=== PATIENT | female | born 1945 | race Caucasian/White ===

== ENCOUNTER 2017-08-26 23:42 | Inpatient (IN) ==
[2017-08-27] MEDS ORDERED: Naloxone 0.4 MG/ML INJ IVP PRN (03:22)
[2017-08-27] MEDS: D5% in 0.45% NACL 1,000 ML IVC SCH ×2 (03:41→14:36)
--- NOTE | 2017-08-27 03:54 | Internal Med History&Physical ---
<Kai Cunha - Last Filed: 08/27/17 04:15> Date of Encounter: 08/27/17 Time of Encounter: 03:38 Assessment and Plan (1) Trismus Current visit: Yes Status: Acute Trismus possibly secondary to PSP vs. Oropharyngeal infection The patient apparently has documented history of PSP which has been treated by neurology She got a dose of diazepam at previous ER which was not very helpful Although the patient does have trismus, she remains stable by every standard Although PSP may be the cause, I will evaluate for possible signs of infection CT head/soft tissue neck with contrast Consult to Neuro + ENT in the morning Maintain NPO diet, maintain Aspiration precautions Will give maintenance fluids IV, D5 1/2 NS at rate of 100mls/hr This patient expected to have poor prognosis due to progessive degenerative neurological disease. (2) Progressive supranuclear palsy Current visit: Yes Status: Acute PSP by personal history Treated by neurology but not on any medications at this time We will get a neurology consult in the morning (3) Aspiration pneumonia due to gastric secretions Current visit: Yes Status: Acute Aspiration in Middle and Lower lobe of Right lung, demonstrated on CT Chest Likely due to dysphagia while eating and aspiration of oral secretions The patient recieved Rocephin and Azithromycin in the ED in [place] We will start her on IV Zosyn 3.375 q6h Maintain NPO diet, Aspiration precautions Qualifiers: Laterality: right Lung location: middle lobe of lung Qualified Code(s): J69.0 - Pneumonitis due to inhalation of food and vomit (4) Protein calorie malnutrition Current visit: Yes Status: Acute Severe protein calorie malnutrition, BMI 14.8 Patient remains NPO at this time We will start IV Fluids with D5 1/2 NS, consider alternatives in future as needed Qualifiers: Protein-calorie malnutrition severity: severe Qualified Code(s): E43 - Unspecified severe protein-calorie malnutrition (5) DVT prophylaxis Current visit: Yes Status: Acute SQ Heparin Internal Medicine - H&P: HPI Chief complaint: Trismus Admitted From: Hospital to Hospital Transfer Plans for Post Hospital Care: Home History of present illness: Ms. Miguel is a 72 year old female with history of excessive supranuclear palsy (PSP), cardiac ablation due to who presents to a DNR from [facility] due to aspiration pneumonia and trismus. The patient is accompanied by her power of claims attorney and long-time friend, Peyton ([phone]) who provides the majority of The patient's story. The patient apparently has a progressive supranuclear palsy which has resulted in dysphagia, intermittent trismus and left sided body weakness for approximately 9 years. Apparently she regularly has problems with her jaw locking up, which are intermittent in nature, but then generally resolve spontaneously after only a short time. In the past week, the patient has apparently been experiencing more of these than she usually does, but as of this morning it was noted that her jaw remained in a locked position without her being able to move it at all. This is not something that she has ever experienced. In addition, it's noted that the patient has apparently had thicker oral secretions than is usual. In regard to the patient's medical history, Peyton mentions that she's been seen and treated by a neurologist for PSP for as long as she's had the disease. As the disease has progressed, she's noticed that she has had increasing weakness on the left side of her body, and she's been losing weight. The patient is generally relatively independent, despite constant medical assistance, and has been able to move herself into and out of a chair. The patient does ambulate with a walker and with assistance. Until this past June, she has also been able to feed herself. Since june, she has had increased difficulty with self -feeding and ADLs, and has required help to feed herself. Peyton says that the patient has also had more episodes of aspiration and choking related to this as well. She otherwise has no acute complaints. She was seen at the [facility] where she was given 2mg diazepam, which apparently did not help for longer than a minute or two. She did have a CT of the chest which demonstrated extensive aspiration pneumonia in the right middle and lower lobes, without pneumonia present in the left lung. Past Med Surg Social Fam HX - Past Medical History Medical history: pulmonary embolus Psychiatric history: no psych history - Past Surgical History Surgical History: appendectomy, orthopedic, other - Social History Smoking Status: Never smoker Internal Medicine - H&P: Meds 3 Allergy/AdvReac Type Severity Reaction Status Date / Time codeine Allergy Itching Verified 08/27/17 03:51 ROS unobtainable: other (Inability to communicate due to trismus) All Systems PM: A 10-system review of systems was performed and is negative for pertinent findings except as documented above in the HPI. Review of systems: although the patient is unable to personally communicate, her power of claims attorney did indicate that she has had no other acute complaints. She denied complaints from the patient about fever, chills, sweats, cough, chest pains, urinary or bowel problems, abdominal pain, nausea, vomiting, headache. - Constitutional Vitals: Temp Pulse Resp BP Pulse Ox 97.6 F 77 16 110/68 92 08/27/17 02:18 08/27/17 02:18 08/27/17 02:18 08/27/17 02:18 08/27/17 02:18 Exam: Gen.: Vitals noted. HEENT: PERRL, oropharynx unable to be examined 2/2 tightly clenched jaw and increase muscle tonicity, Normocephalic, atraumatic. Mucous membranes appear moist Neck: No adenopathy. Increased tonicity of scalenes, apparent torticolis to the right Cardiac: RRR, no murmur, +S1/S2 Pulmonary: CTA bilaterally, no wheezes, rales or rhonchi, equal chest expansion but technically challenging exam due to inability of patient to fully cooperate Abdomen: soft, nontender, BS noted, no guarding Extremities: no BLE edema, nontender calf, no cyanosis or clubbing Neuro: Challenging to examin, negative babinski, increased muscle tonicity in the neck and muscles of mastication <Frank Raymundo - Last Filed: 08/27/17 04:26> Date of Encounter: 08/27/17 Internal Medicine - H&P: HPI History of present illness: Ms. Miguel is a 72 year old female All Systems PM: A 10-system review of systems was performed and is negative for pertinent findings except as documented above in the HPI. - Constitutional Vitals: Temp Pulse Resp BP Pulse Ox 97.6 F 77 16 110/68 92 08/27/17 02:18 08/27/17 02:18 08/27/17 02:18 08/27/17 02:18 08/27/17 02:18 - Attending Attestation I examined this patient and my medical decision-making was reviewed with the Resident Physician. I agree with the documented findings, disposition and treatment plan as described except to the extent set forth below. Lenore is a 72 yo male who presents with 1 week of progressive jaw trimus, unable to eat. She was transferred from [place] to [facility] for further care after initial triage found her to have a right aspiration PNA , oral secretions in setting of jaw trimus She has had progressive supranuclear palsy for the last 10 years and had been with a neurologist that had retired. She lives alone and has C and POA visiting intermittently. At baseline, she is dependent on assistance for B-ADL. She is a 1 assist with feeding and uses a roller walker. POA reports slow decline since Jun 2017 but had progressed rapidly in the last week with jaw locking up. She takes no medications except for qHS setraline. She has had trimus prior in the past but this presentation is the most severe General - Open eyes Psych - Unable to speech Eyes - Eye lids intact. No scleral icterus Neuro - Does not move, peripheral muscle atrophy. Jaw muscle appears tonic Heart - Sinus. RRR. S1 and S2 present. No added HS/murmurs appreciated. No elevated JVD appreciated. Lung - Adequate air entry b/l, Right side and bibasal crackles GI - Soft, non-tender. No hepatosplenomegaly/ascites. BS+ - No CVA/suprapubic tenderness or palpable bladder distension Skin - Intact. No rash/petechiae/ecchymosis. Warm extremities MSK - mild contracted appearing ROS 14 point review of systems reviewed as best as possible given presentation. Pertinent positive or negative as per HPI or otherwise reviewed as negative A/P 1) Aspiration PNA - IV antibiotics - 2/2 PSP 2) Trismus of jaw - likely related to neurodegenerative disease - PSP - check CT neck to r/o infection - consult ENT, neuro to eval 3) Progressive supranuclear palsy - consult neuro 4) Protein calorie malnutrition Consider palliative care for support, re-visit goals VALENTÍN wishes for full code at current
[2017-08-27 04:23] LABS: Basophils % 0.3 %; Eosinophils % 0.2 %; Hematocrit 29.2 % (35.3-44.9); Hemoglobin 9.3 g/dL (11.5-15.4); Immature Granulocytes % 0.5 % (0-4); Lymphocytes % 16.4 %; Mean Corpuscular HGB Conc 31.8 g/dL (31.6-35.5); Mean Corpuscular Hemoglobin 27.2 pg (28.0-33.3); Mean Corpuscular Volume 85.4 fL (83.0-100.0); Mean Platelet Volume 8.3 fL (9.4-12.4); Monocytes # 0.3 K/mcL (0.0-1.3); Monocytes % 5.8 %; Neutrophils # 4.5 K/mcL (1.6-8.9); Platelet Count 205 K/mcL (140-400); Red Blood Count 3.42 M/mcL (3.82-4.97); Red Cell Distribution Width 15.9 % (11.5-14.5); Segmented Neutrophils % 76.8 %
[2017-08-27 04:47] LABS: BUN/Creatinine Ratio 46 (6-26); Blood Urea Nitrogen 26 mg/dL (8-23); Calcium 8.4 mg/dL (8.6-10.3); Carbon Dioxide 25 mEq/L (23-29); Chloride 116 mEq/L (98-107); Glucose 111 mg/dL (70-105); Osmolality,Calculated 309 (280-300); Sodium 147 mEq/L (136-145); eGFR For African Americans > 60 (> 60); eGFR For Non-African Americans > 60 (> 60)
[2017-08-27 05:11] LABS: Platelet Estimate Normal (Normal)
[2017-08-27] MEDS ORDERED: Piperacillin/Tazobactam 3.375 GM/200 ML BAG IVPB SCH (06:00)
[2017-08-27] MEDS: *HR* Heparin 5,000 UNIT/ML VIAL SQ SCH ×2 (06:42→18:07)
--- NOTE | 2017-08-27 09:09 | Event Note ---
Date of Encounter: 08/27/17 Time of Encounter: 09:08 Gen.: Vitals noted. No acute distress. Patient is non-verbal at baseline and unable to provide a history. Caregiver at bedside. HEENT: oropharynx clear, Normocephalic, atraumatic Neck: Supple. No adenopathy. Cardiac: RRR, no murmur, +S1/S2 Pulmonary: CTA bilaterally, decreased breath sounds on the right side, no wheezes, rales or rhonchi, equal chest expansion Abdomen: soft, nontender, Bowel sounds noted, no guarding MSK: ROM decreased, no joint swelling noted Extremities: no BLE edema, nontender calf, no cyanosis or clubbing Neuro: non-verbal, cannot move all extremities, left sided weakness (chronic), strength 3/5 left side and 4/5 right side UE, hyperreflexia and babinski negative. Psych: Appropriate mood and behavior A/P Trismus secondary to PSP Aspiration pneumonia due to gastric secretions Currently being treated w/ Zosyn IVP Q8H Progressive supranuclear palsy Neurology consult Protein calorie malnutrition BMI of 14.8. Patient remains NPO at this time. Perhaps consult scientific aide when no longer NPO. DVT prophylaxis SQ Heparin
--- NOTE | 2017-08-27 10:03 | Neurology - Consult Note ---
<Kai Arevalo - Last Filed: 08/27/17 09:57> Date of Encounter: 08/27/17 Time of Encounter: 09:57 Assessment and Plan (1) Trismus Current Visit: Yes Status: Acute (2) Progressive supranuclear palsy Current Visit: Yes Status: Chronic History of Present Illness Chief complaint: Inability to open jaw HPI: Ms. Miguel is a 72 year old female with history of progressive supranuclear palsy who presents with inability to open her jaw. Patient is non-verbal at baseline and is unable to provide a history. Caregiver is at bedside and provides the history. Caregiver states that she was diagnosed with PSP approximately 10 years. She has had progressive worsening of her neurological symptoms. Caregiver reports that about a week ago the patient developed an inability to open her jaw. Caregiver states that the patient has had this issue in the past but it usually resolves in a day or two. Caregiver states she has been unable to open her jaw for a week now. Otherwise caregiver reports patient is at her baseline. At baseline the patient is weak but able to drink water on her own. She is nonverbal but can communicate with hand gestures. She is normally fed by her caregivers and has tolerated a soft diet before her current symptoms developed. Increased oral secretions have been noted by caregiver but no cough, dyspnea, fever, chills have been noted. Past Med Surg Social Fam HX - Past Medical History Medical history: pulmonary embolus Psychiatric history: no psych history - Past Surgical History Surgical History: appendectomy, orthopedic, other - Social History Smoking Status: Never smoker Medications and Allergies Sertraline [Zoloft] 100 mg PO DAILY 08/27/17 [History] 3 Allergy/AdvReac Type Severity Reaction Status Date / Time codeine Allergy Itching Verified 08/27/17 03:51 ROS unobtainable: due to mental status All Systems: A 10-system review of systems was performed and is negative for pertinent findings except as documented above in the HPI. Physical Examination - Vital Signs Vital Signs: Initial Vital Signs Temp Pulse Resp BP Pulse Ox 97.6 F 77 16 110/68 92 08/27/17 02:18 08/27/17 02:18 08/27/17 02:18 08/27/17 02:18 08/27/17 02:18 - Exam Exam: Active and Passive range of motion to jaw is absent. - Constitutional General appearance: chronically ill - Neurologic Sensorimotor examination: rigidity (diffuse, most prominent in UE bilaterally) Motor examination - right side: 3/5: biceps, net developer, hip flexors, toe extension ( EHL), plantarflexion Motor examination - left side: 3/5: deltoids, biceps, 4/5: net developer, quadriceps, plantarflexion Detailed sensory examination: other (unable to assess) Reflexes: Biceps: 3+, Brachioradialis: 3+, Patella: 1+ (1+ on L, absent on R), Achilles: 2+ Mental Status Examination: awake, alert (unable to assess level of alertness), follows commands appropriately, opens eyes to voice, opens eyes to noxious stimulation, follows simple commands, cognitive impairment Cranial nerve examination: no facial asymmetry is present Results - Laboratory Findings CBC and BMP: 08/27/17 04:06 08/27/17 04:06 Abnormal lab findings: Abnormal lab results RBC 3.42 M/mcL (3.82-4.97) L 08/27/17 04:06 Hgb 9.3 g/dL (11.5-15.4) L 08/27/17 04:06 Hct 29.2 % (35.3-44.9) L 08/27/17 04:06 MCH 27.2 pg (28.0-33.3) L 08/27/17 04:06 RDW 15.9 % (11.5-14.5) H 08/27/17 04:06 MPV 8.3 fL (9.4-12.4) L 08/27/17 04:06 Sodium 147 mEq/L (136-145) H 08/27/17 04:06 Potassium 3.0 mEq/L (3.5-5.1) L 08/27/17 04:06 Chloride 116 mEq/L (98-107) H 08/27/17 04:06 BUN 26 mg/dL (8-23) H 08/27/17 04:06 Creatinine 0.56 mg/dL (0.60-1.20) L 08/27/17 04:06 BUN/Creatinine Ratio 46 (6-26) H 08/27/17 04:06 Glucose 111 mg/dL (70-105) H 08/27/17 04:06 Calculated Osmolality 309 (280-300) H 08/27/17 04:06 Calcium 8.4 mg/dL (8.6-10.3) L 08/27/17 04:06 Consult Discharge Plan - Plan Referrals: NONE,PCP [Primary Care Provider] - <Luis Johnson - Last Filed: 08/27/17 13:45> Date of Encounter: 08/27/17 History of Present Illness HPI: Ms. Miguel is a 72 year old female All Systems: A 10-system review of systems was performed and is negative for pertinent findings except as documented above in the HPI. Physical Examination - Vital Signs Vital Signs: Initial Vital Signs Temp Pulse Resp BP Pulse Ox 97.6 F 77 16 110/68 92 08/27/17 02:18 08/27/17 02:18 08/27/17 02:18 08/27/17 02:18 08/27/17 02:18 Results - Laboratory Findings CBC and BMP: 08/27/17 04:06 08/27/17 04:06 Abnormal lab findings: Abnormal lab results RBC 3.42 M/mcL (3.82-4.97) L 08/27/17 04:06 Hgb 9.3 g/dL (11.5-15.4) L 08/27/17 04:06 Hct 29.2 % (35.3-44.9) L 08/27/17 04:06 MCH 27.2 pg (28.0-33.3) L 08/27/17 04:06 RDW 15.9 % (11.5-14.5) H 08/27/17 04:06 MPV 8.3 fL (9.4-12.4) L 08/27/17 04:06 Sodium 147 mEq/L (136-145) H 08/27/17 04:06 Potassium 3.0 mEq/L (3.5-5.1) L 08/27/17 04:06 Chloride 116 mEq/L (98-107) H 08/27/17 04:06 BUN 26 mg/dL (8-23) H 08/27/17 04:06 Creatinine 0.56 mg/dL (0.60-1.20) L 08/27/17 04:06 BUN/Creatinine Ratio 46 (6-26) H 08/27/17 04:06 Glucose 111 mg/dL (70-105) H 08/27/17 04:06 Calculated Osmolality 309 (280-300) H 08/27/17 04:06 Calcium 8.4 mg/dL (8.6-10.3) L 08/27/17 04:06 - Attending Attestation I personally interviewed and examined this patient. I discussed the case with her caregiver. I reviewed all labs and studies. I saw and discussed this patient with Dr. Ngo, internal medicine resident. I agree with her findings, assessment and plan. ENT input is appreciated. We had a lengthy discussion with the patient's caregiver regarding goals of care. Speech therapy is consulted to assist with evaluating swallowing. Her trismus appears to be improved with benzodiazepine use. Continue with antibiotics for suspected aspiration pneumonia, currently on Unasyn now. All else as outlined. Considerable discussion regarding the possibility of a malignancy, and whether or not the patient would benefit from further investigation into this, given her comorbidities including progressive supranuclear palsy
--- NOTE | 2017-08-27 12:39 | ENT - Consult Note ---
Date of Encounter: 08/27/17 Time of Encounter: 12:30 Assessment and Plan (1) Trismus Current Visit: Yes Status: Acute White female with decreased jaw mobility possibly not trismus no obvious ENT source of trismus on physical evaluation however CT suggested some degeneration of the right head of the condyle which could be consistent with severe arthritis which can cause trismus also there is no evidence of infection there is no evidence of third molars no evidence of fractures of the jaw or anything inflammatory which could be a possible cause of trismus review of literature reveals the initiation of trismus with progressive supranuclear palsy also question possible hypocalcemia as cause of trismus as well as possible arthritis or possible patient having lockjaw with the difficulty of translating the jaw repetitively which might appear like trismus but is really just decreased mobility of the jaw periodic from jaw joint issues further recommendation of the right jaw joint by a oral surgeon or evaluation of this patient when we can communicate more effectively with her and get a better response to evaluate jaw joint motion would be appropriate no dislocation of TMJs noted on CT either (2) Progressive supranuclear palsy Current Visit: Yes Status: Chronic History of Present Illness Consult date: 08/27/17 Reason for ENT Consult: other (trismus) History of present illness: White female history of supranuclear palsy and history of recurrent trismus with recent episode of trismus for the last several days with limited mobility of the jaws this patient is very unresponsive in her history was obtained from a friend who knows her quite well this episode of locked jaw has been much longer than the previous episodes the patient is currently very unresponsive medicine asked her consultation to rule out ENT causes of trismus Past Med Surg Social Fam HX - Past Medical History Medical history: pulmonary embolus Psychiatric history: no psych history - Past Surgical History Surgical History: appendectomy, orthopedic, other - Social History Smoking Status: Never smoker Medications and Allergies Sertraline [Zoloft] 100 mg PO DAILY 08/27/17 [History] 3 Allergy/AdvReac Type Severity Reaction Status Date / Time codeine Allergy Itching Verified 08/27/17 03:51 ENT Exam Initial Vital Signs Temp Pulse Resp BP Pulse Ox 97.6 F 77 16 110/68 92 08/27/17 02:18 08/27/17 02:18 08/27/17 02:18 08/27/17 02:18 08/27/17 02:18 - General physical appearance well developed, well nourished, no distress, no pain, other (Patient is nonresponsive unable to move her eyes noncommunicative and nonresponsive though she is conscious). negative: moderate distress, severe distress, moderate pain , severe pain, cachectic, obese - Eyes PERRL, icteric, loss of movement - ENT normal pinna, normal nares, normal mucosa, no hearing loss, no congestion, Other (Reasonably normal dentition on gross evaluation able to get the jaws opened slightly and not more than several millimeters). negative: decreased hearing, deviated nasal septum, nasal discharge, poor retirement, dentures, mucosal exudate, dry mucosa - Neck no masses, trachea midline, no lymphadectomy. negative: deviated trachea, diffuse goiter, limited ROM - Respiratory normal expansion, normal respiratory effort, clear to percussion, clear to auscultation - Abdomen Abdomen: soft, non tender, bowel sounds, no tender, no surgical scars - Integumentary no rash, no growths, no abnormal pigmentation - Neurologic other (Cursory exam reveals nonresponsive patient know demonstrated movement of eyes jaws or other body parts) - Musculoskeletal normal gait, normal posture - Psychiatric other (Nonresponsive nonverbal non-mobile) Exam Initial Vital Signs Temp Pulse Resp BP Pulse Ox 97.6 F 77 16 110/68 92 08/27/17 02:18 08/27/17 02:18 08/27/17 02:18 08/27/17 02:18 08/27/17 02:18 Results - Labs 08/27/17 04:06 08/27/17 04:06 Abnormal lab results RBC 3.42 M/mcL (3.82-4.97) L 08/27/17 04:06 Hgb 9.3 g/dL (11.5-15.4) L 08/27/17 04:06 Hct 29.2 % (35.3-44.9) L 08/27/17 04:06 MCH 27.2 pg (28.0-33.3) L 08/27/17 04:06 RDW 15.9 % (11.5-14.5) H 08/27/17 04:06 MPV 8.3 fL (9.4-12.4) L 08/27/17 04:06 Sodium 147 mEq/L (136-145) H 08/27/17 04:06 Potassium 3.0 mEq/L (3.5-5.1) L 08/27/17 04:06 Chloride 116 mEq/L (98-107) H 08/27/17 04:06 BUN 26 mg/dL (8-23) H 08/27/17 04:06 Creatinine 0.56 mg/dL (0.60-1.20) L 08/27/17 04:06 BUN/Creatinine Ratio 46 (6-26) H 08/27/17 04:06 Glucose 111 mg/dL (70-105) H 08/27/17 04:06 Calculated Osmolality 309 (280-300) H 08/27/17 04:06 Calcium 8.4 mg/dL (8.6-10.3) L 08/27/17 04:06 Diabetes panel 08/27/17 Range/Units 04:06 Sodium 147 H (136-145) mEq/L Potassium 3.0 L (3.5-5.1) mEq/L Chloride 116 H (98-107) mEq/L Carbon Dioxide 25 (23-29) mEq/L BUN 26 H (8-23) mg/dL Creatinine 0.56 L (0.60-1.20) mg/dL Glucose 111 H (70-105) mg/dL Calcium 8.4 L (8.6-10.3) mg/dL Calcium panel 08/27/17 Range/Units 04:06 Calcium 8.4 L (8.6-10.3) mg/dL Pituitary panel 08/27/17 Range/Units 04:06 Sodium 147 H (136-145) mEq/L Potassium 3.0 L (3.5-5.1) mEq/L Chloride 116 H (98-107) mEq/L Carbon Dioxide 25 (23-29) mEq/L BUN 26 H (8-23) mg/dL Creatinine 0.56 L (0.60-1.20) mg/dL Glucose 111 H (70-105) mg/dL Calcium 8.4 L (8.6-10.3) mg/dL Adrenal panel 08/27/17 Range/Units 04:06 Sodium 147 H (136-145) mEq/L Potassium 3.0 L (3.5-5.1) mEq/L Chloride 116 H (98-107) mEq/L Carbon Dioxide 25 (23-29) mEq/L BUN 26 H (8-23) mg/dL Creatinine 0.56 L (0.60-1.20) mg/dL Glucose 111 H (70-105) mg/dL Calcium 8.4 L (8.6-10.3) mg/dL All other labs normal. Consult Discharge Plan - Plan Referrals: NONE,PCP [Primary Care Provider] -
[2017-08-27] MEDS: Ampicillin/Sulbactam 3,000 MG in 0.9 % Sodium Chloride Mini Bag 100 ML IVPB SCH ×2 (14:42→18:07)
--- NOTE | 2017-08-27 14:46 | Event Note ---
Date of Encounter: 08/27/17 Time of Encounter: 14:42 This is the assessment and plan for the neurology consult note which was co- signed by the hospitalist attending in error. Progressive supranuclear palsy: Patient's jaw muscle rigidity may be progression of her disease. Unfortunately there is not much to do from a neurologic standpoint. Patient may benefit from Botox injections as an outpatient to address her muscle spasticity. Would recommend she follow-up with her outpatient neurologist to address these concerns. Given her jaw dysfunction feeding may become an issue. Will defer to primary team for further management..
--- NOTE | 2017-08-27 15:29 | Neurology - Consult Note ---
Date of Encounter: 08/27/17 Time of Encounter: 15:24 Assessment and Plan (1) Progressive supranuclear palsy Current Visit: Yes Status: Chronic Based on her neurologic examination the diagnosis of progressive supranuclear palsy is fitting. She is demented, she does have axial rigidity, I am unable to assess her for supranuclear palsy. However she is parkinsonian. Unfortunately I do not feel there is much that I can offer her as an outpatient. Perhaps H Ap of Botox injected in the temporalis and masseter muscles bilaterally may offer some relief. However ultimately I believe that she will be at risk for aspiration if she takes food orally and a PEG tube will be the best long-term solution. I will reevaluate her at your request. History of Present Illness HPI: Ms. Miguel is a 72 year old female with history of progressive supranuclear palsy who presents with inability to open her jaw. Patient is non-verbal at baseline and is unable to provide a history. Caregiver is at bedside and provides the history. Caregiver states that she was diagnosed with PSP approximately 10 years. She has had progressive worsening of her neurological symptoms. Caregiver reports that about a week ago the patient developed an inability to open her jaw. Caregiver states that the patient has had this issue in the past but it usually resolves in a day or two. Caregiver states she has been unable to open her jaw for a week now. Otherwise caregiver reports patient is at her baseline. At baseline the patient is weak but able to drink water on her own. She is nonverbal but can communicate with hand gestures. She is normally fed by her caregivers and has tolerated a soft diet before her current symptoms developed. Increased oral secretions have been noted by caregiver but no cough, dyspnea, fever, chills have been noted. The history above was taken by Dr. Barba. The chart was reviewed, the patient was seen and examined. I agree with the history he is provided as stated above. Past Med Surg Social Fam HX - Past Medical History Medical history: pulmonary embolus Psychiatric history: no psych history - Past Surgical History Surgical History: appendectomy, orthopedic, other - Social History Smoking Status: Never smoker Medications and Allergies Sertraline [Zoloft] 100 mg PO DAILY 08/27/17 [History] 3 Allergy/AdvReac Type Severity Reaction Status Date / Time codeine Allergy Itching Verified 08/27/17 03:51 ROS unobtainable: due to mental status All Systems: A 10-system review of systems was performed and is negative for pertinent findings except as documented above in the HPI. Physical Examination - Vital Signs Vital Signs: Initial Vital Signs Temp Pulse Resp BP Pulse Ox 97.6 F 77 16 110/68 92 08/27/17 02:18 08/27/17 02:18 08/27/17 02:18 08/27/17 02:18 08/27/17 02:18 - Exam Exam: From a neurologic perspective the patient was awake, however she is not alert, she is nonverbal. She does not follow commands. She has very strong frontal releasing signs including who can grasp, glabellar, and palmomental. She does not make eye contact with me. Cranial nerves- difficult to evaluate as the patient has a diagnosis of supranuclear palsy therefore she cannot follow my finger volitionally, she is also severely demented and cannot focus on my finger or follow commands therefore I cannot even assess for cranial nerve functions. She does not open her mouth. Not able to passively open it. She is not verbal. I see no facial asymmetry. Motor exam-she has a very significant torticollis. She also has axial rigidity , as well as appendicular rigidity. She does appear parkinsonian. I see no involuntary movements however. She is a Cachectic. Deep tendon reflexes-she has 2+ of the biceps triceps and brachial radialis. Patellar reflexes and Achilles reflexes are absent. No Babinski signs.. No ankle clonus. Sensory exam-she does withdraw to noxious stim. Results - Laboratory Findings CBC and BMP: 08/27/17 04:06 08/27/17 04:06 Abnormal lab findings: Abnormal lab results RBC 3.42 M/mcL (3.82-4.97) L 08/27/17 04:06 Hgb 9.3 g/dL (11.5-15.4) L 08/27/17 04:06 Hct 29.2 % (35.3-44.9) L 08/27/17 04:06 MCH 27.2 pg (28.0-33.3) L 08/27/17 04:06 RDW 15.9 % (11.5-14.5) H 08/27/17 04:06 MPV 8.3 fL (9.4-12.4) L 08/27/17 04:06 Sodium 147 mEq/L (136-145) H 08/27/17 04:06 Potassium 3.0 mEq/L (3.5-5.1) L 08/27/17 04:06 Chloride 116 mEq/L (98-107) H 08/27/17 04:06 BUN 26 mg/dL (8-23) H 08/27/17 04:06 Creatinine 0.56 mg/dL (0.60-1.20) L 08/27/17 04:06 BUN/Creatinine Ratio 46 (6-26) H 08/27/17 04:06 Glucose 111 mg/dL (70-105) H 08/27/17 04:06 Calculated Osmolality 309 (280-300) H 08/27/17 04:06 Calcium 8.4 mg/dL (8.6-10.3) L 08/27/17 04:06 Consult Discharge Plan - Plan Referrals: NONE,PCP [Primary Care Provider] -
[2017-08-28] MEDS: Ampicillin/Sulbactam 3,000 MG in 0.9 % Sodium Chloride Mini Bag 100 ML IVPB SCH ×4 (00:39→18:35)
[2017-08-28 05:21] LABS: Hematocrit 29.9 % (35.3-44.9); Hemoglobin 9.4 g/dL (11.5-15.4); Mean Corpuscular HGB Conc 31.4 g/dL (31.6-35.5); Mean Corpuscular Volume 85.9 fL (83.0-100.0); Mean Platelet Volume 8.7 fL (9.4-12.4); Platelet Count 202 K/mcL (140-400); Red Blood Count 3.48 M/mcL (3.82-4.97); Red Cell Distribution Width 15.8 % (11.5-14.5)
[2017-08-28 05:38] LABS: BUN/Creatinine Ratio 33 (6-26); Blood Urea Nitrogen 18 mg/dL (8-23); Calcium 8.2 mg/dL (8.6-10.3); Carbon Dioxide 27 mEq/L (23-29); Chloride 113 mEq/L (98-107); Glucose 96 mg/dL (70-105); Osmolality,Calculated 300 (280-300); Potassium 3.1 mEq/L (3.5-5.1); Sodium 144 mEq/L (136-145); eGFR For African Americans > 60 (> 60); eGFR For Non-African Americans > 60 (> 60)
[2017-08-28] MEDS: *HR* Heparin 5,000 UNIT/ML VIAL SQ SCH ×2 (06:30→18:36)
[2017-08-28 06:49] LABS: Eosinophils # 0.2 K/mcL (0.0-0.6); Lymphocytes # 1.2 K/mcL (0.6-4.6); Monocytes # 0.1 K/mcL (0.0-1.3); Neutrophils # 3.4 K/mcL (1.6-8.9); Platelet Estimate Normal (Normal)
[2017-08-28] MEDS ORDERED: D5% in 0.45% NACL w KCl 20 MEQ/1,000 ML MLS IVC SCH (07:45)
--- NOTE | 2017-08-28 09:59 | Internal Med Progress Note ---
<AbernathyRomulo - Last Filed: 08/28/17 11:15> Date of Encounter: 08/28/17 Time of Encounter: 09:57 - Assessment and plan (1) Trismus Current Visit: Yes Status: Acute Assessment and plan: Possibly secondary to progression of PSP Both ENT and neurology were consulted and have nothing to offer while inpatient She does have slightly better mouth opening today VALENTÍN Todd states she needs more time to determine if she will change code status and feeding tube (2) Progressive supranuclear palsy Current Visit: Yes Status: Chronic Assessment and plan: Neurology consulted, no treatment while inpatient She may benefit from outpatient Botox (3) Aspiration pneumonia due to gastric secretions Current Visit: Yes Status: Acute Assessment and plan: NPO now as she likely aspirated prior to admission Barium swallow ordered; probably Wednesday Speech will evaluate once she is more able to open her mouth Continue Unasyn, day 2 Qualifiers: Laterality: right Lung location: middle lobe of lung Qualified Code(s): J69.0 - Pneumonitis due to inhalation of food and vomit (4) Protein calorie malnutrition Current Visit: Yes Status: Acute Assessment and plan: Will provide nutrition with D5 fluids for now Possible PEG tube if VALENTÍN desires this Qualifiers: Protein-calorie malnutrition severity: severe Qualified Code(s): E43 - Unspecified severe protein-calorie malnutrition (5) DVT prophylaxis Current Visit: Yes Status: Acute Assessment and plan: Heparin 5000 units BID - Subjective Interval history: Pt seen and examined. Her VALENTÍN Todd was at bedside and stated that she was slightly improved with her mouth opening this morning. Patient is non-verbal and usually able to communicate by thumbs up or down, but is unable to do so at this time. - Constitutional Vitals: Temp Pulse Resp BP Pulse Ox 97.5 F L 64 20 101/66 96 08/28/17 04:43 08/28/17 04:43 08/28/17 04:43 08/28/17 04:43 08/28/17 04:43 General appearance: Present: cachectic, mild distress. Absent: answers questions appropriately - Head Head exam: Present: atraumatic, normocephalic - Eye Eye exam: Present: PERRL, conjuntiva pink, sclera anicteric - Neck Neck exam general surgery: Present: supple, trachea midline. Absent: lymphadenopathy - Respiratory Respiratory exam: Present: rhonchi. Absent: accessory muscle use, rales, wheezes - Cardiovascular Cardiovascular exam: Present: RRR, +S1, +S2. Absent: diastolic murmur, gallop, rubs, systolic murmur - GI/Abdominal GI/Abdominal exam: Present: normal bowel sounds, soft, no peritoneal signs. Absent: distended, tenderness - Extremities Exam Extremities exam: Present: warm, radial pulses palpable and symmetrical. Absent : calf tenderness, cyanotic, pedal edema - Neurological Exam Neurological exam: Present: speech deficit. Absent: oriented X3 (unable to assess, patient is non-verbal), facial droop - Skin Skin exam: Present: dry, intact Internal Medicine: Result - Labs CBC & Chem 7: 08/28/17 04:47 08/28/17 04:47 Labs: Short CBC 08/28/17 Range/Units 04:47 WBC 4.9 (4.3-11.1) K/mcL Hgb 9.4 L (11.5-15.4) g/dL Hct 29.9 L (35.3-44.9) % Plt Count 202 (140-400) K/mcL Neutrophils # 3.4 (1.6-8.9) K/mcL BMP 08/28/17 04:47 Sodium 144 Potassium 3.1 L Chloride 113 H Carbon Dioxide 27 BUN 18 Creatinine 0.54 L Glucose 96 Calcium 8.2 L - Impressions Impressions Soft Tissue Neck CT 08/27/17 08:30 IMPRESSION: 1. Thickened secretion/soft tissue noted in the right bronchus intermedius, extending into the right lower lobe bronchi with associated collapse of the right lower lobe, and an associated small right pleural effusion. While this may be related to aspiration/pneumonia, underlying malignancy cannot entirely be excluded. Dedicated chest CT with IV contrast is recommended for further evaluation. 2. Nodular infiltrates in the right upper lobe of the lung, concerning for pneumonia. Enlarged right hilar and mediastinal lymph nodes, presumably reactive, however, metastatic disease cannot be excluded. 3. Nonspecific subcutaneous air noted in the left supraclavicular region. This may be related to recent intervention (example, left subclavian central venous line placement attempt), however, infection cannot be excluded. 4. There is a soft tissue mass noted along the posterior aspect of the right true vocal cord measuring 7 x 3 mm. Endoscopy is recommended for further evaluation. D/ / 08/27/2017 09:45:12 Denis Myers MD / Monica Weinberg Interpreting Provider: Denis Myers MD Consult Discharge Plan - Plan Referrals: NONE,PCP [Primary Care Provider] - <Luis Johnson - Last Filed: 08/28/17 12:36> Date of Encounter: 08/28/17 - Constitutional Vitals: Temp Pulse Resp BP Pulse Ox 97.5 F L 76 20 101/65 87 08/28/17 04:43 08/28/17 12:01 08/28/17 12:01 08/28/17 12:01 08/28/17 12:01 Internal Medicine: Result - Labs CBC & Chem 7: 08/28/17 04:47 08/28/17 04:47 Labs: Short CBC 08/28/17 Range/Units 04:47 WBC 4.9 (4.3-11.1) K/mcL Hgb 9.4 L (11.5-15.4) g/dL Hct 29.9 L (35.3-44.9) % Plt Count 202 (140-400) K/mcL Neutrophils # 3.4 (1.6-8.9) K/mcL BMP 08/28/17 04:47 Sodium 144 Potassium 3.1 L Chloride 113 H Carbon Dioxide 27 BUN 18 Creatinine 0.54 L Glucose 96 Calcium 8.2 L - Attending Attestation Personally interviewed and examined this patient. I agree discuss all the findings, assessment and plan with Dr. Abernathy, internal medicine resident. Patient's trismus appears to be improved. She will have a modified barium swallow on Wednesday. All else as outlined.
[2017-08-28] MEDS: Lacri-Lube 3.5 GM TUBE BOTH EYES SCH ×2 (12:30→21:12)
[2017-08-28] MEDS ORDERED: *HR* HYDROcodone/Acet 5/325 mg TABLET PO PRN (12:33)
[2017-08-28] MEDS ORDERED: Acetaminophen 325 MG TABLET PO PRN (12:33)
[2017-08-28] MEDS ORDERED: D5% in 0.45% NACL w KCl 20 MEQ/1,000 ML MLS IVC ONE (15:30)
[2017-08-28] MEDS: D5% in 0.45% NACL w KCl 20 MEQ/1,000 ML MLS IVC SCH (15:37)
[2017-08-29] MEDS: Ampicillin/Sulbactam 3,000 MG in 0.9 % Sodium Chloride Mini Bag 100 ML IVPB SCH ×5 (00:27→23:43)
[2017-08-29 05:02] LABS: Basophils % 0.5 %; Hematocrit 29.1 % (35.3-44.9); Immature Granulocytes % 0.8 % (0-4); Lymphocytes # 0.9 K/mcL (0.6-4.6); Lymphocytes % 23.1 %; Mean Corpuscular HGB Conc 30.9 g/dL (31.6-35.5); Mean Corpuscular Hemoglobin 26.3 pg (28.0-33.3); Mean Corpuscular Volume 85.1 fL (83.0-100.0); Mean Platelet Volume 8.5 fL (9.4-12.4); Monocytes # 0.2 K/mcL (0.0-1.3); Monocytes % 5.3 %; Neutrophils # 2.8 K/mcL (1.6-8.9); Nucleated Red Blood Cells 1.3 /100 WBC (0); Platelet Count 189 K/mcL (140-400); Red Blood Count 3.42 M/mcL (3.82-4.97); Red Cell Distribution Width 15.7 % (11.5-14.5); Segmented Neutrophils % 69.3 %
[2017-08-29 05:26] LABS: BUN/Creatinine Ratio 35 (6-26); Blood Urea Nitrogen 17 mg/dL (8-23); Calcium 7.8 mg/dL (8.6-10.3); Carbon Dioxide 22 mEq/L (23-29); Chloride 115 mEq/L (98-107); Glucose 123 mg/dL (70-105); Osmolality,Calculated 301 (280-300); Sodium 144 mEq/L (136-145); eGFR For African Americans > 60 (> 60); eGFR For Non-African Americans > 60 (> 60)
[2017-08-29] MEDS: *HR* Heparin 5,000 UNIT/ML VIAL SQ SCH ×2 (05:42→18:39)
[2017-08-29 05:53] LABS: Platelet Estimate Normal (Normal)
[2017-08-29] MEDS ORDERED: D5% in 0.45% NACL w KCl 20 MEQ/1,000 ML MLS IVC ONE (08:49)
--- NOTE | 2017-08-29 09:56 | Internal Med Progress Note ---
<AbernathyRomulo - Last Filed: 08/29/17 10:57> Date of Encounter: 08/29/17 Time of Encounter: 09:54 - Assessment and plan (1) Trismus Current Visit: Yes Status: Acute Assessment and plan: Possibly secondary to progression of PSP Both ENT and neurology were consulted and have nothing to offer while inpatient She does have slightly better mouth opening today VALENTÍN Todd states she needs more time to determine if she will change code status and feeding tube Awaiting barium swallow Wednesday prior to starting diet (2) Progressive supranuclear palsy Current Visit: Yes Status: Chronic Assessment and plan: Neurology consulted, no treatment while inpatient She may benefit from outpatient Botox per neurology (3) Aspiration pneumonia due to gastric secretions Current Visit: Yes Status: Acute Assessment and plan: NPO now as she likely aspirated prior to admission Barium swallow ordered; probably Wednesday Speech will evaluate once she is more able to open her mouth Continue Unasyn, day 3 Qualifiers: Laterality: right Lung location: middle lobe of lung Qualified Code(s): J69.0 - Pneumonitis due to inhalation of food and vomit (4) Protein calorie malnutrition Current Visit: Yes Status: Acute Assessment and plan: Will provide nutrition with D5 fluids for now Possible PEG tube if POA desires this Qualifiers: Protein-calorie malnutrition severity: severe Qualified Code(s): E43 - Unspecified severe protein-calorie malnutrition (5) DVT prophylaxis Current Visit: Yes Status: Acute Assessment and plan: Heparin 5000 units BID - Subjective Interval history: Pt seen and examined. Her VALENTÍN Todd was not at bedside this morning and patient is non-verbal. She was not able to communicate with me using hand motions. Will try to speak with her POA when she plans to come later today. - Constitutional Vitals: Temp Pulse Resp BP Pulse Ox 98.0 F 65 16 106/71 92 08/29/17 07:11 08/29/17 07:11 08/29/17 07:11 08/29/17 07:11 08/29/17 07:11 General appearance: Present: cachectic, A&O X 0. Absent: answers questions appropriately - Head Head exam: Present: atraumatic, normocephalic - Eye Eye exam: Present: conjuntiva pink, sclera anicteric - Neck Neck exam general surgery: Present: supple, trachea midline. Absent: lymphadenopathy - Respiratory Respiratory exam: Present: rales. Absent: accessory muscle use, rhonchi, wheezes - Cardiovascular Cardiovascular exam: Present: RRR, +S1, +S2. Absent: diastolic murmur, gallop, rubs, systolic murmur - GI/Abdominal GI/Abdominal exam: Present: normal bowel sounds, soft, no peritoneal signs. Absent: distended, tenderness - Extremities Exam Extremities exam: Present: warm, radial pulses palpable and symmetrical. Absent : calf tenderness, cyanotic, pedal edema - Neurological Exam Neurological exam: Present: no focal deficits. Absent: pronater drift, facial droop, speech deficit - Skin Skin exam: Present: dry, intact Internal Medicine: Result - Labs CBC & Chem 7: 08/29/17 04:22 08/29/17 04:22 Labs: Short CBC 08/29/17 Range/Units 04:22 WBC 4.0 L (4.3-11.1) K/mcL Hgb 9.0 L (11.5-15.4) g/dL Hct 29.1 L (35.3-44.9) % Plt Count 189 (140-400) K/mcL Neutrophils # 2.8 (1.6-8.9) K/mcL BMP 08/29/17 04:22 Sodium 144 Potassium 3.0 L Chloride 115 H Carbon Dioxide 22 L BUN 17 Creatinine 0.48 L Glucose 123 H Calcium 7.8 L Consult Discharge Plan - Plan Referrals: NONE,PCP [Primary Care Provider] - <Luis Johnson - Last Filed: 08/29/17 13:32> Date of Encounter: 08/29/17 - Constitutional Vitals: Temp Pulse Resp BP Pulse Ox 97.7 F 67 16 94/61 95 08/29/17 11:18 08/29/17 11:18 08/29/17 11:18 08/29/17 11:18 08/29/17 11:18 Internal Medicine: Result - Labs CBC & Chem 7: 08/29/17 04:22 08/29/17 04:22 Labs: Short CBC 08/29/17 Range/Units 04:22 WBC 4.0 L (4.3-11.1) K/mcL Hgb 9.0 L (11.5-15.4) g/dL Hct 29.1 L (35.3-44.9) % Plt Count 189 (140-400) K/mcL Neutrophils # 2.8 (1.6-8.9) K/mcL BMP 08/29/17 04:22 Sodium 144 Potassium 3.0 L Chloride 115 H Carbon Dioxide 22 L BUN 17 Creatinine 0.48 L Glucose 123 H Calcium 7.8 L - Attending Attestation Personally interviewed and examined this patient. I given the findings, assessment, and plan of Dr. Aberanthy, internal medicine resident. H&H trismus appears to be improved as she is opening her mouth more. She is a difficult historian, and moans frequently which is not unusual for her care provider. He is day 3 Unasyn for suspected aspiration pneumonia. She has a modified barium swallow planned tomorrow. I have had numerous discussions with her caregiver regarding utility of a feeding tube and she is leaning away from this as patient has progressive supranuclear palsy. There is also some concern of possible malignancy in her chest, which we discussed utility of further evaluation at this point have decided not to pursue. All else as outlined above.
[2017-08-29] MEDS: D5% in 0.45% NACL w KCl 20 MEQ/1,000 ML MLS IVC SCH (12:04)
[2017-08-29] MEDS: Lacri-Lube 3.5 GM TUBE BOTH EYES SCH ×2 (12:05→20:30)
[2017-08-29] MEDS: *HR* Morphine 2 MG/ML SYRINGE IVP PRN ×2 (12:20→20:41)
[2017-08-30 03:45] LABS: Basophils % 0.3 %; Eosinophils # 0.1 K/mcL (0.0-0.6); Eosinophils % 1.8 %; Hematocrit 27.5 % (35.3-44.9); Hemoglobin 8.5 g/dL (11.5-15.4); Immature Granulocytes % 1.3 % (0-4); Lymphocytes # 0.9 K/mcL (0.6-4.6); Lymphocytes % 23.9 %; Mean Corpuscular HGB Conc 30.9 g/dL (31.6-35.5); Mean Corpuscular Hemoglobin 26.2 pg (28.0-33.3); Mean Corpuscular Volume 84.6 fL (83.0-100.0); Mean Platelet Volume 8.5 fL (9.4-12.4); Monocytes # 0.2 K/mcL (0.0-1.3); Monocytes % 5.8 %; Platelet Count 181 K/mcL (140-400); Red Blood Count 3.25 M/mcL (3.82-4.97); Red Cell Distribution Width 15.7 % (11.5-14.5); Segmented Neutrophils % 66.9 %
[2017-08-30 04:00] LABS: Neutrophils # 2.5 K/mcL (1.6-8.9)
[2017-08-30 05:31] LABS: Platelet Estimate Normal (Normal)
[2017-08-30] MEDS: Ampicillin/Sulbactam 3,000 MG in 0.9 % Sodium Chloride Mini Bag 100 ML IVPB SCH ×4 (05:58→23:13)
[2017-08-30] MEDS: *HR* Heparin 5,000 UNIT/ML VIAL SQ SCH ×2 (05:59→17:29)
[2017-08-30] MEDS: Lacri-Lube 3.5 GM TUBE BOTH EYES SCH ×2 (08:39→23:13)
[2017-08-30] MEDS ORDERED: *HR* OxyCODONE Immed Rel 5 MG TABLET PO PRN (09:59)
[2017-08-30] MEDS ORDERED: OxyCODONE CONC 5 MG/0.25 ML ORAL.SYG PO PRN (10:03)
[2017-08-30 10:55] LABS: BUN/Creatinine Ratio 26 (6-26); Blood Urea Nitrogen 12 mg/dL (8-23); Calcium 7.7 mg/dL (8.6-10.3); Carbon Dioxide 23 mEq/L (23-29); Chloride 114 mEq/L (98-107); Glucose 82 mg/dL (70-105); Osmolality,Calculated 291 (280-300); Potassium 3.5 mEq/L (3.5-5.1); Sodium 141 mEq/L (136-145); eGFR For African Americans > 60 (> 60); eGFR For Non-African Americans > 60 (> 60)
--- NOTE | 2017-08-30 16:46 | Internal Med Progress Note ---
Date of Encounter: 08/30/17 Time of Encounter: 14:30 - Assessment and plan (1) Trismus Current Visit: Yes Status: Acute Assessment and plan: Unclear etiology. Has been evaluated by ENT, no evidence of infection, no ENT source. Evaluated by neurology, unfortunately no inpatient recommendations at this time, possible Botox injections to temporalis and masseter muscles bilaterally. Patient has been nothing by mouth since admission, cannot effectively swallow at this time. Discussed with speech therapist and dietitian-patient could not complete modified Barium swallow today as she was unable to swallow anything. Feeding tube may be an option at this time, but patient and POA have declined in the past. Plan of care discussed with patient's power of commercial litigation attorney, Peyton at bedside, who claims that noone has communicated anything with her during patient's hospital stay; explained to the best of my knowledge regarding Neurology and ENT recommendations; barium swallow was pending at the time of my meeting; however she has been updated by SPeech therapist and feels patient was not alert enough today, and would like to have them repeat the study; will hold off narcotics/ sedatives to assess further; to consider Palliative care consult; Overall guarded prognosis; (2) Progressive supranuclear palsy Current Visit: Yes Status: Chronic Assessment and plan: Neurology consulted, no treatment while inpatient She may benefit from outpatient Botox per neurology (3) Aspiration pneumonia due to gastric secretions Current Visit: Yes Status: Acute Assessment and plan: Continue Unasyn- day 4; not septic; O2 requirements at baseline; Continue NPO until further decision regarding feeding tube/Dubhoff tube, etc; Qualifiers: Laterality: right Lung location: middle lobe of lung Qualified Code(s): J69.0 - Pneumonitis due to inhalation of food and vomit (4) Protein calorie malnutrition Current Visit: Yes Status: Chronic Qualifiers: Protein-calorie malnutrition severity: severe Qualified Code(s): E43 - Unspecified severe protein-calorie malnutrition - Subjective Interval history: Patient is nonverbal at baseline. Bedbound, able to somewhat follow commands but has significant weakness all over; lock jaw persistent; - Constitutional Vitals: Temp Pulse Resp BP Pulse Ox 97.4 F L 69 18 110/72 93 08/30/17 11:43 08/30/17 11:43 08/30/17 11:43 08/30/17 11:43 08/30/17 11:43 General appearance: Present: cachectic, A&O X 1 (nonverbal at baseline, not very communicative). Absent: answers questions appropriately - Respiratory Respiratory exam: Present: CTAB (anterolaterally). Absent: accessory muscle use , rales, rhonchi, wheezes - Cardiovascular Cardiovascular exam: Present: RRR, +S1, +S2. Absent: diastolic murmur, gallop, rubs, systolic murmur - GI/Abdominal GI/Abdominal exam: Present: normal bowel sounds, soft, no peritoneal signs. Absent: distended, tenderness - Extremities Exam Extremities exam: Present: pedal edema, warm, radial pulses palpable and symmetrical. Absent: calf tenderness, cyanotic - Neurological Exam Neurological exam: Present: no focal deficits (diffuse decrease in motor power B /L extremities, left>right; facial droop; lock jaw). Absent: pronater drift, facial droop, speech deficit Internal Medicine: Result - Labs CBC & Chem 7: 08/30/17 03:21 08/30/17 03:21 Labs: Short CBC 08/30/17 Range/Units 03:21 WBC 3.8 L (4.3-11.1) K/mcL Hgb 8.5 L (11.5-15.4) g/dL Hct 27.5 L (35.3-44.9) % Plt Count 181 (140-400) K/mcL Neutrophils # 2.5 (1.6-8.9) K/mcL BMP 08/30/17 03:21 Sodium 141 Potassium 3.5 Chloride 114 H Carbon Dioxide 23 BUN 12 Creatinine 0.46 L Glucose 82 Calcium 7.7 L - Impressions Impressions Videofluoroscopic Swallow 08/30/17 00:01 IMPRESSION: Aborted study. Please see separate speech pathology report for full discussion of findings and recommendations. D/ / 08/30/2017 15:48:41 Bill Be MD / [email or web address] Interpreting Provider: Bill Be MD Consult Discharge Plan - Plan Referrals: NONE,PCP [Primary Care Provider] -
[2017-08-31] MEDS: Ampicillin/Sulbactam 3,000 MG in 0.9 % Sodium Chloride Mini Bag 100 ML IVPB SCH ×3 (06:02→17:23)
[2017-08-31] MEDS: *HR* Heparin 5,000 UNIT/ML VIAL SQ SCH ×2 (06:03→17:23)
[2017-08-31 07:38] LABS: BUN/Creatinine Ratio 33 (6-26); Blood Urea Nitrogen 15 mg/dL (8-23); Carbon Dioxide 23 mEq/L (23-29); Chloride 110 mEq/L (98-107); Glucose 58 mg/dL (70-105); Osmolality,Calculated 291 (280-300); Potassium 3.4 mEq/L (3.5-5.1); Sodium 141 mEq/L (136-145); eGFR For African Americans > 60 (> 60); eGFR For Non-African Americans > 60 (> 60)
[2017-08-31] MEDS: Lacri-Lube 3.5 GM TUBE BOTH EYES SCH ×2 (07:55→20:35)
[2017-08-31] MEDS ORDERED: *HR* Dextrose 50 % in Water (Syg) 50 ML SYRINGE IVP ONE (07:58)
--- NOTE | 2017-08-31 08:53 | Internal Med Progress Note ---
<Danyell Ngo - Last Filed: 08/31/17 13:27> Date of Encounter: 08/31/17 Time of Encounter: 08:50 - Assessment and plan (1) Trismus Current Visit: Yes Status: Acute Assessment and plan: Unclear etiology. ENT believe this could be severe arthritis vs lock jaw, and no evidence of infection, no ENT source. Evaluated by neurology, unfortunately no inpatient recommendations at this time, possible Botox injections to temporalis and masseter muscles bilaterally. CT suggested some degeneration of the right head of the condyle Patient has been nothing by mouth since admission, cannot effectively swallow at this time. Feeding tube may be an option at this time, but patient and POA have declined in the past. Barium swallow had to be canceled yesterday due to patients not alert enough to perform study. Discuss with POA if she would like to reattempt study state. Plan of care discussed with patient's power of commercial real estate attorney, Peyton Palliative care consult ordered poor prognosis overall (2) Aspiration pneumonia due to gastric secretions Current Visit: Yes Status: Acute Assessment and plan: [facility] CT of the chest which demonstrated extensive aspiration pneumonia in the right middle and lower lobes, without pneumonia present in the left lung. afebrile SPO2 98% room air Continue Unasyn- day 5 O2 requirements at baseline Continue NPO until further decision regarding feeding tube/Dubhoff tube, etc; Qualifiers: Laterality: right Lung location: middle lobe of lung Qualified Code(s): J69.0 - Pneumonitis due to inhalation of food and vomit (3) Progressive supranuclear palsy Current Visit: Yes Status: Chronic Assessment and plan: Neurology consulted, no treatment while inpatient She may benefit from outpatient Botox per neurology (4) Protein calorie malnutrition Current Visit: Yes Status: Chronic Assessment and plan: Will provide nutrition with D5 fluids for now Possible PEG tube if POA desires this Qualifiers: Protein-calorie malnutrition severity: severe Qualified Code(s): E43 - Unspecified severe protein-calorie malnutrition (5) Goals of care, counseling/discussion Current Visit: Yes Status: Acute Assessment and plan: plan to discuss with POA today at 4:30 PM the goals of care for the duration of the treatment. Very poor prognosis with current disease process PSP that is fatal. will discuss again with POA Peyton code status and feeding tube. (6) DVT prophylaxis Current Visit: Yes Status: Acute Assessment and plan: Heparin 5000 units BID - Subjective Interval history: Laying in bed unresponsive. She can only open her eyes that are very edematous. - Constitutional Vitals: Temp Pulse Resp BP Pulse Ox 97.4 F L 67 17 125/78 95 08/31/17 07:18 08/31/17 07:18 08/31/17 07:18 08/31/17 07:18 08/31/17 08:00 General appearance: Present: cachectic, A&O X 1 (nonverbal at baseline, not very communicative). Absent: answers questions appropriately Exam: Gen.: Vitals noted. No acute distress. AAOx0 HEENT: periorbital edema, oropharynx clear, Normocephalic, atraumatic Neck: Supple. No adenopathy. Cardiac: RRR, no murmur, +S1/S2 Pulmonary: decreased breathe sound right base, no wheezes, rales or rhonchi, equal chest expansion Abdomen: soft, nontender, Bowel sounds noted, no guarding MSK: ROM intact, no joint swelling noted Extremities: no BLE edema, nontender calf, no cyanosis or clubbing Neuro: A&Ox0, cannot move her extremities Psych: Appropriate mood and behavior Internal Medicine: Result - Labs CBC & Chem 7: 08/30/17 03:21 08/31/17 06:05 Labs: BMP 08/30/17 08/31/17 03:21 06:05 Sodium 141 141 Potassium 3.5 3.4 L Chloride 114 H 110 H Carbon Dioxide 23 23 BUN 12 15 Creatinine 0.46 L 0.45 L Glucose 82 58 L Calcium 7.7 L 8.0 L - Impressions Impressions Videofluoroscopic Swallow 08/30/17 00:01 IMPRESSION: Aborted study. Please see separate speech pathology report for full discussion of findings and recommendations. D/ / 08/30/2017 15:48:41 Bill Be MD / jitendra Interpreting Provider: Bill Be MD Consult Discharge Plan - Plan Referrals: NONE,PCP [Primary Care Provider] - <Adrian Mccartney H - Last Filed: 08/31/17 15:20> Date of Encounter: 08/31/17 - Constitutional Vitals: Temp Pulse Resp BP Pulse Ox 97.3 F L 69 15 114/71 98 08/31/17 11:41 08/31/17 11:41 08/31/17 11:41 08/31/17 11:41 08/31/17 11:41 Internal Medicine: Result - Labs CBC & Chem 7: 08/30/17 03:21 08/31/17 06:05 Labs: BMP 08/31/17 06:05 Sodium 141 Potassium 3.4 L Chloride 110 H Carbon Dioxide 23 BUN 15 Creatinine 0.45 L Glucose 58 L Calcium 8.0 L - Impressions Impressions Videofluoroscopic Swallow 08/30/17 00:01 IMPRESSION: Aborted study. Please see separate speech pathology report for full discussion of findings and recommendations. D/ / 08/30/2017 15:48:41 Bill Be MD / jitendra Interpreting Provider: Bill Be MD - Attending Attestation Very poor prognosis Would not recommend a PEG tube at this point, palliative care consult. We will discuss plan of care with POA I examined this patient and my medical decision-making was reviewed with the Resident Physician. I agree with the documented findings, disposition and treatment plan as described except to the extent set forth below.
[2017-08-31] MEDS: Ciprofloxacin OPTH Soln 2.5 ML BOTTLE BOTH EYES SCH ×3 (11:11→20:35)
[2017-08-31] MEDS ORDERED: Ciprofloxacin OPTH Soln 2.5 ML BOTTLE RIGHT EYE SCH (12:00)
--- NOTE | 2017-08-31 13:59 | Palliative - Consult Note ---
Date of Encounter: 08/31/17 Time of Encounter: 13:55 - Assessment and Plan (1) Goals of care, counseling/discussion Current Visit: Yes Status: Acute Assessment and plan: D/W Dr. Danyell Childers, who will be meeting with VALENTÍN/Peyton later this pm. With what appears to be the end stage of her progressive disease, I do not think that insertion of PEG tube would increase the quality of her life and most certainly will not delay progression of the disease. Although can provide nutrition, will not decrease risk of aspiration of even her own secretions, as well as tube feeding. Will f/u in am with Dr. Childers and VALENTÍN. (2) Dysphagia Current Visit: Yes Status: Acute Assessment and plan: MBS yesterday aborted r/t pt mental status. She appears more alert than described yesterday, and could follow simple commands for me. Opens eyes when spoken to. Will touch base with speech therapy and see if they desire to do bedside swallow for re=evaluation. MOnitor. Qualifiers: Dysphagia type: unspecified Qualified Code(s): R13.10 - Dysphagia, unspecified (3) Generalized pain Current Visit: Yes Status: Acute Assessment and plan: Patient does squeeze hand when asked if uncomfortable, and also moans out when turned moved. She previously had Oxycodone for pain - this is on hold as it was thought she was possibly oversedated and unable to participate yesterday. (4) Progressive supranuclear palsy Current Visit: Yes Status: Chronic Assessment and plan: Neurology consult reviewed and appreciated. (5) Aspiration pneumonia due to gastric secretions Current Visit: Yes Status: Acute Qualifiers: Laterality: right Lung location: middle lobe of lung Qualified Code(s): J69.0 - Pneumonitis due to inhalation of food and vomit Palliative-CN HPI - Data of Consult Consult date: 08/31/17 Requesting Physician: Renetta Muniz MD Primary Care Provider: PCP NONE - Consult Narrative History of present illness: Ms. Miguel is a 72 year old female with history of supranuclear palsy (PSP), who presented from [facility] due to aspiration pneumonia and trismus. Patient POA is not present, so most of information obtained from record as well as primary team. The patient apparently has a progressive supranuclear palsy which has resulted in dysphagia, intermittent trismus and left sided body weakness for approximately 9 years. Patient has had issues with "locked jaw" and has been unable to take any po nutrition. Patient was diagnosed many years ago with PSP, and has had increasing left sided weakness, increasing secretions, and difficulty with eating. Up until a short time ago, appears she was still fairly independent at home, although will clarify with POA. ENT/Neurology has been consulted and those notes were reviewed. Patient is considered to have end stage disease at this time. Upon my visit, she opens eyes when name called. She does follow commands to squeeze with right hand and can wiggle toes. She appears to be uncomfortable with assessment and moving - she moans loudly with much stimulation. No visitors are present. Patient's friend/POA Peyton ([phone]) who is closest to pt has been in contact with the primary team and is meeting with resident later today. CC: Renetta Muniz MD Past Med Surg Social Fam HX - Past Medical History Medical history: pulmonary embolus Psychiatric history: no psych history - Past Surgical History Surgical History: appendectomy, orthopedic, other - Social History Smoking Status: Never smoker Medications and Allergies Sertraline [Zoloft] 100 mg PO DAILY 08/27/17 [History] 3 Allergy/AdvReac Type Severity Reaction Status Date / Time codeine Allergy Itching Verified 08/27/17 03:51 ROS unobtainable: due to mental status Palliative Care-Exam - Constitutional Vitals: Temp Pulse Resp BP Pulse Ox 97.3 F L 69 15 114/71 98 08/31/17 11:41 08/31/17 11:41 08/31/17 11:41 08/31/17 11:41 08/31/17 11:41 General appearance: Present: no acute distress - Head Head Exam: Present: normal inspection, normocephalic - Respiratory Respiratory exam: Present: CTAB Additional comments: Shallow inspiratory effort - Cardiovascular Cardiovascular exam: Present: +S1, +S2 - GI/Abdominal Exam GI/Abdominal exam: Present: normal bowel sounds, soft - Extremities Exam Extremities exam: Present: normal capillary refill, normal inspection - Neurological Exam Additional comments: Opens eyes when spoken to. Left sided weakness. Does move right arm and can squeeze/wiggle toes on command. Moans with movement - Skin Skin exam: Present: dry, pallor, warm Internal Medicine - CN: Reslt - Labs CBC & Chem 7: 08/30/17 03:21 08/31/17 06:05 Labs: BMP 08/31/17 06:05 Sodium 141 Potassium 3.4 L Chloride 110 H Carbon Dioxide 23 BUN 15 Creatinine 0.45 L Glucose 58 L Calcium 8.0 L - Impressions Impressions Videofluoroscopic Swallow 08/30/17 00:01 IMPRESSION: Aborted study. Please see separate speech pathology report for full discussion of findings and recommendations. D/ / 08/30/2017 15:48:41 Bill Be MD / jitendra Interpreting Provider: Bill Be MD Consult Discharge Plan - Plan Referrals: NONE,PCP [Primary Care Provider] - Palliative Quality Palliative Quality: Screen for Code Status: NA (POA not present, pt unable to communicate), Screen for Goals of Care: NA, Screen for Pain: Yes, If Pain Regimen Started, Initiate Bowel Regimen: NA, Screen for Nausea/Vomitting: NA Code Status: 08/27/17 03:22 Resuscitation Status: Active [RES] Routine Comment: Resuscitation Status: Full Code
[2017-08-31] MEDS: Ketorolac 15 MG/ML VIAL IVP PRN (15:51)
--- NOTE | 2017-08-31 18:01 | Event Note ---
Date of Encounter: 08/31/17 Time of Encounter: 17:56 After a long conversation with Corinne she reported that she and Ms. Miguel had decided to change code status to DNR-CCA-DNI. She also reported that they still want a peg tube placed for feedings. She was explained to that the patient could still aspirate again despite having a feeding tube. I also gave her Ct from Palliative care phone number so that she could get more information about what palliative might be able to offer should they decide on hospice care.
[2017-09-01] MEDS: Ciprofloxacin OPTH Soln 2.5 ML BOTTLE BOTH EYES SCH ×6 (00:48→21:28)
[2017-09-01] MEDS: Ampicillin/Sulbactam 3,000 MG in 0.9 % Sodium Chloride Mini Bag 100 ML IVPB SCH ×5 (00:49→17:54)
[2017-09-01 04:25] LABS: Mean Corpuscular HGB Conc 32.1 g/dL (31.6-35.5); Mean Corpuscular Hemoglobin 26.9 pg (28.0-33.3); Mean Corpuscular Volume 83.6 fL (83.0-100.0); Mean Platelet Volume 8.5 fL (9.4-12.4); Platelet Count 183 K/mcL (140-400); Red Blood Count 3.35 M/mcL (3.82-4.97); Red Cell Distribution Width 15.4 % (11.5-14.5)
[2017-09-01 04:41] LABS: BUN/Creatinine Ratio 31 (6-26); Blood Urea Nitrogen 17 mg/dL (8-23); Calcium 7.7 mg/dL (8.6-10.3); Carbon Dioxide 25 mEq/L (23-29); Chloride 112 mEq/L (98-107); Glucose 64 mg/dL (70-105); Osmolality,Calculated 296 (280-300); Potassium 3.3 mEq/L (3.5-5.1); Sodium 143 mEq/L (136-145); eGFR For African Americans > 60 (> 60); eGFR For Non-African Americans > 60 (> 60)
[2017-09-01] MEDS: *HR* Heparin 5,000 UNIT/ML VIAL SQ SCH ×2 (05:40→17:56)
[2017-09-01] MEDS ORDERED: *HR* Dextrose 50 % in Water (Syg) 50 ML SYRINGE ONE (06:52)
[2017-09-01] MEDS: Lacri-Lube 3.5 GM TUBE BOTH EYES SCH ×2 (08:50→21:28)
--- NOTE | 2017-09-01 10:00 | IR Consult Note ---
Date of Encounter: 09/01/17 Time of Encounter: 10:00 Assessment and Plan (1) Trismus Current Visit: Yes Status: Acute (2) Progressive supranuclear palsy Current Visit: Yes Status: Chronic (3) Aspiration pneumonia due to gastric secretions Current Visit: Yes Status: Acute Qualifiers: Laterality: right Lung location: middle lobe of lung Qualified Code(s): J69.0 - Pneumonitis due to inhalation of food and vomit (4) Goals of care, counseling/discussion Current Visit: Yes Status: Acute Consult date: 09/01/17 Physicians: Adrian Mccartney Consult Comment: Thank you for the consult. Call [facility] with questions or concerns. Past Med Surg Social Fam HX - Past Medical History Medical history: pulmonary embolus Psychiatric history: no psych history - Past Surgical History Surgical History: appendectomy, orthopedic, other - Social History Smoking Status: Never smoker Medications and Allergies Sertraline [Zoloft] 100 mg PO DAILY 08/27/17 [History] 3 Allergy/AdvReac Type Severity Reaction Status Date / Time codeine Allergy Itching Verified 08/27/17 03:51 Results Reviewed 09/01/17 03:02 09/01/17 03:02 Lab Results 09/01/17 09/01/17 08/31/17 03:02 03:02 06:05 WBC 3.8 L RBC 3.35 L Hgb 9.0 L Hct 28.0 L MCV 83.6 MCH 26.9 L MCHC 32.1 RDW 15.4 H Plt Count 183 MPV 8.5 L Neutrophils # Lymphocytes # Monocytes # Eosinophils # Basophils # Sodium 143 141 Potassium 3.3 L 3.4 L Chloride 112 H 110 H Carbon Dioxide 25 23 BUN 17 15 Creatinine 0.55 L 0.45 L Est GFR ( Amer) > 60 > 60 Est GFR (Non-Af Amer) > 60 > 60 BUN/Creatinine Ratio 31 H 33 H Glucose 64 L 58 L Calcium 7.7 L 8.0 L Magnesium 2.0 08/30/17 08/30/17 03:21 03:21 WBC 3.8 L RBC 3.25 L Hgb 8.5 L Hct 27.5 L MCV 84.6 MCH 26.2 L MCHC 30.9 L RDW 15.7 H Plt Count 181 MPV 8.5 L Neutrophils # 2.5 Lymphocytes # 0.9 Monocytes # 0.2 Eosinophils # 0.1 Basophils # 0.0 Sodium 141 Potassium 3.5 Chloride 114 H Carbon Dioxide 23 BUN 12 Creatinine 0.46 L Est GFR ( Amer) > 60 Est GFR (Non-Af Amer) > 60 BUN/Creatinine Ratio 26 Glucose 82 Calcium 7.7 L Magnesium Consult Discharge Plan - Plan Referrals: NONE,PCP [Primary Care Provider] -
--- NOTE | 2017-09-01 10:08 | IR Consult Note ---
Date of Encounter: 09/01/17 Time of Encounter: 10:00 Assessment and Plan (1) Trismus Current Visit: Yes Status: Acute (2) Progressive supranuclear palsy Current Visit: Yes Status: Chronic (3) Aspiration pneumonia due to gastric secretions Current Visit: Yes Status: Acute Qualifiers: Laterality: right Lung location: middle lobe of lung Qualified Code(s): J69.0 - Pneumonitis due to inhalation of food and vomit (4) Goals of care, counseling/discussion Current Visit: Yes Status: Acute Consult date: 09/01/17 Physicians: Adrian Mccartney Consult Comment: Thank you for the consult. Call [facility]IR with questions or concerns. Patient with progressive end stage neurologic disorder with likely aspiration pneumonia and inability to eat. Swallow study could not be done as the patient could not initiate swallowing. As per palliative care consult the patient will not benefit from gastrostomy tube. She is not a sedation candidate because of her condition. Placing a gastrostomy in this patient would cause pain and suffering without benefit. Past Med Surg Social Fam HX - Past Medical History Medical history: pulmonary embolus Psychiatric history: no psych history - Past Surgical History Surgical History: appendectomy, orthopedic, other - Social History Smoking Status: Never smoker Medications and Allergies Sertraline [Zoloft] 100 mg PO DAILY 08/27/17 [History] 3 Allergy/AdvReac Type Severity Reaction Status Date / Time codeine Allergy Itching Verified 08/27/17 03:51 Results Reviewed 09/03/17 07:21 09/03/17 07:21 Lab Results 09/01/17 09/01/17 08/31/17 03:02 03:02 06:05 WBC 3.8 L RBC 3.35 L Hgb 9.0 L Hct 28.0 L MCV 83.6 MCH 26.9 L MCHC 32.1 RDW 15.4 H Plt Count 183 MPV 8.5 L Neutrophils # Lymphocytes # Monocytes # Eosinophils # Basophils # Sodium 143 141 Potassium 3.3 L 3.4 L Chloride 112 H 110 H Carbon Dioxide 25 23 BUN 17 15 Creatinine 0.55 L 0.45 L Est GFR ( Amer) > 60 > 60 Est GFR (Non-Af Amer) > 60 > 60 BUN/Creatinine Ratio 31 H 33 H Glucose 64 L 58 L Calcium 7.7 L 8.0 L Magnesium 2.0 08/30/17 08/30/17 03:21 03:21 WBC 3.8 L RBC 3.25 L Hgb 8.5 L Hct 27.5 L MCV 84.6 MCH 26.2 L MCHC 30.9 L RDW 15.7 H Plt Count 181 MPV 8.5 L Neutrophils # 2.5 Lymphocytes # 0.9 Monocytes # 0.2 Eosinophils # 0.1 Basophils # 0.0 Sodium 141 Potassium 3.5 Chloride 114 H Carbon Dioxide 23 BUN 12 Creatinine 0.46 L Est GFR ( Amer) > 60 Est GFR (Non-Af Amer) > 60 BUN/Creatinine Ratio 26 Glucose 82 Calcium 7.7 L Magnesium Consult Discharge Plan - Plan Referrals: NONE,PCP [Primary Care Provider] -
--- NOTE | 2017-09-01 11:08 | Internal Med Progress Note ---
Addendum entered and electronically signed by Danyell Ngo DO 09/01/17 11:21: Gen.: Vitals noted. No acute distress. HEENT: oropharynx clear, Normocephalic, atraumatic Neck: Supple. No adenopathy. Cardiac: RRR, no murmur, +S1/S2 Pulmonary: decreased but CTA bilaterally, no wheezes, rales or rhonchi, equal chest expansion Abdomen: soft, nontender, Bowel sounds noted, no guarding MSK: ROM intact, no joint swelling noted Extremities: no BLE edema, nontender calf, no cyanosis or clubbing Neuro:, moves all extremities Original Note: <Danyell Ngo - Last Filed: 09/01/17 11:05> Date of Encounter: 09/01/17 Time of Encounter: 10:00 - Assessment and plan (1) Protein calorie malnutrition Current Visit: Yes Status: Chronic Assessment and plan: POBurt Todd stated that she would like the patient to have a peg tube placed despite risk of aspiration and against the recommendations of palliative care, neurology, and primary hospitalist team. Interventional radiology was consulted to place the peg tube and after their evaluation they say that she is not a sedation candidate because for condition. Swallow study cannot be done due to patient cannot initiate swallowing. They believe place a gastrostomy tube in this patient will cause pain and suffering without benefit. At this time we will have a DOP OV placed for tube feedings and the dietitians will manage. Qualifiers: Protein-calorie malnutrition severity: severe Qualified Code(s): E43 - Unspecified severe protein-calorie malnutrition (2) Trismus Current Visit: Yes Status: Acute Assessment and plan: Patient is still unable to fully open mouth. Unclear etiology. ENT believe this could be severe arthritis vs lock jaw, and no evidence of infection, no ENT source. Evaluated by neurology, unfortunately no inpatient recommendations at this time, possible Botox injections to temporalis and masseter muscles bilaterally. CT suggested some degeneration of the right head of the condyle Patient has been nothing by mouth since admission, cannot effectively swallow at this time. Feeding tube may be an option at this time, but patient and POA have declined in the past. Barium swallow had to be canceled yesterday due to patients not alert enough to perform study. Discuss with POA if she would like to reattempt study state. Plan of care discussed with patient's power of women's activities adviser, Peyton. Palliative care consult ordered poor prognosis overall (3) Aspiration pneumonia due to gastric secretions Current Visit: Yes Status: Acute Assessment and plan: [facility] CT of the chest which demonstrated extensive aspiration pneumonia in the right middle and lower lobes, without pneumonia present in the left lung. afebrile SPO2 98% room air Continue Unasyn- day 6 O2 requirements at baseline Qualifiers: Laterality: right Lung location: middle lobe of lung Qualified Code(s): J69.0 - Pneumonitis due to inhalation of food and vomit (4) Progressive supranuclear palsy Current Visit: Yes Status: Chronic Assessment and plan: Patient is unable to communicate. Per VALENTÍN Todd she is not been able to talk for about a year now. She uses thumbs up and thumbs down signs to communicate however during this hospital admission she has been able to make the same signals. Neurology consulted, no treatment while inpatient. They believe that this is a progression of disease and supportive care is recommended. She may benefit from outpatient Botox per neurology PT/OT scheduled most likely will have to discharge to SNF (5) Goals of care, counseling/discussion Current Visit: Yes Status: Acute Assessment and plan: plan to discuss with POA today at 4:30 PM the goals of care for the duration of the treatment. Very poor prognosis with current disease process PSP that is fatal. Last night VALENTÍN Todd had decided to change patient's current status to DNR CCA DNI. However she still wanted a peg tube placed for feeding despite aspiration risk and the patient would most likely not benefit from placement but would likely have more harm than benefit. (6) DVT prophylaxis Current Visit: Yes Status: Acute Assessment and plan: Heparin 5000 units BID - Subjective Interval history: Laying in bed and can only open her eyes and squeeze hand. Her eyes have improved in edema. - Constitutional Vitals: Temp Pulse Resp BP Pulse Ox 97.3 F L 66 16 131/80 95 09/01/17 05:58 09/01/17 05:58 09/01/17 05:58 09/01/17 05:58 09/01/17 05:58 General appearance: Present: cachectic, A&O X 1 (nonverbal at baseline, not very communicative). Absent: answers questions appropriately Internal Medicine: Result - Labs CBC & Chem 7: 01/31/18 03:02 09/01/17 03:02 Labs: Short CBC 09/01/17 Range/Units 03:02 WBC 3.8 L (4.3-11.1) K/mcL Hgb 9.0 L (11.5-15.4) g/dL Hct 28.0 L (35.3-44.9) % Plt Count 183 (140-400) K/mcL [facility] 09/01/17 03:02 Sodium 143 Potassium 3.3 L Chloride 112 H Carbon Dioxide 25 BUN 17 Creatinine 0.55 L Glucose 64 L Calcium 7.7 L - Impressions Impressions Videofluoroscopic Swallow 08/30/17 00:01 IMPRESSION: Aborted study. Please see separate speech pathology report for full discussion of findings and recommendations. D/ / 08/30/2017 15:48:41 Bill Be MD / jitendra Interpreting Provider: Bill Be MD Consult Discharge Plan - Plan Referrals: NONE,PCP [Primary Care Provider] - <Adrian Mccartney H - Last Filed: 09/01/17 14:10> Date of Encounter: 09/01/17 - Constitutional Vitals: Temp Pulse Resp BP Pulse Ox 97.6 F 70 15 142/85 95 09/01/17 12:19 09/01/17 12:19 09/01/17 12:19 09/01/17 12:19 09/01/17 05:58 Internal Medicine: Result - Labs CBC & Chem 7: 09/01/17 03:02 09/01/17 03:02 Labs: Short CBC 09/01/17 Range/Units 03:02 WBC 3.8 L (4.3-11.1) K/mcL Hgb 9.0 L (11.5-15.4) g/dL Hct 28.0 L (35.3-44.9) % Plt Count 183 (140-400) K/mcL [facility] 09/01/17 03:02 Sodium 143 Potassium 3.3 L Chloride 112 H Carbon Dioxide 25 BUN 17 Creatinine 0.55 L Glucose 64 L Calcium 7.7 L - Attending Attestation IR did not place PEG tube. POA to decide on options I examined this patient and my medical decision-making was reviewed with the Resident Physician. I agree with the documented findings, disposition and treatment plan as described except to the extent set forth below.
--- NOTE | 2017-09-01 11:49 | Event Note ---
Date of Encounter: 09/01/17 Time of Encounter: 11:45 Patient's POA called me last pm - she had already spoken to Dr. Ngo and code status was changed to DNR/DNI. Peyton told me over telephone that patient conveyed to her she does desire a PEG tube and Peyton wants this to be done. Discussed that this would not prevent aspiration, and she is likely to still aspirate her secretions. Discussed hospice care, and Peyton refuses this at this time. States she will honor the patients wish and have the feeding tube placed. D/W Dr. Brar and Dr. Ngo this am. Peyton plans on being at hospital [facility] when she is off.
[2017-09-01] MEDS ORDERED: *HR* Dextrose 50 % in Water (Syg) 50 ML SYRINGE IVP ONE ×2 (12:09→12:18)
[2017-09-01] MEDS ORDERED: Dextrose Gel 15 GM/37.5 ML TUBE PO PRN ×2 (12:37)
[2017-09-01] MEDS ORDERED: D5% in Water 1,000 ML IVC PRN (12:37)
[2017-09-01] MEDS ORDERED: *HR* Dextrose 50 % in Water (Syg) 50 ML SYRINGE IVP PRN (12:37)
[2017-09-01] MEDS: Ketorolac 15 MG/ML VIAL IVP PRN ×2 (15:13→21:27)
[2017-09-01] MEDS: D5% in Water 1,000 ML IVC SCH (18:35)
[2017-09-02] MEDS: Ampicillin/Sulbactam 3,000 MG in 0.9 % Sodium Chloride Mini Bag 100 ML IVPB SCH ×5 (00:26→23:37)
[2017-09-02] MEDS: Ciprofloxacin OPTH Soln 2.5 ML BOTTLE BOTH EYES SCH ×7 (00:27→23:37)
[2017-09-02 03:51] LABS: Hematocrit 29.5 % (35.3-44.9); Hemoglobin 9.5 g/dL (11.5-15.4); Mean Corpuscular HGB Conc 32.2 g/dL (31.6-35.5); Mean Corpuscular Volume 83.8 fL (83.0-100.0); Mean Platelet Volume 8.5 fL (9.4-12.4); Platelet Count 150 K/mcL (140-400); Red Blood Count 3.52 M/mcL (3.82-4.97); Red Cell Distribution Width 15.5 % (11.5-14.5)
[2017-09-02 04:13] LABS: BUN/Creatinine Ratio 34 (6-26); Blood Urea Nitrogen 15 mg/dL (8-23); Calcium 7.8 mg/dL (8.6-10.3); Carbon Dioxide 24 mEq/L (23-29); Chloride 110 mEq/L (98-107); Glucose 98 mg/dL (70-105); Osmolality,Calculated 293 (280-300); Potassium 3.1 mEq/L (3.5-5.1); Sodium 141 mEq/L (136-145); eGFR For African Americans > 60 (> 60); eGFR For Non-African Americans > 60 (> 60)
[2017-09-02] MEDS: *HR* Heparin 5,000 UNIT/ML VIAL SQ SCH ×2 (04:50→17:20)
[2017-09-02] MEDS: D5% in Water 1,000 ML IVC SCH ×2 (04:51→17:20)
[2017-09-02] MEDS ORDERED: Potassium Chloride 40 MEQ, Lidocaine 1% 2 ML in D5% in Water 500 ML IVPB ONE (07:34)
[2017-09-02] MEDS: Lacri-Lube 3.5 GM TUBE BOTH EYES SCH ×2 (07:46→20:27)
--- NOTE | 2017-09-02 08:14 | Internal Med Progress Note ---
Addendum entered and electronically signed by Danyell Ngo DO 09/02/17 08:53: Gen.: Vitals noted. No acute distress. HEENT: oropharynx clear, Normocephalic, atraumatic Neck: Supple. No adenopathy. Cardiac: RRR, no murmur, +S1/S2 Pulmonary: decreased breathe sounds bilaterally, no wheezes, rales or rhonchi, equal chest expansion Abdomen: soft, nontender, Bowel sounds noted, no guarding MSK: ROM intact, no joint swelling noted Extremities: no BLE edema, nontender calf, no cyanosis or clubbing Neuro: hand minimally moves Original Note: <Danyell Ngo - Last Filed: 09/02/17 08:49> Date of Encounter: 09/02/17 Time of Encounter: 08:10 - Assessment and plan (1) Protein calorie malnutrition Current Visit: Yes Status: Chronic Assessment and plan: VALENTÍN Todd wants to go forth with Nasogatric tube feedings. She will be in around 1pm according to her nurse. VALENTÍN Todd stated that she would like the patient to have a peg tube placed despite risk of aspiration and against the recommendations of palliative care, neurology, and primary hospitalist team. Interventional radiology was consulted to place the peg tube and after their evaluation they say that she is not a sedation candidate because for condition. Swallow study cannot be done due to patient cannot initiate swallowing. They believe place a gastrostomy tube in this patient will cause pain and suffering without benefit. She signed waiver to feed the patient herself. Speech recommend NPO At this time we will have a DOP OV placed for tube feedings when Peyton arrives. dietitians will manage feedings Qualifiers: Protein-calorie malnutrition severity: severe Qualified Code(s): E43 - Unspecified severe protein-calorie malnutrition (2) Trismus Current Visit: Yes Status: Acute Assessment and plan: Patient is still unable to fully open mouth. Unclear etiology. ENT believe this could be severe arthritis vs lock jaw, and no evidence of infection, no ENT source. Evaluated by neurology, unfortunately no inpatient recommendations at this time, possible Botox injections to temporalis and masseter muscles bilaterally. CT suggested some degeneration of the right head of the condyle Patient has been nothing by mouth since admission, cannot effectively swallow at this time. Speech recommends the patient to be NPO Plan of care discussed with patient's power of commercial real estate attorney, Peyton. Palliative care consult ordered poor prognosis overall (3) Aspiration pneumonia due to gastric secretions Current Visit: Yes Status: Acute Assessment and plan: [facility] CT of the chest which demonstrated extensive aspiration pneumonia in the right middle and lower lobes, without pneumonia present in the left lung. afebrile SPO2 98% room air Continue Unasyn- day 7 O2 requirements at baseline Qualifiers: Laterality: right Lung location: middle lobe of lung Qualified Code(s): J69.0 - Pneumonitis due to inhalation of food and vomit (4) Progressive supranuclear palsy Current Visit: Yes Status: Chronic Assessment and plan: Patient is unable to communicate. Per VALENTÍN Todd she is not been able to talk for about a year now. She uses thumbs up and thumbs down signs to communicate however during this hospital admission she has been able to make the same signals. Neurology consulted, no treatment while inpatient. They believe that this is a progression of disease and supportive care is recommended. She may benefit from outpatient Botox per neurology PT/OT scheduled most likely will have to discharge to SNF (5) Goals of care, counseling/discussion Current Visit: Yes Status: Acute Assessment and plan: Very poor prognosis with current disease process PSP that is fatal. VALENTÍN Todd had decided to change patient's current status to DNR CCA DNI. However she still wants a nasogastric feeding tube placed for feeding despite aspiration risk and the patient would most likely not benefit from placement but would likely have more harm than benefit. Palliative care has seen the patient and VALENTÍN, they do not want hospice. (6) DVT prophylaxis Current Visit: Yes Status: Acute Assessment and plan: Heparin 5000 units BID - Subjective Interval history: Laying in bed and can only open her eyes. A former caregiver is at bedside. - Constitutional Vitals: Temp Pulse Resp BP Pulse Ox 97.7 F 56 16 130/82 99 09/02/17 07:02 09/02/17 07:02 09/02/17 07:02 09/02/17 07:02 09/02/17 07:02 General appearance: Present: cachectic, A&O X 1 (nonverbal at baseline, not very communicative). Absent: answers questions appropriately Internal Medicine: Result - Labs CBC & Chem 7: 09/02/17 03:31 09/02/17 03:31 Labs: Short CBC 09/02/17 Range/Units 03:31 WBC 3.8 L (4.3-11.1) K/mcL Hgb 9.5 L (11.5-15.4) g/dL Hct 29.5 L (35.3-44.9) % Plt Count 150 (140-400) K/mcL [facility] 09/02/17 03:31 Sodium 141 Potassium 3.1 L Chloride 110 H Carbon Dioxide 24 BUN 15 Creatinine 0.44 L Glucose 98 Calcium 7.8 L Consult Discharge Plan - Plan Referrals: NONE,PCP [Primary Care Provider] - <Adrian Mccartney H - Last Filed: 09/02/17 10:36> Date of Encounter: 09/02/17 - Constitutional Vitals: Temp Pulse Resp BP Pulse Ox 97.7 F 56 16 130/82 99 09/02/17 07:02 09/02/17 07:02 09/02/17 07:02 09/02/17 07:02 09/02/17 07:02 Internal Medicine: Result - Labs CBC & Chem 7: 09/02/17 03:31 09/02/17 03:31 Labs: Short CBC 09/02/17 Range/Units 03:31 WBC 3.8 L (4.3-11.1) K/mcL Hgb 9.5 L (11.5-15.4) g/dL Hct 29.5 L (35.3-44.9) % Plt Count 150 (140-400) K/mcL [facility] 09/02/17 03:31 Sodium 141 Potassium 3.1 L Chloride 110 H Carbon Dioxide 24 BUN 15 Creatinine 0.44 L Glucose 98 Calcium 7.8 L - Attending Attestation will discuss options with POA later today I examined this patient and my medical decision-making was reviewed with the Resident Physician. I agree with the documented findings, disposition and treatment plan as described except to the extent set forth below.
--- NOTE | 2017-09-02 14:27 | Palliative Progress Note ---
Date of Encounter: 09/02/17 Time of Encounter: 14:25 - Assessment and plan (1) Goals of care, counseling/discussion Current Visit: Yes Status: Acute Assessment and plan: Peyton - pt friend and POA currently present. States they have been best friends for 31 years, and remained so after their husbands passed. She never had any children, and patient's stepchildren are estranged from her. Peyton has power of employment attorney over financial/healthcare, and this is present now on her record. This POA also states that pt would desire Peyton as her guardian if needed. Pt clinical status has been explained to Peyton. She is insisting that pt desires a temporary feeding tube for as long as possible. They understand it is short term. She is convinced that pt may become stronger with a few weeks of nutrition, and understands that she can/may still aspirate. Tyree Squries present and meeting as well. peyton desires placement at [facility]. Re-addressed code status which remains as DNR/DNI. Completed state form and copies provided to POA. Gave Peyton our contact information if she desires to discuss anything else. Palliative will sign off. Please reconsult if needed. (2) Dysphagia Current Visit: Yes Status: Acute Assessment and plan: Dobhoff tube will be placed and feeding initiated. Risk/benefit has been thoroughly explained to POA. Qualifiers: Dysphagia type: unspecified Qualified Code(s): R13.10 - Dysphagia, unspecified (3) Generalized pain Current Visit: Yes Status: Acute (4) Progressive supranuclear palsy Current Visit: Yes Status: Chronic (5) Aspiration pneumonia due to gastric secretions Current Visit: Yes Status: Acute Qualifiers: Laterality: right Lung location: middle lobe of lung Qualified Code(s): J69.0 - Pneumonitis due to inhalation of food and vomit - Time Spent With Patient Total time spent is greater than 50% in coordination of care (as documented) at patient's floor/unit and/or counseling patient: 25 - 35 minutes - Subjective Interval history: Patient awake with eyes open. Will follow command to squeeze hand and wiggle toes, but I couldn't get her to squeeze today for answer to questions. Caregiver and POA at bedside. She appears comfortable. - Constitutional Vitals: Abnormal lab results WBC 3.8 K/mcL (4.3-11.1) L 09/02/17 03:31 RBC 3.52 M/mcL (3.82-4.97) L 09/02/17 03:31 Hgb 9.5 g/dL (11.5-15.4) L 09/02/17 03:31 Hct 29.5 % (35.3-44.9) L 09/02/17 03:31 MCH 27.0 pg (28.0-33.3) L 09/02/17 03:31 RDW 15.5 % (11.5-14.5) H 09/02/17 03:31 MPV 8.5 fL (9.4-12.4) L 09/02/17 03:31 Band Neutrophils % 10.0 % (0-4) H 08/28/17 04:47 Nucleated RBCs/100 WBC 1.3 /100 WBC (0) H 08/29/17 04:22 Potassium 3.1 mEq/L (3.5-5.1) L 09/02/17 03:31 Chloride 110 mEq/L (98-107) H 09/02/17 03:31 Creatinine 0.44 mg/dL (0.60-1.20) L 09/02/17 03:31 BUN/Creatinine Ratio 34 (6-26) H 09/02/17 03:31 POC Glucose 209 (58-89) H 09/02/17 12:04 Calcium 7.8 mg/dL (8.6-10.3) L 09/02/17 03:31 General appearance: Present: no acute distress - Respiratory Respiratory exam: Present: decreased breath sounds, CTAB Additional comments: Shallow inspiratory effort - Cardiovascular Cardiovascular exam: Present: +S1, +S2 - GI/Abdominal GI/Abdominal exam: Present: normal bowel sounds, soft - Extremities Exam Extremities exam: Present: normal capillary refill, normal inspection - Neurological Exam Neurological exam: Present: alert (Nonverbal, left sided weakness, does squeeze with right hand and wiggles right toes on command) - Skin Skin exam: Present: dry, pallor, warm Palliative Quality Palliative Quality: Screen for Code Status: NA (POA not present, pt unable to communicate), Screen for Goals of Care: NA, Screen for Pain: Yes, If Pain Regimen Started, Initiate Bowel Regimen: NA, Screen for Nausea/Vomitting: NA Code Status: 08/27/17 03:22 Resuscitation Status: Active [RES] Routine Comment: Resuscitation Status: Full Code 08/31/17 18:01 CODE [Resuscitation Status: Active] [RES] Routine Comment: Resuscitation Status: [id number] - Labs CBC & Chem 7: 09/02/17 03:31 09/02/17 03:31 Labs: Laboratory Results - last 24 hr 09/01/17 09/02/17 09/02/17 12:05 03:31 03:31 WBC 3.8 L RBC 3.52 L Hgb 9.5 L Hct 29.5 L MCV 83.8 MCH 27.0 L MCHC 32.2 RDW 15.5 H Plt Count 150 MPV 8.5 L Sodium 141 Potassium 3.1 L Chloride 110 H Carbon Dioxide 24 BUN 15 Creatinine 0.44 L Est GFR ( Amer) > 60 Est GFR (Non-Af Amer) > 60 BUN/Creatinine Ratio 34 H Glucose 98 POC Glucose 73 Calculated Osmolality 293 Calcium 7.8 L 09/02/17 09/02/17 07:18 12:04 WBC RBC Hgb Hct MCV MCH MCHC RDW Plt Count MPV Sodium Potassium Chloride Carbon Dioxide BUN Creatinine Est GFR ( Amer) Est GFR (Non-Af Amer) BUN/Creatinine Ratio Glucose POC Glucose 79 209 H Calculated Osmolality Calcium Consult Discharge Plan - Plan Referrals: NONE,PCP [Primary Care Provider] -
[2017-09-02] MEDS: Ketorolac 15 MG/ML VIAL IVP PRN ×2 (15:37→22:19)
[2017-09-03] MEDS: Ciprofloxacin OPTH Soln 2.5 ML BOTTLE BOTH EYES SCH ×6 (04:30→23:58)
[2017-09-03] MEDS: Ampicillin/Sulbactam 3,000 MG in 0.9 % Sodium Chloride Mini Bag 100 ML IVPB SCH ×4 (05:40→23:55)
[2017-09-03] MEDS: *HR* Heparin 5,000 UNIT/ML VIAL SQ SCH ×2 (05:40→17:50)
[2017-09-03 07:44] LABS: Basophils % 0.4 %; Eosinophils # 0.1 K/mcL (0.0-0.6); Eosinophils % 1.5 %; Hematocrit 30.4 % (35.3-44.9); Hemoglobin 10.1 g/dL (11.5-15.4); Immature Granulocytes % 2.6 % (0-4); Lymphocytes # 1.4 K/mcL (0.6-4.6); Mean Corpuscular HGB Conc 33.2 g/dL (31.6-35.5); Mean Corpuscular Hemoglobin 26.8 pg (28.0-33.3); Mean Corpuscular Volume 80.6 fL (83.0-100.0); Mean Platelet Volume 9.5 fL (9.4-12.4); Monocytes # 0.3 K/mcL (0.0-1.3); Monocytes % 4.9 %; Platelet Count 152 K/mcL (140-400); Red Blood Count 3.77 M/mcL (3.82-4.97); Red Cell Distribution Width 15.6 % (11.5-14.5); Segmented Neutrophils % 64.6 %
[2017-09-03 08:15] LABS: BUN/Creatinine Ratio 31 (6-26); Blood Urea Nitrogen 11 mg/dL (8-23); Calcium 7.7 mg/dL (8.6-10.3); Carbon Dioxide 22 mEq/L (23-29); Chloride 104 mEq/L (98-107); Glucose 92 mg/dL (70-105); Osmolality,Calculated 273 (280-300); Potassium 4.2 mEq/L (3.5-5.1); Sodium 132 mEq/L (136-145); eGFR For African Americans > 60 (> 60); eGFR For Non-African Americans > 60 (> 60)
--- NOTE | 2017-09-03 08:30 | Internal Med Progress Note ---
<Danyell Ngo - Last Filed: 09/03/17 08:28> Date of Encounter: 09/03/17 Time of Encounter: 08:28 - Assessment and plan (1) Protein calorie malnutrition Current Visit: Yes Status: Chronic Assessment and plan: GALENBurt Todd wants to go forth with Nasogatric tube feedings. VALENTÍN Todd stated that she would like the patient to have a peg tube placed despite risk of aspiration and against the recommendations of palliative care, neurology, and primary hospitalist team. Interventional radiology was consulted to place the peg tube and after their evaluation they say that she is not a sedation candidate because for condition. Swallow study cannot be done due to patient cannot initiate swallowing. They believe place a gastrostomy tube in this patient will cause pain and suffering without benefit. She signed waiver to feed the patient herself. Speech recommend NPO NG tube had to be removed due to incorrect placement after KUB imaging. Interventional radiology has been consulted to place NG tube under fluroscopy. dietitians will manage feedings Qualifiers: Protein-calorie malnutrition severity: severe Qualified Code(s): E43 - Unspecified severe protein-calorie malnutrition (2) Trismus Current Visit: Yes Status: Acute Assessment and plan: Patient is still unable to fully open mouth. Unclear etiology. ENT believe this could be severe arthritis vs lock jaw, and no evidence of infection, no ENT source. Evaluated by neurology, unfortunately no inpatient recommendations at this time, possible Botox injections to temporalis and masseter muscles bilaterally. CT suggested some degeneration of the right head of the condyle Patient has been nothing by mouth since admission, cannot effectively swallow at this time. Speech recommends the patient to be NPO Plan of care discussed with patient's power of trial attorney, Peyton. Palliative care consult ordered poor prognosis overall (3) Aspiration pneumonia due to gastric secretions Current Visit: Yes Status: Acute Assessment and plan: [facility] CT of the chest which demonstrated extensive aspiration pneumonia in the right middle and lower lobes, without pneumonia present in the left lung. afebrile SPO2 98% room air Continue Unasyn- day 8 O2 requirements at baseline Qualifiers: Laterality: right Lung location: middle lobe of lung Qualified Code(s): J69.0 - Pneumonitis due to inhalation of food and vomit (4) Progressive supranuclear palsy Current Visit: Yes Status: Chronic Assessment and plan: Patient is unable to communicate. Per VALENTÍN Todd she is not been able to talk for about a year now. She uses thumbs up and thumbs down signs to communicate however during this hospital admission she has been able to make the same signals. Neurology consulted, no treatment while inpatient. They believe that this is a progression of disease and supportive care is recommended. She may benefit from outpatient Botox per neurology PT/OT scheduled discharge to [facility] (5) Goals of care, counseling/discussion Current Visit: Yes Status: Acute Assessment and plan: Very poor prognosis with current disease process PSP that is fatal. VALENTÍN Todd had decided to change patient's current status to DNR CCA DNI. However she still wants a nasogastric feeding tube placed for feeding despite aspiration risk and the patient would most likely not benefit from placement but would likely have more harm than benefit. Palliative care has seen the patient and VALENTÍN, they do not want hospice. (6) DVT prophylaxis Current Visit: Yes Status: Acute Assessment and plan: Heparin 5000 units BID - Subjective Interval history: Laying in bed and can only open her eyes and no acute distress. - Constitutional Vitals: Temp Pulse Resp BP Pulse Ox 98.2 F 53 16 100/64 97 09/03/17 06:31 09/03/17 06:31 09/03/17 06:31 09/03/17 06:31 09/03/17 06:31 General appearance: Present: cachectic, A&O X 1 (nonverbal at baseline, not very communicative). Absent: answers questions appropriately Exam: Gen.: Vitals noted. No acute distress. HEENT: oropharynx clear, Normocephalic, atraumatic Neck: Supple. No adenopathy. Cardiac: RRR, no murmur, +S1/S2 Pulmonary: decreased breath sounds bilaterally, no wheezes, rales or rhonchi, equal chest expansion Abdomen: soft, nontender, Bowel sounds noted, no guarding Extremities: no BLE edema, nontender calf, no cyanosis or clubbing Neuro: A&Ox0, can only move right hand minimally Internal Medicine: Result - Labs CBC & Chem 7: 09/02/17 03:31 09/03/17 07:21 Labs: BMP 09/03/17 07:21 Sodium 132 L Potassium 4.2 Chloride 104 Carbon Dioxide 22 L BUN 11 Creatinine 0.36 L Glucose 92 Calcium 7.7 L - Impressions Impressions KUB X-Ray 09/02/17 15:12 IMPRESSION: Feeding tube coiled overlying the inferior aspect of the chest medially possibly within the hiatal hernia. The findings were sent to the Radiology Results Communication Center at 3:41 pm on 09/02/2017to be communicated to a licensed caregiver. D/ / 09/02/2017 15:58:52 Kai Rolle MD / home Interpreting Provider: Kai Rolle MD Consult Discharge Plan - Plan Referrals: NONE,PCP [Primary Care Provider] - <Adrian Mccartney - Last Filed: 09/03/17 14:26> Date of Encounter: 09/03/17 - Constitutional Vitals: Temp Pulse Resp BP Pulse Ox 97.0 F L 67 20 107/85 97 09/03/17 10:11 09/03/17 10:11 09/03/17 10:11 09/03/17 10:11 09/03/17 10:11 Internal Medicine: Result - Labs CBC & Chem 7: 09/03/17 07:21 09/03/17 07:21 Labs: Short CBC 09/03/17 Range/Units 07:21 WBC 5.3 (4.3-11.1) K/mcL Hgb 10.1 L (11.5-15.4) g/dL Hct 30.4 L (35.3-44.9) % Plt Count 152 (140-400) K/mcL Neutrophils # 3.4 (1.6-8.9) K/mcL BMP 09/03/17 07:21 Sodium 132 L Potassium 4.2 Chloride 104 Carbon Dioxide 22 L BUN 11 Creatinine 0.36 L Glucose 92 Calcium 7.7 L - ABG Interpretation ABG results: PT/INR, D-dimer PT 11.8 Seconds (9.4-12.1) 09/03/17 12:46 - Impressions Impressions KUB X-Ray 09/02/17 15:12 IMPRESSION: Feeding tube coiled overlying the inferior aspect of the chest medially possibly within the hiatal hernia. The findings were sent to the Radiology Results Communication Center at 3:41 pm on 09/02/2017to be communicated to a licensed caregiver. D/ / 09/02/2017 15:58:52 Kai Rolle MD / home Interpreting Provider: Kai Rolle MD Fluoroscopy 09/03/17 08:34 IMPRESSION: An attempt of placing a nasogastric tube failed due to the patient's inability to cooperate as well as the patient's general condition. The patient appeared to suffer during this procedure and therefore the procedure was stopped. D/ / 09/03/2017 11:34:10 Brenda Irene MD / [email or web address] Interpreting Provider: Brenda Irene MD - Attending Attestation Poor prognosis long-term I examined this patient and my medical decision-making was reviewed with the Resident Physician. I agree with the documented findings, disposition and treatment plan as described except to the extent set forth below.
[2017-09-03] MEDS: Lacri-Lube 3.5 GM TUBE BOTH EYES SCH ×2 (08:50→20:30)
[2017-09-03] MEDS: D5% in Water 1,000 ML IVC SCH (08:52)
[2017-09-03 08:53] LABS: Neutrophils # 3.4 K/mcL (1.6-8.9)
--- NOTE | 2017-09-03 11:35 | IR Progress Note ---
Vital Signs: Vital Signs/O2 Sat, Most Current Temp Pulse Resp BP Pulse Ox 97.0 F L 67 20 107/85 97 09/03/17 10:11 09/03/17 10:11 09/03/17 10:11 09/03/17 10:11 09/03/17 10:11 Recent Labs: Lab Results 09/03/17 09/03/17 09/02/17 07:21 07:21 03:31 WBC 5.3 RBC 3.77 L Hgb 10.1 L Hct 30.4 L MCV 80.6 L MCH 26.8 L MCHC 33.2 RDW 15.6 H Plt Count 152 MPV 9.5 Neutrophils # 3.4 Lymphocytes # 1.4 Monocytes # 0.3 Eosinophils # 0.1 Basophils # 0.0 Sodium 132 L 141 Potassium 4.2 3.1 L Chloride 104 110 H Carbon Dioxide 22 L 24 BUN 11 15 Creatinine 0.36 L 0.44 L Est GFR ( Amer) > 60 > 60 Est GFR (Non-Af Amer) > 60 > 60 BUN/Creatinine Ratio 31 H 34 H Glucose 92 98 Calcium 7.7 L 7.8 L 09/02/17 09/01/17 09/01/17 03:31 03:02 03:02 WBC 3.8 L 3.8 L RBC 3.52 L 3.35 L Hgb 9.5 L 9.0 L Hct 29.5 L 28.0 L MCV 83.8 83.6 MCH 27.0 L 26.9 L MCHC 32.2 32.1 RDW 15.5 H 15.4 H Plt Count 150 183 MPV 8.5 L 8.5 L Neutrophils # Lymphocytes # Monocytes # Eosinophils # Basophils # Sodium 143 Potassium 3.3 L Chloride 112 H Carbon Dioxide 25 BUN 17 Creatinine 0.55 L Est GFR ( Amer) > 60 Est GFR (Non-Af Amer) > 60 BUN/Creatinine Ratio 31 H Glucose 64 L Calcium 7.7 L Assessment and Plan Attempted at placing Dobhoff feeding tube today. The patient could not cooperate and was clearly suffering during this procedure that was unsuccessful. In my opinion it is inhumane and cruel to attempt multiple procedures on this patient with terrible medical prognosis. These procedures cause unnecessary suffering.
[2017-09-03] MEDS: Ketorolac 15 MG/ML VIAL IVP PRN ×2 (11:36→17:52)
[2017-09-03 13:00] LABS: INR 1.1; Prothrombin Time 11.8 Seconds (9.4-12.1)
[2017-09-03] MEDS ORDERED: D10% in Water 500 ML IVC PRN (13:46)
[2017-09-03] MEDS ORDERED: Lidocaine -MPF 1% 2 ML VIAL INFILT ONE (15:16)
[2017-09-03] MEDS ORDERED: Clinimix E 5%-15% SOLUTION 2,000 ML with MVI, adult with vitamin K 10 ML IVC SCH (17:00)
[2017-09-04] MEDS: Ciprofloxacin OPTH Soln 2.5 ML BOTTLE BOTH EYES SCH ×5 (05:05→20:37)
[2017-09-04] MEDS: *HR* Heparin 5,000 UNIT/ML VIAL SQ SCH ×2 (05:05→16:46)
[2017-09-04 05:31] LABS: BUN/Creatinine Ratio 29 (6-26); Blood Urea Nitrogen 10 mg/dL (8-23); Calcium 7.6 mg/dL (8.6-10.3); Carbon Dioxide 27 mEq/L (23-29); Chloride 105 mEq/L (98-107); Glucose 111 mg/dL (70-105); Magnesium 2.1 mg/dL (1.6-2.6); Osmolality,Calculated 282 (280-300); Phosphorous 2.5 mg/dL (2.7-4.5); Potassium 3.2 mEq/L (3.5-5.1); Sodium 136 mEq/L (136-145); Triglycerides 183 mg/dL (< 150); eGFR For African Americans > 60 (> 60); eGFR For Non-African Americans > 60 (> 60)
[2017-09-04] MEDS: Ampicillin/Sulbactam 3,000 MG in 0.9 % Sodium Chloride Mini Bag 100 ML IVPB SCH (06:31)
[2017-09-04] MEDS: Lacri-Lube 3.5 GM TUBE BOTH EYES SCH ×2 (07:52→20:37)
--- NOTE | 2017-09-04 12:18 | Internal Med Progress Note ---
Date of Encounter: 09/04/17 Time of Encounter: 12:13 - Assessment and plan (1) Protein calorie malnutrition Current Visit: Yes Status: Chronic Assessment and plan: VALENTÍN Todd preferred to go forth with Nasogatric tube feedings. VALENTÍN Todd stated that she would like the patient to have a peg tube placed despite risk of aspiration and against the recommendations of palliative care, neurology, and primary hospitalist team. Interventional radiology was consulted to place the peg tube and after their evaluation they say that she is not a sedation candidate because for condition. Swallow study cannot be done due to patient cannot initiate swallowing. They believe place a gastrostomy tube in this patient will cause pain and suffering without benefit. She signed waiver to feed the patient herself. Speech recommend NPO NG tube had to be removed due to incorrect placement after KUB imaging. Interventional radiology has been consulted to place NG tube under fluroscopy, NG tube could not be placed either. TPN was started after placing a PICC line Qualifiers: Protein-calorie malnutrition severity: severe Qualified Code(s): E43 - Unspecified severe protein-calorie malnutrition (2) Trismus Current Visit: Yes Status: Acute Assessment and plan: Patient is still unable to fully open mouth. Unclear etiology. ENT believe this could be severe arthritis vs lock jaw, and no evidence of infection, no ENT source. Evaluated by neurology, unfortunately no inpatient recommendations at this time, possible Botox injections to temporalis and masseter muscles bilaterally. CT suggested some degeneration of the right head of the condyle Patient has been nothing by mouth since admission, cannot effectively swallow at this time. Speech recommends the patient to be NPO Plan of care discussed with patient's power of civil litigation attorney, Peyton. Palliative care consult ordered poor prognosis overall (3) Aspiration pneumonia due to gastric secretions Current Visit: Yes Status: Acute Assessment and plan: [facility] CT of the chest which demonstrated extensive aspiration pneumonia in the right middle and lower lobes, without pneumonia present in the left lung. Discontinue Unasyn- day 9 O2 requirements at baseline Qualifiers: Laterality: right Lung location: middle lobe of lung Qualified Code(s): J69.0 - Pneumonitis due to inhalation of food and vomit (4) Progressive supranuclear palsy Current Visit: Yes Status: Chronic Assessment and plan: Patient is unable to communicate. Per VALENTÍN Todd she is not been able to talk for about a year now. She uses thumbs up and thumbs down signs to communicate however during this hospital admission she has been able to make the same signals. Neurology consulted, no treatment while inpatient. They believe that this is a progression of disease and supportive care is recommended. She may benefit from outpatient Botox per neurology PT/OT scheduled discharge to [facility] when possible (5) Goals of care, counseling/discussion Current Visit: Yes Status: Acute Assessment and plan: Very poor prognosis with current disease process PSP that is fatal. VALENTÍN Todd had decided to change patient's current status to DNR CCA DNI. However she still wants a nasogastric feeding tube placed for feeding despite aspiration risk and the patient would most likely not benefit from placement but would likely have more harm than benefit. Palliative care has seen the patient and GALENBurt, they do not want hospice. (6) DVT prophylaxis Current Visit: Yes Status: Acute Assessment and plan: Heparin 5000 units BID Qualifiers: Protein-calorie malnutrition severity: severe Qualified Code(s): E43 - Unspecified severe protein-calorie malnutrition - Subjective Interval history: Nonverbal, unable to complete review of systems - Constitutional Vitals: Temp Pulse Resp BP Pulse Ox 97.3 F L 61 14 90/54 91 09/04/17 10:52 09/04/17 10:52 09/04/17 10:52 09/04/17 10:52 09/04/17 10:52 General appearance: Present: cachectic, A&O X 1 (nonverbal at baseline, not very communicative). Absent: answers questions appropriately Exam: Nonverbal - Head Head exam: Present: atraumatic, normocephalic - Eye Eye exam: Present: PERRL, conjuntiva pink, sclera anicteric Pupils: Present: PERRL - Neck Neck exam general surgery: Present: supple, trachea midline. Absent: lymphadenopathy - Respiratory Respiratory exam: Present: CTAB. Absent: accessory muscle use, rales, rhonchi, wheezes - Cardiovascular Cardiovascular exam: Present: RRR, +S1, +S2. Absent: diastolic murmur, gallop, rubs, systolic murmur - GI/Abdominal GI/Abdominal exam: Present: normal bowel sounds, soft, no peritoneal signs. Absent: distended, tenderness - Extremities Exam Extremities exam: Present: warm, radial pulses palpable and symmetrical. Absent : calf tenderness, cyanotic, pedal edema - Neurological Exam Neurological exam: Present: CN II-XII intact, no focal deficits. Absent: oriented X3, pronater drift, facial droop, speech deficit Additional comments: Generalized muscle atrophy, able to move partially on the right hand able to squeeze - Skin Skin exam: Present: dry, intact Internal Medicine: Result - Labs CBC & Chem 7: 09/03/17 07:21 09/04/17 04:54 Labs: BMP 09/04/17 04:54 Sodium 136 Potassium 3.2 L Chloride 105 Carbon Dioxide 27 BUN 10 Creatinine 0.35 L Glucose 111 H Calcium 7.6 L - ABG Interpretation ABG results: PT/INR, D-dimer PT 11.8 Seconds (9.4-12.1) 09/03/17 12:46 Consult Discharge Plan - Plan Referrals: NONE,PCP [Primary Care Provider] -
[2017-09-04] MEDS ORDERED: Clinimix E 5%-15% SOLUTION 2,000 ML with MVI, adult with vitamin K 10 ML IVC SCH (17:00)
[2017-09-04] MEDS: Ketorolac 15 MG/ML VIAL IVP PRN (18:21)
[2017-09-05] MEDS: Ciprofloxacin OPTH Soln 2.5 ML BOTTLE BOTH EYES SCH ×6 (02:41→20:13)
[2017-09-05 04:05] LABS: BUN/Creatinine Ratio 47 (6-26); Blood Urea Nitrogen 18 mg/dL (8-23); Calcium 7.7 mg/dL (8.6-10.3); Carbon Dioxide 27 mEq/L (23-29); Chloride 104 mEq/L (98-107); Glucose 87 mg/dL (70-105); Magnesium 2.1 mg/dL (1.6-2.6); Osmolality,Calculated 281 (280-300); Potassium 3.4 mEq/L (3.5-5.1); Sodium 135 mEq/L (136-145); eGFR For African Americans > 60 (> 60); eGFR For Non-African Americans > 60 (> 60)
[2017-09-05] MEDS: *HR* Heparin 5,000 UNIT/ML VIAL SQ SCH ×2 (05:14→16:47)
[2017-09-05] MEDS: Lacri-Lube 3.5 GM TUBE BOTH EYES SCH ×2 (08:57→20:13)
--- NOTE | 2017-09-05 10:55 | Internal Med Progress Note ---
Date of Encounter: 09/05/17 Time of Encounter: 10:55 - Assessment and plan (1) Protein calorie malnutrition Current Visit: Yes Status: Chronic Assessment and plan: VALENTÍN Todd preferred to go forth with Nasogatric tube feedings. VALENTÍN Todd stated that she would like the patient to have a peg tube placed despite risk of aspiration and against the recommendations of palliative care, neurology, and primary hospitalist team. Interventional radiology was consulted to place the peg tube and after their evaluation they say that she is not a sedation candidate because for condition. Swallow study cannot be done due to patient cannot initiate swallowing. They believe place a gastrostomy tube in this patient will cause pain and suffering without benefit. She signed waiver to feed the patient herself. Speech recommend NPO NG tube had to be removed due to incorrect placement after KUB imaging. Interventional radiology has been consulted to place NG tube under fluroscopy, NG tube could not be placed either. TPN was started after placing a PICC line Discharge planning after finding placement Qualifiers: Protein-calorie malnutrition severity: severe Qualified Code(s): E43 - Unspecified severe protein-calorie malnutrition (2) Trismus Current Visit: Yes Status: Acute Assessment and plan: Patient is still unable to fully open mouth. Unclear etiology. ENT believe this could be severe arthritis vs lock jaw, and no evidence of infection, no ENT source. Evaluated by neurology, unfortunately no inpatient recommendations at this time, possible Botox injections to temporalis and masseter muscles bilaterally. CT suggested some degeneration of the right head of the condyle Patient has been nothing by mouth since admission, cannot effectively swallow at this time. Speech recommends the patient to be NPO Plan of care discussed with patient's power of commercial litigation attorney, Peyton. Palliative care consult ordered poor prognosis overall (3) Aspiration pneumonia due to gastric secretions Current Visit: Yes Status: Acute Assessment and plan: [facility] CT of the chest which demonstrated extensive aspiration pneumonia in the right middle and lower lobes, without pneumonia present in the left lung. Discontinued Unasyn at day 9 O2 requirements at baseline Qualifiers: Laterality: right Lung location: middle lobe of lung Qualified Code(s): J69.0 - Pneumonitis due to inhalation of food and vomit (4) Progressive supranuclear palsy Current Visit: Yes Status: Chronic Assessment and plan: Patient is unable to communicate. Per VALENTÍN Todd she is not been able to talk for about a year now. She uses thumbs up and thumbs down signs to communicate however during this hospital admission she has been able to make the same signals. Neurology consulted, no treatment while inpatient. They believe that this is a progression of disease and supportive care is recommended. She may benefit from outpatient Botox per neurology PT/OT scheduled discharge to [facility] when possible (5) Goals of care, counseling/discussion Current Visit: Yes Status: Acute Assessment and plan: Very poor prognosis with current disease process PSP that is fatal. VALENTÍN Peyton had decided to change patient's current status to DNR CCA DNI. However she still wants a nasogastric feeding tube placed for feeding despite aspiration risk and the patient would most likely not benefit from placement but would likely have more harm than benefit. Palliative care has seen the patient and VALENTÍN, they do not want hospice. (6) hypokalemia Current Visit: Yes Status: Acute Assessment and plan: Replete as needed through TPN Qualifiers: Protein-calorie malnutrition severity: severe Qualified Code(s): E43 - Unspecified severe protein-calorie malnutrition - Subjective Interval history: Nonverbal, unable to complete review of systems - Constitutional Vitals: Temp Pulse Resp BP Pulse Ox 98.4 F 65 14 102/65 99 09/05/17 07:33 09/05/17 07:33 09/05/17 07:33 09/05/17 07:33 09/05/17 07:33 General appearance: Present: cachectic, A&O X 1 (nonverbal at baseline, not very communicative). Absent: answers questions appropriately Exam: Nonverbal - Head Head exam: Present: atraumatic, normocephalic - Eye Eye exam: Present: PERRL, conjuntiva pink, sclera anicteric Pupils: Present: PERRL - Neck Neck exam general surgery: Present: supple, trachea midline. Absent: lymphadenopathy - Respiratory Respiratory exam: Present: CTAB. Absent: accessory muscle use, rales, rhonchi, wheezes - Cardiovascular Cardiovascular exam: Present: RRR, +S1, +S2. Absent: diastolic murmur, gallop, rubs, systolic murmur - GI/Abdominal GI/Abdominal exam: Present: normal bowel sounds, soft, no peritoneal signs. Absent: distended, tenderness - Extremities Exam Extremities exam: Present: warm, radial pulses palpable and symmetrical. Absent : calf tenderness, cyanotic, pedal edema - Neurological Exam Neurological exam: Present: CN II-XII intact, no focal deficits. Absent: oriented X3, pronater drift, facial droop, speech deficit Additional comments: Generalized muscle atrophy, able to move partially on the right hand able to squeeze - Skin Skin exam: Present: dry, intact Internal Medicine: Result - Labs CBC & Chem 7: 09/03/17 07:21 09/05/17 03:35 Labs: BMP 09/05/17 03:35 Sodium 135 L Potassium 3.4 L Chloride 104 Carbon Dioxide 27 BUN 18 Creatinine 0.38 L Glucose 87 Calcium 7.7 L - ABG Interpretation ABG results: PT/INR, D-dimer PT 11.8 Seconds (9.4-12.1) 09/03/17 12:46 Consult Discharge Plan - Plan Referrals: NONE,PCP [Primary Care Provider] -
[2017-09-05] MEDS ORDERED: Clinimix E 5%-15% SOLUTION 2,000 ML with MVI, adult with vitamin K 10 ML IVC SCH (17:00)
[2017-09-05] MEDS ORDERED: Ketorolac 15 MG/ML VIAL IVP PRN (22:26)
[2017-09-06] MEDS: Ciprofloxacin OPTH Soln 2.5 ML BOTTLE BOTH EYES SCH ×4 (00:46→12:02)
[2017-09-06 04:21] LABS: BUN/Creatinine Ratio 48 (6-26); Blood Urea Nitrogen 19 mg/dL (8-23); Carbon Dioxide 27 mEq/L (23-29); Chloride 105 mEq/L (98-107); Glucose 92 mg/dL (70-105); Osmolality,Calculated 282 (280-300); Phosphorous 3.1 mg/dL (2.7-4.5); Potassium 3.6 mEq/L (3.5-5.1); Sodium 135 mEq/L (136-145); eGFR For African Americans > 60 (> 60); eGFR For Non-African Americans > 60 (> 60)
[2017-09-06] MEDS: *HR* Heparin 5,000 UNIT/ML VIAL SQ SCH (06:04)
[2017-09-06] MEDS: Lacri-Lube 3.5 GM TUBE BOTH EYES SCH (09:40)
--- NOTE | 2017-09-06 11:43 | Internal Med Progress Note ---
<Danyell Ngo - Last Filed: 09/06/17 11:41> Date of Encounter: 09/06/17 Time of Encounter: 10:00 - Assessment and plan (1) Goals of care, counseling/discussion Current Visit: Yes Status: Acute Assessment and plan: Very poor prognosis with current disease process PSP that is fatal. VALENTÍN Todd had decided to change patient's current status to DNR CCA DNI. However she still wants a nasogastric feeding tube placed for feeding despite aspiration risk and the patient would most likely not benefit from placement but would likely have more harm than benefit. Palliative care has seen the patient and POBurt, they do not want hospice. Social work will see which SNF will take TPN patient and will coordinate with Peyton on which one to send to. (2) Protein calorie malnutrition Current Visit: Yes Status: Chronic Assessment and plan: VALENTÍN Todd preferred to go forth with Nasogatric tube feedings. VALENTÍN Todd stated that she would like the patient to have a peg tube placed despite risk of aspiration and against the recommendations of palliative care, neurology, and primary hospitalist team. Interventional radiology was consulted to place the peg tube and after their evaluation they say that she is not a sedation candidate because for condition. Swallow study cannot be done due to patient cannot initiate swallowing. They believe place a gastrostomy tube in this patient will cause pain and suffering without benefit. She signed waiver to feed the patient herself. Speech recommend NPO NG tube had to be removed due to incorrect placement after KUB imaging. Interventional radiology has been consulted to place NG tube under fluroscopy, NG tube could not be placed either. TPN was started after placing a PICC line Discharge planning after finding placement Qualifiers: Protein-calorie malnutrition severity: severe Qualified Code(s): E43 - Unspecified severe protein-calorie malnutrition Qualifiers: Protein-calorie malnutrition severity: severe Qualified Code(s): E43 - Unspecified severe protein-calorie malnutrition (3) Trismus Current Visit: Yes Status: Acute Assessment and plan: Patient is still unable to fully open mouth. Unclear etiology. ENT believe this could be severe arthritis vs lock jaw, and no evidence of infection, no ENT source. Evaluated by neurology, unfortunately no inpatient recommendations at this time, possible Botox injections to temporalis and masseter muscles bilaterally. CT suggested some degeneration of the right head of the condyle Patient has been nothing by mouth since admission, cannot effectively swallow at this time. Speech recommends the patient to be NPO Plan of care discussed with patient's power of workers compensation defense attorney, Peyton. Palliative care consult ordered poor prognosis overall (4) Aspiration pneumonia due to gastric secretions Current Visit: Yes Status: Acute Assessment and plan: [facility] CT of the chest which demonstrated extensive aspiration pneumonia in the right middle and lower lobes, without pneumonia present in the left lung. afebrile SPO2 98% room air stop Unasyn- day 9 O2 requirements at baseline Qualifiers: Laterality: right Lung location: middle lobe of lung Qualified Code(s): J69.0 - Pneumonitis due to inhalation of food and vomit (5) Progressive supranuclear palsy Current Visit: Yes Status: Chronic Assessment and plan: Patient is unable to communicate. Per VALENTÍN Todd she is not been able to talk for about a year now. She uses thumbs up and thumbs down signs to communicate however during this hospital admission she has been able to make the same signals. Neurology consulted, no treatment while inpatient. They believe that this is a progression of disease and supportive care is recommended. She may benefit from outpatient Botox per neurology PT/OT scheduled discharge to SNF (6) Hypokalemia Current Visit: Yes Status: Acute Assessment and plan: continue to monitor and replete thru TPN (7) DVT prophylaxis Current Visit: Yes Status: Acute Assessment and plan: Heparin 5000 units BID - Subjective Interval history: Laying in bed and can open her eyes and move hand for thumbs up. no acute distress. - Constitutional Vitals: Temp Pulse Resp BP Pulse Ox 96.7 F L 61 12 95/73 100 09/06/17 08:01 09/06/17 08:01 09/06/17 08:01 09/06/17 08:01 09/06/17 08:01 General appearance: Present: cachectic, no acute distress. Absent: answers questions appropriately - Head Head exam: Present: atraumatic, normocephalic - Eye Eye exam: Present: normal appearance. Absent: conjunctival injection, nystagmus - Respiratory Respiratory exam: Present: CTAB. Absent: rales, rhonchi, wheezes - Cardiovascular Cardiovascular exam: Present: RRR, +S1, +S2 - GI/Abdominal GI/Abdominal exam: Present: normal bowel sounds, soft. Absent: firm, tenderness - Extremities Exam Extremities exam: Present: normal inspection. Absent: calf tenderness - Skin Skin exam: Present: dry, intact Internal Medicine: Result - Labs CBC & Chem 7: 09/03/17 07:21 09/06/17 03:34 Labs: BMP 09/06/17 03:34 Sodium 135 L Potassium 3.6 Chloride 105 Carbon Dioxide 27 BUN 19 Creatinine 0.40 L Glucose 92 Calcium 8.0 L - ABG Interpretation ABG results: PT/INR, D-dimer PT 11.8 Seconds (9.4-12.1) 09/03/17 12:46 Consult Discharge Plan - Plan Referrals: NONE,PCP [Primary Care Provider] - <Adrian Mccartney - Last Filed: 09/06/17 12:59> Date of Encounter: 09/06/17 - Assessment and plan (1) Protein calorie malnutrition Current Visit: Yes Status: Chronic Qualifiers: Protein-calorie malnutrition severity: severe Qualified Code(s): E43 - Unspecified severe protein-calorie malnutrition - Constitutional Vitals: Temp Pulse Resp BP Pulse Ox 97.5 F L 68 14 94/71 100 09/06/17 11:48 09/06/17 11:48 09/06/17 11:48 09/06/17 11:48 09/06/17 11:48 Internal Medicine: Result - Labs CBC & Chem 7: 09/03/17 07:21 09/06/17 03:34 Labs: BMP 09/06/17 03:34 Sodium 135 L Potassium 3.6 Chloride 105 Carbon Dioxide 27 BUN 19 Creatinine 0.40 L Glucose 92 Calcium 8.0 L - ABG Interpretation ABG results: PT/INR, D-dimer PT 11.8 Seconds (9.4-12.1) 09/03/17 12:46 - Attending Attestation Discharge planning, continue TPN I examined this patient and my medical decision-making was reviewed with the Resident Physician. I agree with the documented findings, disposition and treatment plan as described except to the extent set forth below.
[2017-09-06 11:51] VITALS: BP 94/71
--- NOTE | 2017-09-06 14:11 | Discharge Summary ---
<Danyell Ngo - Last Filed: 09/06/17 14:52> Date of Encounter: 09/06/17 Time of Encounter: 14:08 - Discharge Diagnosis (1) Aspiration pneumonia due to gastric secretions Priority: Primary Status: Acute Qualifiers: Laterality: right Lung location: middle lobe of lung Qualified Code(s): J69.0 - Pneumonitis due to inhalation of food and vomit (2) Goals of care, counseling/discussion Priority: Secondary Status: Acute (3) Protein calorie malnutrition Priority: Secondary Status: Chronic Qualifiers: Protein-calorie malnutrition severity: severe Qualified Code(s): E43 - Unspecified severe protein-calorie malnutrition (4) Trismus Priority: Secondary Status: Acute (5) 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 09/06/17 [Rx] Dextrose Gel [Gluctose] 30 gm PO ONCE PRN gel..gram. 09/06/17 [Rx] Glucagon, Human Recombinant [Glucagen] 1 mg IM ONCE PRN vial 09/06/17 [Rx] Heparin 5,000 unit SQ Q12HCO vial 09/06/17 [Rx] Ketorolac [Toradol] 15 mg IVP Q6HR PRN vial 09/06/17 [Rx] Lacri-Lube [Lacri-lube] 1 appl BOTH EYES BID tube 09/06/17 [Rx] OxyCODONE CONC 5 mg PO Q6HR PRN 4 Days #24 oral.syg 09/06/17 [Rx] Allergies/Adverse Reactions: 3 Allergy/AdvReac Type Severity Reaction Status Date / Time codeine Allergy Itching Verified 08/27/17 03:51 Date of admission: 08/27/17 04:51 Primary care physician: PCP NONE Consults: 08/27/17 03:26 Consult to Speech Therapy [CONS] Routine Comment: Evaluate, develop and implement POC Reason for Consult: Dysphagia Call Completed: No 08/27/17 03:47 Consult to Neurology [CONS] Routine Consulting Provider: [facility] Reason for Consult: PSP eval, trimus Call Completed: Yes 08/27/17 03:48 Consult to ENT [CONS] Routine Consulting Provider: ENT [facility] Reason for Consult: trimus eval Call Completed: Yes 08/30/17 11:25 Consult to Occupational Therapy [CONS] Routine Comment: Evaluate, develop and implement POC Reason for Consult: ambulate and assess Consult to Physical Therapy [CONS] Routine Comment: Evaluate, develop and implement POC Reason for Consult: ambulate assess for placement need 08/31/17 13:43 Consult to Palliative Care [CONS] Routine Comment: Consulting Provider: Palliative [facility] Reason for Consult: patient is hospice candidate Call Completed: Yes 09/01/17 09:43 Consult to Interventional Radiology [CONS] Routine Consulting Provider: Radiology Interventional Cols Reason for Consult: need a peg tube. Power of sign out clerk would prefer this to occur tomorrow since so that she can be here Call Completed: Yes 09/01/17 11:07 consult to water control supervisor [Consult to Nutrition] [CONS] Routine Comment: Consulting Provider: NUTRITION Reason for Dietary Consult: Tube Feed Start & Manage 09/03/17 08:20 Consult to Interventional Radiology [CONS] Routine Consulting Provider: Radiology Interventional Cols Reason for Consult: place NG tube under fluroscopy. Call Completed: No 09/03/17 13:59 consult to water control supervisor [Consult to Nutrition] [CONS] Routine Comment: Consulting Provider: NUTRITION Reason for Dietary Consult: TPN Start and Manage 09/03/17 15:16 Consult to Invasive Line Access Team [CONS] Routine Reason for Consult: Picc Line Insertion Line Type: PICC Discharging clinician: Adrian Mccartney Anticipated date of discharge: 09/06/17 - Patient Status Disposition: Transfer SNF Condition: Critical Functional capacity at discharge: bed bound Overall status at discharge: patient is back to baseline - Discharge Instructions Instructions: Chronic Dysphagia (DC), Pneumonia (DC) Follow Up With: NONE,PCP [Primary Care Provider] - Additional Instructions: follow up with PCP - Diet and Activity Activity: as per physical therapy Diet: other (TPN. Speech does not recommend PO) Hospital course: Ms. Miguel is a 72 year old female with history of excessive supranuclear palsy (PSP), cardiac ablation due to who presents to a DNR from [facility] due to aspiration pneumonia and trismus. The patient is accompanied by her power of sign out clerk and long-time friend, Peyton ([phone]) who provides the majority of The patient's story. The patient apparently has a progressive supranuclear palsy which has resulted in dysphagia, intermittent trismus and left sided body weakness for approximately 9 years. Apparently she regularly has problems with her jaw locking up, which are intermittent in nature, but then generally resolve spontaneously after only a short time. In the past week, the patient has apparently been experiencing more of these than she usually does, but as of this morning it was noted that her jaw remained in a locked position without her being able to move it at all. This is not something that she has ever experienced. In addition, it's noted that the patient has apparently had thicker oral secretions than is usual. In regard to the patient's medical history, Peyton mentions that she's been seen and treated by a neurologist for PSP for as long as she's had the disease. As the disease has progressed, she's noticed that she has had increasing weakness on the left side of her body, and she's been losing weight. The patient is generally relatively independent, despite constant medical assistance, and has been able to move herself into and out of a chair. The patient does ambulate with a walker and with assistance. Until this past June, she has also been able to feed herself. Since june, she has had increased difficulty with self -feeding and ADLs, and has required help to feed herself. Peyton says that the patient has also had more episodes of aspiration and choking related to this as well. She otherwise has no acute complaints. She was seen at the [facility] where she was given 2mg diazepam, which apparently did not help for longer than a minute or two. She did have a CT of the chest which demonstrated extensive aspiration pneumonia in the right middle and lower lobes, without pneumonia present in the left lung. Upon her admission she was started on IV antibiotics. ENT was consulted and evaluated the patient. Unclear etiology. ENT believe this could be severe arthritis vs lock jaw, and no evidence of infection, no ENT source. CT suggested some degeneration of the right head of the condyles time. Speech recommends the patient to be NPO. Neurology consulted, no treatment while inpatient. Evaluated by neurology, unfortunately no inpatient recommendations at this time, possible Botox injections to temporalis and masseter muscles bilaterally. They believe that this is a progression of disease PSP and supportive care is recommended. VALENTÍN Todd stated that she would like the patient to have a peg tube placed despite risk of aspiration and against the recommendations of palliative care, neurology, and primary hospitalist team. Interventional radiology was consulted to place the peg tube and after their evaluation they say that she is not a sedation candidate because for condition. Palliative care has seen the patient and POA, they do not want hospice. Swallow study cannot be done due to patient cannot initiate swallowing. IR believes placing a gastrostomy tube in this patient will cause pain and suffering without benefit. She signed waiver to feed the patient herself. Speech recommend NPO. NG tube had to be removed due to incorrect placement after KUB imaging. Interventional radiology has been consulted to place NG tube under fluroscopy, NG tube could not be placed either. VALENTÍN Todd decided she wanted TPN started after placing a PICC line. Social work was consulted and set up placement at [facility] with the patient could continue TPN. The patient was then accepted a [facility] and transferred. - Time Spent with Patient Total time spent providing and/or coordinating discharge services: Greater than 30 minutes - Constitutional Vitals: Temp Pulse Resp BP Pulse Ox 97.5 F L 68 14 94/71 100 09/06/17 11:48 09/06/17 11:48 09/06/17 11:48 09/06/17 11:48 09/06/17 11:48 General appearance: Present: cachectic, no acute distress. Absent: answers questions appropriately Exam: Gen.: Vitals noted. No acute distress. Cannot talk HEENT: oropharynx clear, Normocephalic, atraumatic Neck: Supple. No adenopathy. Cardiac: RRR, no murmur, +S1/S2 Pulmonary: CTA bilaterally, no wheezes, rales or rhonchi, equal chest expansion Abdomen: soft, nontender, Bowel sounds noted, no guarding MSK: ROM decreased , no joint swelling noted Extremities: no BLE edema, nontender calf, no cyanosis or clubbing Neuro: can only move right hand slightly Psych: Appropriate mood and behavior <Adrian Mccartney - Last Filed: 09/06/17 15:05> Date of Encounter: 09/06/17 - Discharge Diagnosis (1) Protein calorie malnutrition Status: Chronic Qualifiers: Protein-calorie malnutrition severity: severe Qualified Code(s): E43 - Unspecified severe protein-calorie malnutrition Date of admission: 08/27/17 04:51 Primary care physician: PCP NONE Consults: 08/27/17 03:26 Consult to Speech Therapy [CONS] Routine Comment: Evaluate, develop and implement POC Reason for Consult: Dysphagia Call Completed: No 08/27/17 03:47 Consult to Neurology [CONS] Routine Consulting Provider: [facility] Reason for Consult: PSP eval, trimus Call Completed: Yes 08/27/17 03:48 Consult to ENT [CONS] Routine Consulting Provider: ENT [facility] Reason for Consult: trimus eval Call Completed: Yes 08/30/17 11:25 Consult to Occupational Therapy [CONS] Routine Comment: Evaluate, develop and implement POC Reason for Consult: ambulate and assess Consult to Physical Therapy [CONS] Routine Comment: Evaluate, develop and implement POC Reason for Consult: ambulate assess for placement need 08/31/17 13:43 Consult to Palliative Care [CONS] Routine Comment: Consulting Provider: Palliative Care [facility] Reason for Consult: patient is hospice candidate Call Completed: Yes 09/01/17 09:43 Consult to Interventional Radiology [CONS] Routine Consulting Provider: Radiology Interventional Cols Reason for Consult: need a peg tube. Power of sign out clerk would prefer this to occur tomorrow since so that she can be here Call Completed: Yes 09/01/17 11:07 consult to water control supervisor [Consult to Nutrition] [CONS] Routine Comment: Consulting Provider: NUTRITION Reason for Dietary Consult: Tube Feed Start & Manage 09/03/17 08:20 Consult to Interventional Radiology [CONS] Routine Consulting Provider: Radiology Interventional Cols Reason for Consult: place NG tube under fluroscopy. Call Completed: No 09/03/17 13:59 consult to water control supervisor [Consult to Nutrition] [CONS] Routine Comment: Consulting Provider: NUTRITION Reason for Dietary Consult: TPN Start and Manage 09/03/17 15:16 Consult to Invasive Line Access Team [CONS] Routine Reason for Consult: Picc Line Insertion Line Type: PICC Hospital course: Ms. Miguel is a 72 year old female - Time Spent with Patient Total time spent providing and/or coordinating discharge services: - Constitutional Vitals: Temp Pulse Resp BP Pulse Ox 97.5 F L 68 14 94/71 100 09/06/17 11:48 09/06/17 11:48 09/06/17 11:48 09/06/17 11:48 09/06/17 11:48 - Attending Attestation Nine days of antibiotics completed Overall very poor prognosis, continue TPN Time spent on this discharge 40 minutes I examined this patient and my medical decision-making was reviewed with the Resident Physician. I agree with the documented findings, disposition and treatment plan as described except to the extent set forth below.
--- NOTE | 2017-09-06 14:52 | Physician Discharge Referral ---
<NgoDanyell - Last Filed: 09/06/17 14:49> [facility] Referral Info Transfer To: [facility] Provider in Charge after Transfer: PCP Institutional Level of Care: Skilled - Diagnosis (1) Aspiration pneumonia due to gastric secretions Status: Acute (2) Goals of care, counseling/discussion Status: Acute (3) Protein calorie malnutrition Status: Chronic (4) Trismus Status: Acute (5) Progressive supranuclear palsy Status: Chronic (6) Hypokalemia Status: Acute (7) DVT prophylaxis Status: Acute - Transfer Medications Home Medications: Sertraline [Zoloft] 100 mg PO DAILY 08/27/17 [History] Acetaminophen [Tylenol] 650 mg PO Q6HR PRN tablet 09/06/17 [Rx] Ciprofloxacin OPTH Soln [Ciloxan OPTH Soln] 2 drop BOTH EYES Q4HR bottle [Rx] Dextrose 50 % in Water (Syg) [Dextrose 50% (Syg)] 25 ml IVP AD PRN syringe 12/17 [Rx] Dextrose Gel [Gluctose] 15 gm PO ONCE PRN gel..gram. 09/06/17 [Rx] Dextrose Gel [Gluctose] 30 gm PO ONCE PRN gel..gram. 09/06/17 [Rx] Glucagon, Human Recombinant [Glucagen] 1 mg IM ONCE PRN vial 09/06/17 [Rx] Heparin 5,000 unit SQ Q12HCO vial 09/06/17 [Rx] Ketorolac [Toradol] 15 mg IVP Q6HR PRN vial 09/06/17 [Rx] Lacri-Lube [Lacri-lube] 1 appl BOTH EYES BID tube 09/06/17 [Rx] OxyCODONE CONC 5 mg PO Q6HR PRN 4 Days #24 oral.syg 09/06/17 [Rx] Allergies/Adverse Reactions: 3 Allergy/AdvReac Type Severity Reaction Status Date / Time codeine Allergy Itching Verified 08/27/17 03:51 - Respiratory Orders None Smoking Cessation: Smoking cessation has been advised. For more information, call the [employer] Tobacco Quit Line at 6-473-AFAX-NOW. - Advance Directives Code Status: DNR-Arrest/Don't Intubate - Mobility Orders Ambulate (Per PT/OT), Other (Per PT/OT) - Rehabiliation Orders Rehab Potential: Poor Rehab Orders: Evaluation for Physical Therapy, Evaluation for Occupational Therapy - Diet Orders Tube Feedings (type/amount/rate): TPN CERTIFICATION: I certify that the transfer of the above named patient to an Extended Care Facility is necessary for the continuing treatment of the diagnosis listed. The above information is true and accurate reflection of patient's current condition. Confidential - Redisclosure prohibited without a patient's written consent. Dr. Ngo <Adrian Mccartney - Last Filed: 09/06/17 15:05> - Diagnosis (1) Protein calorie malnutrition Status: Chronic - Respiratory Orders Smoking Cessation: Smoking cessation has been advised. For more information, call the [place] Tobacco Quit Line at 0-177-IZCCNOW. CERTIFICATION: I certify that the transfer of the above named patient to an Extended Care Facility is necessary for the continuing treatment of the diagnosis listed. The above information is true and accurate reflection of patient's current condition. Confidential - Redisclosure prohibited without a patient's written consent.
[2017-09-06] MEDS ORDERED: Clinimix E 5%-15% SOLUTION 2,000 ML with MVI, adult with vitamin K 10 ML IVC SCH (17:00)
== END 2017-09-06 18:15 | DRG 56 ==
LOC: 2ANU → SUATTDRO 08-27 04:51
PROVIDERS: ADMIT Internal Medicine Hematology & Oncology; ATTEND Internal Medicine

== ENCOUNTER 2017-10-26 18:04 | Inpatient (IN) ==
[2017-10-26] MEDS ORDERED: 0.9 % Sodium Chloride 1,000 ML IVC ONE (18:11)
--- NOTE | 2017-10-26 18:12 | Emergency Department Note ---
Disposition Clinical Impression: Sepsis, UTI (urinary tract infection), Pneumonia Disposition: Admitted As Inpatient Condition: Fair Referrals: NONE,PCP [Primary Care Provider] - Forms: ED Satisfaction Letter General Adult HPI - General Chief complaint: ED Arrhythmia/Palpitations Stated complaint: rapid HR/SOB Time Seen by Provider: 10/26/17 18:11 - Related Data Home Medications Medication Instructions Recorded Confirmed Acetaminophen [Tylenol 650mg SUPP] 650 mg RC Q4H PRN 10/26/17 10/26/17 Dextrose 10 % in Water [Dextrose 1,000 ml IV AD 10/26/17 10/26/17 10%-Water IV Solution] Heparin 5,000 unit SQ Q12H 10/26/17 10/26/17 Morphine Oral CONC [Roxanol] 5 mg SL Q4H PRN 10/26/17 10/26/17 Mvi, Adult No.4, Vit K, 1 of 2 5 ml IV AD 10/26/17 10/26/17 [Infuvite Adult Vial 1] Mvi, Adult No.4, Vit K, 2 of 2 5 ml IV AD 10/26/17 10/26/17 [Infuvite Adult Vial 2] Ondansetron [Zofran] 4 mg IM Q4H PRN 10/26/17 10/26/17 Polyvinyl Alcohol [Artificial 1 drop BOTH EYES Q4H PRN 10/26/17 10/26/17 Tears] Tpn 3,000 ml IV DAILY 10/26/17 10/26/17 Previous Rx's Medication Instructions Recorded Dextrose Gel [Gluctose] 15 gm PO ONCE PRN gel..gram. 09/06/17 Glucagon, Human Recombinant 1 mg IM ONCE PRN vial 09/06/17 [Glucagen] Lacri-Lube [Lacri-lube] 1 appl BOTH EYES BID tube 09/06/17 Allergies Allergy/AdvReac Type Severity Reaction Status Date / Time codeine Allergy Itching Verified 10/26/17 18:24 Past Medical History - Past Medical History Medical history: Reports: pulmonary embolus Surgical history: Reports: appendectomy, orthopedic, other Psychiatric history: Reports: no psych history - Social History Smoking Status: Never smoker Course Vital Signs Temperature 103.8 F H 10/26/17 18:08 Pulse Rate 150 10/26/17 18:08 Respiratory Rate 36 10/26/17 18:08 Blood Pressure 111/72 10/26/17 18:08 O2 Sat by Pulse Oximetry 91 10/26/17 18:08 Temperature 103.8 F H 10/26/17 18:08 Pulse Rate 114 10/26/17 20:21 Respiratory Rate 29 10/26/17 20:21 Blood Pressure 91/55 10/26/17 20:21 O2 Sat by Pulse Oximetry 97 10/26/17 20:21 Oxygen Delivery Oxygen Delivery Nasal Cannula Medical Decision Making - Lab Data Result diagrams: 10/26/17 18:49 10/26/17 18:49 Lab Results 10/26/17 10/26/17 10/26/17 Range/Units 18:42 18:49 18:49 WBC 3.7 L (4.3-11.1) K/mcL RBC 3.38 L (3.82-4.97) M/mcL Hgb 8.8 L (11.5-15.4) g/dL Hct 27.2 L (35.3-44.9) % MCV 80.5 L (83.0-100.0) fL MCH 26.0 L (28.0-33.3) pg MCHC 32.4 (31.6-35.5) g/dL RDW 15.4 H (11.5-14.5) % Plt Count 93 L (140-400) K/mcL MPV 10.2 (9.4-12.4) fL Immature Gran % 1.1 (0-4) % Seg Neutrophils % 81.9 % Lymphocytes % 6.1 % Monocytes % 9.1 % Eosinophils % 1.3 % Basophils % 0.5 % Neutrophils # 3.0 (1.6-8.9) K/mcL Lymphocytes # 0.2 L (0.6-4.6) K/mcL Monocytes # 0.3 (0.0-1.3) K/mcL Eosinophils # 0.1 (0.0-0.6) K/mcL Basophils # 0.0 (0.0-0.2) K/mcL Platelet Estimate Decreased L (Normal) Immature Plt Fraction 1.7 (1.1-6.1) % VBG pH (7.32-7.42) pH Units VBG pCO2 (41-51) mmHg VBG pO2 (25-50) mmHg VBG HCO3 (21-27) mEq/L Sodium 136 (136-145) mEq/L Potassium 3.7 (3.5-5.1) mEq/L Chloride 107 (98-107) mEq/L Carbon Dioxide 22 L (23-29) mEq/L BUN 47 H (8-23) mg/dL Creatinine 0.55 L (0.60-1.20) mg/dL Est GFR ( Amer) > 60 (> 60) Est GFR (Non-Af Amer) > 60 (> 60) BUN/Creatinine Ratio 85 H (6-26) Glucose 113 H (70-105) mg/dL Calculated Osmolality 295 (280-300) Lactic Acid (0.5-2.2) mmol/L Calcium 8.4 L (8.6-10.3) mg/dL Phosphorus 2.3 L (2.7-4.5) mg/dL Magnesium 1.6 (1.6-2.6) mg/dL Total Bilirubin 0.6 (0.3-1.0) mg/dL Direct Bilirubin 0.3 H (0.0-0.2) mg/dL Indirect Bilirubin 0.3 (0.0-1.2) mg/dL AST 47 H (13-39) Units/L ALT 64 H (7-52) Units/L Alkaline Phosphatase 129 H (34-104) Units/L Troponin I < 0.03 (< 0.04) ng/mL Serum Total Protein 6.8 (6.4-8.9) g/dL Albumin 2.8 L (3.5-5.7) g/dL Globulin 4.0 H (2.4-3.5) g/dL Albumin/Globulin Ratio 0.7 L (1.1-2.2) Urine Color Yellow (Yellow) Urine Clarity Turbid A (Clear) Urine pH 6.0 (5.0-8.0) pH Units Ur Specific Cedar 1.021 (1.010-1.025) Urine Protein Trace (Neg-Trace) mg/dL Urine Glucose (UA) Normal (Normal) mg/dL Urine Ketones Negative (Negative) mg/dL Urine Blood Moderate H (Negative) Urine Nitrite Positive A (Negative) Urine Bilirubin Negative (Negative) Urine Urobilinogen Normal (Normal) mg/dL Ur Leukocyte Esterase Large H (Negative) Urine Microscopic WBC TNTC H (0-3) per hpf Ur Squamous Epith Cells Few (None-Few) per lpf Ur Culture Indicated? YES A (NO) 10/26/17 10/26/17 Range/Units 18:49 20:04 WBC (4.3-11.1) K/mcL RBC (3.82-4.97) M/mcL Hgb (11.5-15.4) g/dL Hct (35.3-44.9) % MCV (83.0-100.0) fL MCH (28.0-33.3) pg MCHC (31.6-35.5) g/dL RDW (11.5-14.5) % Plt Count (140-400) K/mcL MPV (9.4-12.4) fL Immature Gran % (0-4) % Seg Neutrophils % % Lymphocytes % % Monocytes % % Eosinophils % % Basophils % % Neutrophils # (1.6-8.9) K/mcL Lymphocytes # (0.6-4.6) K/mcL Monocytes # (0.0-1.3) K/mcL Eosinophils # (0.0-0.6) K/mcL Basophils # (0.0-0.2) K/mcL Platelet Estimate (Normal) Immature Plt Fraction (1.1-6.1) % VBG pH 7.47 H (7.32-7.42) pH Units VBG pCO2 30 L (41-51) mmHg VBG pO2 193 H (25-50) mmHg VBG HCO3 22 (21-27) mEq/L Sodium (136-145) mEq/L Potassium (3.5-5.1) mEq/L Chloride (98-107) mEq/L Carbon Dioxide (23-29) mEq/L BUN (8-23) mg/dL Creatinine (0.60-1.20) mg/dL Est GFR ( Amer) (> 60) Est GFR (Non-Af Amer) (> 60) BUN/Creatinine Ratio (6-26) Glucose (70-105) mg/dL Calculated Osmolality (280-300) Lactic Acid 1.2 (0.5-2.2) mmol/L Calcium (8.6-10.3) mg/dL Phosphorus (2.7-4.5) mg/dL Magnesium (1.6-2.6) mg/dL Total Bilirubin (0.3-1.0) mg/dL Direct Bilirubin (0.0-0.2) mg/dL Indirect Bilirubin (0.0-1.2) mg/dL AST (13-39) Units/L ALT (7-52) Units/L Alkaline Phosphatase (34-104) Units/L Troponin I (< 0.04) ng/mL Serum Total Protein (6.4-8.9) g/dL Albumin (3.5-5.7) g/dL Globulin (2.4-3.5) g/dL Albumin/Globulin Ratio (1.1-2.2) Urine Color (Yellow) Urine Clarity (Clear) Urine pH (5.0-8.0) pH Units Ur Specific Cedar (1.010-1.025) Urine Protein (Neg-Trace) mg/dL Urine Glucose (UA) (Normal) mg/dL Urine Ketones (Negative) mg/dL Urine Blood (Negative) Urine Nitrite (Negative) Urine Bilirubin (Negative) Urine Urobilinogen (Normal) mg/dL Ur Leukocyte Esterase (Negative) Urine Microscopic WBC (0-3) per hpf Ur Squamous Epith Cells (None-Few) per lpf Ur Culture Indicated? (NO) Critical Care Time Critical Care Time: Yes Total Critical Care Time: 30 Attestation: The high probability of a clinically significant, sudden or life threatening deterioration of the [] system(s) required my full and direct attention, intervention and personal management. The aggregate critical care time was [] minutes. This time is in addition to time spent performing reported procedures but includes the following: [] Data Review and interpretation [] Patient assessment and monitoring of vital signs [] Documentation [] Medication orders and management Attestation Statement - Attestation Attestation: I examined this patient and my medical decision-making was reviewed with the Resident Physician. I agree with the documented findings, disposition and treatment plan as described except to the extent set forth below. [id number] time provided Patient evaluated upon her arrival by EMS from the [facility]. She presents with a fever and tachycardia. She is nonverbal on exam. Home medication list reviewed by me
[2017-10-26] MEDS ORDERED: Acetaminophen 650 MG RECTAL SUPP RC ONE (18:16)
[2017-10-26] MEDS ORDERED: 0.9 % Sodium Chloride 250 ML IVC ONE (18:31)
[2017-10-26 18:55] LABS: Bilirubin,Urine Negative (Negative); Blood,Urine Moderate (Negative); Clarity,Urine Turbid (Clear); Color,Urine Yellow (Yellow); Glucose,Urine (UA) Normal (Normal); Ketones,Urine Negative (Negative); Leukocyte Esterase,Urine Large (Negative); Nitrite,Urine Positive (Negative); Protein,Urine Trace mg/dL (Neg-Trace); Specific Gravity,Urine 1.021 (1.010-1.025); Urobilinogen,Urine Normal (Normal)
--- NOTE | 2017-10-26 19:03 | Emergency Department Note ---
Disposition Clinical Impression: Sepsis Qualifiers: Sepsis type: sepsis due to unspecified organism Qualified Code(s): A41.9 - Sepsis, unspecified organism UTI (urinary tract infection) Qualifiers: Urinary tract infection type: site unspecified Hematuria presence: without hematuria Qualified Code(s): N39.0 - Urinary tract infection, site not specified Pneumonia Qualifiers: Pneumonia type: aspiration pneumonia Aspiration pneumonia type: unspecified Laterality: right Lung location: lower lobe of lung Qualified Code(s): J69.0 - Pneumonitis due to inhalation of food and vomit Disposition: Admitted As Inpatient Condition: Fair Time of Disposition: 20:23 General Adult HPI - General Chief complaint: ED Arrhythmia/Palpitations Stated complaint: rapid HR/SOB Time Seen by Provider: 10/26/17 18:11 Source: EMS Mode of arrival: EMS Limitations: language barrier, altered mental status Nursing Notes Reviewed: Yes Vital Signs Reviewed: Yes - History of Present Illness HPI Narrative: Patient is a 72-year-old female with a past medical history of supranuclear palsy presenting from intermediate by squad for decline in mental status, fever , increased respiratory rate and concern for infection. According to EMS the patient was sent here for concerns for sepsis. Patient's POA Peyton arrived shortly after patient's arrival and states that when she saw the patient yesterday evening she was fine at that time. She states that her baseline is giving thumbs up or squeezing her hand. States that she does have unilateral weakness and neurodeficits which are chronic. Pain Scale: 0 - Related Data Home Medications Medication Instructions Recorded Confirmed Acetaminophen [Tylenol 650mg SUPP] 650 mg RC Q4H PRN 10/26/17 10/26/17 Dextrose 10 % in Water [Dextrose 1,000 ml IV AD 10/26/17 10/26/17 10%-Water IV Solution] Heparin 5,000 unit SQ Q12H 10/26/17 10/26/17 Morphine Oral CONC [Roxanol] 5 mg SL Q4H PRN 10/26/17 10/26/17 Mvi, Adult No.4, Vit K, 1 of 2 5 ml IV AD 10/26/17 10/26/17 [Infuvite Adult Vial 1] Mvi, Adult No.4, Vit K, 2 of 2 5 ml IV AD 10/26/17 10/26/17 [Infuvite Adult Vial 2] Ondansetron [Zofran] 4 mg IM Q4H PRN 10/26/17 10/26/17 Polyvinyl Alcohol [Artificial 1 drop BOTH EYES Q4H PRN 10/26/17 10/26/17 Tears] Tpn 3,000 ml IV DAILY 10/26/17 10/26/17 Previous Rx's Medication Instructions Recorded Dextrose Gel [Gluctose] 15 gm PO ONCE PRN gel..gram. 09/06/17 Glucagon, Human Recombinant 1 mg IM ONCE PRN vial 09/06/17 [Glucagen] Lacri-Lube [Lacri-lube] 1 appl BOTH EYES BID tube 09/06/17 Allergies Allergy/AdvReac Type Severity Reaction Status Date / Time codeine Allergy Itching Verified 10/26/17 18:24 Limitations: ROS unobtainable due to patients medical condition Past Medical History - Past Medical History Medical history: Reports: pulmonary embolus Surgical history: Reports: appendectomy, orthopedic, other Psychiatric history: Reports: no psych history - Social History Smoking Status: Never smoker Smokeless Tobacco Status: No Alcohol use: Reports: none Drug use: Reports: none Physical Exam - General Limitations: language barrier, altered mental status General appearance: lethargic, obtunded - Head Head exam: atraumatic, normocephalic, normal inspection - Eye Eye exam: Present: normal appearance, PERRL - ENT ENT exam: normal exam, mucous membranes dry - Chest Chest inspection: Present: symmetric chest wall rise. Absent: rash - Respiratory Respiratory exam: Present: normal lung sounds bilaterally, other (Patient has tachypnea). Absent: wheezes, stridor - Cardiovascular Cardiovascular exam: Present: tachycardia, normal heart sounds, +S1, +S2 - Abdominal Exam Abdominal exam: Present: soft, normal bowel sounds - Extremities Exam Extremities exam: Present: other (Range of motion and extremities is rigid secondary to history of palsy and is stated to be chronic per family over present.) - Back Exam Back exam: Present: normal inspection (Patient does have a bandage on her back on the left thoracic region which her POA states is for protection from bedsores. Patient has no obvious bedsores at this time.). Absent: rashes - Neurological Exam Neurological exam: Present: alert, other (Limited exam secondary to supranuclear palsy) - Skin Skin exam: Present: warm, intact, normal color Course Course Narrative: Patient arrived to the emergency department altered beyond baseline, febrile, with tachypnea, and tachycardic. There is not an obvious source of infection on physical exam. The patient was initiated on IV fluid. Blood pressure is currently stable. Cultures will be obtained. An once a source is found IV antibiotics will be initiated. Patient is otherwise stable at this time. We will continue to monitor closely. - Reevaluation(s) Reevaluation #1: Patient's fluids are going in her blood pressure remains 110 systolic and tachycardia has improved from 150->130. Still awaiting lab results at this time. Time: 19:10 Reevaluation #2: Patient continues to remain stable at this time. IV antibiotics were initiated including Zosyn and clindamycin to cover for aspiration pneumonia and urinary tract infection. Patient will be admitted to the hospital at this time. Time: 20:10 Vital Signs Temperature 103.8 F H 10/26/17 18:08 Pulse Rate 150 10/26/17 18:08 Respiratory Rate 36 10/26/17 18:08 Blood Pressure 111/72 10/26/17 18:08 O2 Sat by Pulse Oximetry 91 10/26/17 18:08 Temperature 96.6 F L 10/27/17 23:21 Pulse Rate 86 10/27/17 23:21 Respiratory Rate 20 10/27/17 23:21 Blood Pressure 119/63 10/27/17 23:21 O2 Sat by Pulse Oximetry 98 10/27/17 23:21 Oxygen Delivery Oxygen Delivery Nasal Cannula Medical Decision Making - Medical Records Medical records reviewed: Yes I reviewed the patient's medical records. - Lab Data Lab results reviewed: Yes I reviewed the patient's lab results. Result diagrams: 10/27/17 00:43 10/27/17 00:43 Lab Results 10/26/17 10/26/17 10/26/17 Range/Units 18:42 18:49 18:49 WBC 3.7 L (4.3-11.1) K/mcL RBC 3.38 L (3.82-4.97) M/mcL Hgb 8.8 L (11.5-15.4) g/dL Hct 27.2 L (35.3-44.9) % MCV 80.5 L (83.0-100.0) fL MCH 26.0 L (28.0-33.3) pg MCHC 32.4 (31.6-35.5) g/dL RDW 15.4 H (11.5-14.5) % Plt Count 93 L (140-400) K/mcL MPV 10.2 (9.4-12.4) fL Immature Gran % 1.1 (0-4) % Seg Neutrophils % 81.9 % Lymphocytes % 6.1 % Monocytes % 9.1 % Eosinophils % 1.3 % Basophils % 0.5 % Neutrophils # 3.0 (1.6-8.9) K/mcL Lymphocytes # 0.2 L (0.6-4.6) K/mcL Monocytes # 0.3 (0.0-1.3) K/mcL Eosinophils # 0.1 (0.0-0.6) K/mcL Basophils # 0.0 (0.0-0.2) K/mcL Platelet Estimate Decreased L (Normal) Immature Plt Fraction 1.7 (1.1-6.1) % VBG pH (7.32-7.42) pH Units VBG pCO2 (41-51) mmHg VBG pO2 (25-50) mmHg VBG HCO3 (21-27) mEq/L Sodium 136 (136-145) mEq/L Potassium 3.7 (3.5-5.1) mEq/L Chloride 107 (98-107) mEq/L Carbon Dioxide 22 L (23-29) mEq/L BUN 47 H (8-23) mg/dL Creatinine 0.55 L (0.60-1.20) mg/dL Est GFR ( Amer) > 60 (> 60) Est GFR (Non-Af Amer) > 60 (> 60) BUN/Creatinine Ratio 85 H (6-26) Glucose 113 H (70-105) mg/dL Calculated Osmolality 295 (280-300) Lactic Acid (0.5-2.2) mmol/L Calcium 8.4 L (8.6-10.3) mg/dL Phosphorus 2.3 L (2.7-4.5) mg/dL Magnesium 1.6 (1.6-2.6) mg/dL Total Bilirubin 0.6 (0.3-1.0) mg/dL Direct Bilirubin 0.3 H (0.0-0.2) mg/dL Indirect Bilirubin 0.3 (0.0-1.2) mg/dL AST 47 H (13-39) Units/L ALT 64 H (7-52) Units/L Alkaline Phosphatase 129 H (34-104) Units/L Troponin I < 0.03 (< 0.04) ng/mL Serum Total Protein 6.8 (6.4-8.9) g/dL Albumin 2.8 L (3.5-5.7) g/dL Globulin 4.0 H (2.4-3.5) g/dL Albumin/Globulin Ratio 0.7 L (1.1-2.2) Urine Color Yellow (Yellow) Urine Clarity Turbid A (Clear) Urine pH 6.0 (5.0-8.0) pH Units Ur Specific [place] 1.021 (1.010-1.025) Urine Protein Trace (Neg-Trace) mg/dL Urine Glucose (UA) Normal (Normal) mg/dL Urine Ketones Negative (Negative) mg/dL Urine Blood Moderate H (Negative) Urine Nitrite Positive A (Negative) Urine Bilirubin Negative (Negative) Urine Urobilinogen Normal (Normal) mg/dL Ur Leukocyte Esterase Large H (Negative) Urine Microscopic WBC TNTC H (0-3) per hpf Ur Squamous Epith Cells Few (None-Few) per lpf Ur Culture Indicated? YES A (NO) 10/26/17 10/26/17 Range/Units 18:49 20:04 WBC (4.3-11.1) K/mcL RBC (3.82-4.97) M/mcL Hgb (11.5-15.4) g/dL Hct (35.3-44.9) % MCV (83.0-100.0) fL MCH (28.0-33.3) pg MCHC (31.6-35.5) g/dL RDW (11.5-14.5) % Plt Count (140-400) K/mcL MPV (9.4-12.4) fL Immature Gran % (0-4) % Seg Neutrophils % % Lymphocytes % % Monocytes % % Eosinophils % % Basophils % % Neutrophils # (1.6-8.9) K/mcL Lymphocytes # (0.6-4.6) K/mcL Monocytes # (0.0-1.3) K/mcL Eosinophils # (0.0-0.6) K/mcL Basophils # (0.0-0.2) K/mcL Platelet Estimate (Normal) Immature Plt Fraction (1.1-6.1) % VBG pH 7.47 H (7.32-7.42) pH Units VBG pCO2 30 L (41-51) mmHg VBG pO2 193 H (25-50) mmHg VBG HCO3 22 (21-27) mEq/L Sodium (136-145) mEq/L Potassium (3.5-5.1) mEq/L Chloride (98-107) mEq/L Carbon Dioxide (23-29) mEq/L BUN (8-23) mg/dL Creatinine (0.60-1.20) mg/dL Est GFR ( Amer) (> 60) Est GFR (Non-Af Amer) (> 60) BUN/Creatinine Ratio (6-26) Glucose (70-105) mg/dL Calculated Osmolality (280-300) Lactic Acid 1.2 (0.5-2.2) mmol/L Calcium (8.6-10.3) mg/dL Phosphorus (2.7-4.5) mg/dL Magnesium (1.6-2.6) mg/dL Total Bilirubin (0.3-1.0) mg/dL Direct Bilirubin (0.0-0.2) mg/dL Indirect Bilirubin (0.0-1.2) mg/dL AST (13-39) Units/L ALT (7-52) Units/L Alkaline Phosphatase (34-104) Units/L Troponin I (< 0.04) ng/mL Serum Total Protein (6.4-8.9) g/dL Albumin (3.5-5.7) g/dL Globulin (2.4-3.5) g/dL Albumin/Globulin Ratio (1.1-2.2) Urine Color (Yellow) Urine Clarity (Clear) Urine pH (5.0-8.0) pH Units Ur Specific [place] (1.010-1.025) Urine Protein (Neg-Trace) mg/dL Urine Glucose (UA) (Normal) mg/dL Urine Ketones (Negative) mg/dL Urine Blood (Negative) Urine Nitrite (Negative) Urine Bilirubin (Negative) Urine Urobilinogen (Normal) mg/dL Ur Leukocyte Esterase (Negative) Urine Microscopic WBC (0-3) per hpf Ur Squamous Epith Cells (None-Few) per lpf Ur Culture Indicated? (NO) - Radiology Data Radiology results reviewed: Yes I reviewed the patient's radiology results. Chest X-Ray 10/26/17 18:11 IMPRESSION: 1. Large hiatal hernia 2. Possible right lower lobe pneumonia D/ / Kai Rolle MD / Kai Rolle MD Interpreting Provider: Kai Rolle MD - EKG Data EKG #1 EKG attestation: Yes I reviewed and interpreted this EKG. EKG results narrative: EKG shows sinus tachycardia with a short [place] interval consider atrial flutter at a rate of 145 bpm. Normal axis. [place] is 112, QRS is 69, QT is 239 and QTc is 323 and these are within normal limits. No signs of ST elevation, ST depression or Q waves present at this time. No old EKG for comparison
[2017-10-26 19:11] LABS: Basophils % 0.5 %; Eosinophils # 0.1 K/mcL (0.0-0.6); Eosinophils % 1.3 %; Hematocrit 27.2 % (35.3-44.9); Hemoglobin 8.8 g/dL (11.5-15.4); Immature Granulocytes % 1.1 % (0-4); Immature Platelets 1.7 % (1.1-6.1); Lymphocytes # 0.2 K/mcL (0.6-4.6); Lymphocytes % 6.1 %; Mean Corpuscular HGB Conc 32.4 g/dL (31.6-35.5); Mean Corpuscular Volume 80.5 fL (83.0-100.0); Mean Platelet Volume 10.2 fL (9.4-12.4); Monocytes # 0.3 K/mcL (0.0-1.3); Monocytes % 9.1 %; Red Blood Count 3.38 M/mcL (3.82-4.97); Red Cell Distribution Width 15.4 % (11.5-14.5); Segmented Neutrophils % 81.9 %
[2017-10-26 19:22] LABS: Alanine Aminotransferase 64 Units/L (7-52); Albumin 2.8 g/dL (3.5-5.7); Albumin/Globulin Ratio 0.7 (1.1-2.2); Alkaline Phosphatase 129 Units/L (34-104); Aspartate Amino Transferase 47 Units/L (13-39); BUN/Creatinine Ratio 85 (6-26); Bilirubin,Direct 0.3 mg/dL (0.0-0.2); Bilirubin,Indirect 0.3 mg/dL (0.0-1.2); Bilirubin,Total 0.6 mg/dL (0.3-1.0); Blood Urea Nitrogen 47 mg/dL (8-23); Calcium 8.4 mg/dL (8.6-10.3); Carbon Dioxide 22 mEq/L (23-29); Chloride 107 mEq/L (98-107); Glucose 113 mg/dL (70-105); Magnesium 1.6 mg/dL (1.6-2.6); Osmolality,Calculated 295 (280-300); Phosphorous 2.3 mg/dL (2.7-4.5); Potassium 3.7 mEq/L (3.5-5.1); Sodium 136 mEq/L (136-145); Total Protein 6.8 g/dL (6.4-8.9); Troponin I < 0.03 ng/mL (< 0.04); eGFR For African Americans > 60 (> 60); eGFR For Non-African Americans > 60 (> 60)
[2017-10-26 19:29] LABS: Platelet Count 93 K/mcL (140-400)
[2017-10-26 19:34] LABS: Platelet Estimate Decreased (Normal)
[2017-10-26] MEDS ORDERED: Clindamycin 900 MG/50 ML 900 MG/50 ML IV.SOLN IVPB ONE (19:39)
[2017-10-26] MEDS ORDERED: Piperacillin/Tazobactam 3.375 GM in 0.9 % Sodium Chloride Mini Bag 100 ML IVPB ONE (19:39)
[2017-10-26 19:41] LABS: Squamous Epithelial Cell,Urine Few per lpf (None-Few); WBC,Urine TNTC per hpf (0-3)
[2017-10-26 20:08] LABS: VBG HCO3 22 mEq/L (21-27); VBG PCO2 30 mmHg (41-51); VBG PH 7.47 pH Units (7.32-7.42); VBG PO2 193 mmHg (25-50)
[2017-10-26] MEDS ORDERED: Naloxone 0.4 MG/ML INJ IVP PRN (22:26)
[2017-10-26] MEDS ORDERED: Acetaminophen 325 MG TABLET PO PRN (22:26)
[2017-10-26] MEDS ORDERED: 0.9 % Sodium Chloride 1,000 ML IVC SCH (22:30)
--- NOTE | 2017-10-26 23:32 | Internal Med History&Physical ---
Date of Encounter: 10/26/17 Time of Encounter: 21:00 Assessment and Plan (1) Progressive supranuclear palsy Current visit: No Status: Chronic Cont closely monitoring. Swallow evaluation in AM (2) DVT prophylaxis Current visit: No Status: Acute Heparin SC (3) Sepsis Current visit: Yes Status: Acute Pt meets sepsis criteria with fever and tachycardia. Source of infection probably PNA or UTI. - IVF resuscitation started the from ER - Antibiotics started from ER - Initial lactate acid level 1.2 - Continue IV fluid and antibiotic treatment, follow-up blood culture results Qualifiers: Sepsis type: sepsis due to unspecified organism Qualified Code(s): A41.9 - Sepsis, unspecified organism (4) UTI (urinary tract infection) Current visit: Yes Status: Acute Continue antibiotic treatment and follow-up urine culture Qualifiers: Urinary tract infection type: site unspecified Hematuria presence: without hematuria Qualified Code(s): N39.0 - Urinary tract infection, site not specified (5) Pneumonia Current visit: Yes Status: Acute Patient was from [facility]. Patient has history of progressive supranuclear palsy. Consider HCAP or aspiration pneumonia. - Place patient on Vanco and Zosyn - Follow-up blood culture - Oxygen supportive treatment - Keep nothing by mouth at this point, swallow evaluation for appropriate diet order. Qualifiers: Pneumonia type: aspiration pneumonia Aspiration pneumonia type: unspecified Laterality: right Lung location: lower lobe of lung Qualified Code(s): J69.0 - Pneumonitis due to inhalation of food and vomit Internal Medicine - H&P: HPI Chief complaint: Fever Admitted From: Long-term Nursing Facility Plans for Post Hospital Care: Transfer [facility] History of present illness: Ms. Miguel is a 72 year old female with history of progressive supranuclear palsy, sent from [facility] for fever and shortness of breath. Patient is nonverbal. Hx is obtained from old chart and tranfer documentation. As per record, Pt is fine yesterday and was found fever with tachycardia and SOB today. In ER, CXR shows possible RLL pneumonia. UA shows UTI. Pt was admitted for sepsis possibly due to PNA or UTI. Per [place] documentation, pt's CODE STATUS is DNR/DNI. Past Med Surg Social Fam HX - Past Medical History Medical history: pulmonary embolus Psychiatric history: no psych history - Past Surgical History Surgical History: appendectomy, orthopedic, other - Social History Smoking Status: Never smoker Smokeless Tobacco Status: No Alcohol use: none Drug use: none - Family History Mother History Unknown: Yes Internal Medicine - H&P: Meds Dextrose Gel [Gluctose] 15 gm PO ONCE PRN gel..gram. 09/06/17 [Rx] Glucagon, Human Recombinant [Glucagen] 1 mg IM ONCE PRN vial 09/06/17 [Rx] Lacri-Lube [Lacri-lube] 1 appl BOTH EYES BID tube 09/06/17 [Rx] Acetaminophen [Tylenol 650mg SUPP] 650 mg RC Q4H PRN 10/26/17 [History] Dextrose 10 % in Water [Dextrose 10%-Water IV Solution] 1,000 ml IV AD 10/26/17 [History] Heparin 5,000 unit SQ Q12H 10/26/17 [History] Morphine Oral CONC [Roxanol] 5 mg SL Q4H PRN 10/26/17 [History] Mvi, Adult No.4, Vit K, 1 of 2 [Infuvite Adult Vial 1] 5 ml IV AD 10/26/17 [ History] Mvi, Adult No.4, Vit K, 2 of 2 [Infuvite Adult Vial 2] 5 ml IV AD 10/26/17 [ History] Ondansetron [Zofran] 4 mg IM Q4H PRN 10/26/17 [History] Polyvinyl Alcohol [Artificial Tears] 1 drop BOTH EYES Q4H PRN 10/26/17 [History] Tpn 3,000 ml IV DAILY 10/26/17 [History] 3 Allergy/AdvReac Type Severity Reaction Status Date / Time codeine Allergy Itching Verified 10/26/17 18:24 All Systems PM: A 10-system review of systems was performed and is negative for pertinent findings except as documented above in the HPI. - Constitutional Vitals: Temp Pulse Resp BP Pulse Ox 99.1 F 102 16 95/59 97 10/26/17 22:25 10/26/17 22:25 10/26/17 22:25 10/26/17 22:25 10/26/17 22:25 General appearance: Present: A&O X 0, mild distress - Head Head exam: Present: atraumatic, normocephalic - Eye Eye exam: Present: PERRL, conjuntiva pink, sclera anicteric Pupils: Present: PERRL - Neck Neck exam general surgery: Present: supple, trachea midline. Absent: lymphadenopathy - Respiratory Respiratory exam: Present: CTAB, respiratory distress, rhonchi (Scattered rhonchi b/l). Absent: accessory muscle use, rales, wheezes - Cardiovascular Cardiovascular exam: Present: RRR, +S1, +S2, tachycardia. Absent: diastolic murmur, gallop, rubs, systolic murmur - GI/Abdominal GI/Abdominal exam: Present: normal bowel sounds, soft, no peritoneal signs. Absent: distended, tenderness - Extremities Exam Extremities exam: Present: warm, radial pulses palpable and symmetrical. Absent : calf tenderness, cyanotic, pedal edema - Neurological Exam Neurological exam: Present: CN II-XII intact, oriented X3, no focal deficits. Absent: pronater drift, facial droop, speech deficit - Skin Skin exam: Present: dry, intact Internal Med - H&P Results - Labs CBC & Chem 7: 10/26/17 18:49 10/26/17 18:49
[2017-10-27 01:07] LABS: Basophils % 0.3 %; Eosinophils % 0.6 %; Hematocrit 23.6 % (35.3-44.9); Hemoglobin 7.4 g/dL (11.5-15.4); Immature Granulocytes % 0.6 % (0-4); Immature Platelets 1.2 % (1.1-6.1); Lymphocytes # 0.3 K/mcL (0.6-4.6); Lymphocytes % 8.1 %; Mean Corpuscular HGB Conc 31.4 g/dL (31.6-35.5); Mean Corpuscular Volume 82.8 fL (83.0-100.0); Mean Platelet Volume 10.2 fL (9.4-12.4); Monocytes # 0.2 K/mcL (0.0-1.3); Monocytes % 6.3 %; Neutrophils # 2.7 K/mcL (1.6-8.9); Platelet Count 86 K/mcL (140-400); Red Blood Count 2.85 M/mcL (3.82-4.97); Red Cell Distribution Width 15.5 % (11.5-14.5); Segmented Neutrophils % 84.1 %
[2017-10-27 01:13] LABS: BUN/Creatinine Ratio 72 (6-26); Blood Urea Nitrogen 42 mg/dL (8-23); Calcium 7.6 mg/dL (8.6-10.3); Carbon Dioxide 21 mEq/L (23-29); Chloride 111 mEq/L (98-107); Glucose 134 mg/dL (70-105); Magnesium 1.6 mg/dL (1.6-2.6); Osmolality,Calculated 302 (280-300); Potassium 3.7 mEq/L (3.5-5.1); Sodium 140 mEq/L (136-145); eGFR For African Americans > 60 (> 60); eGFR For Non-African Americans > 60 (> 60)
[2017-10-27] MEDS: 0.9 % Sodium Chloride 1,000 ML IVC SCH ×2 (01:35→14:27)
[2017-10-27] MEDS ORDERED: Piperacillin/Tazobactam 3.375 GM in 0.9 % Sodium Chloride Mini Bag 100 ML IVPB SCH (06:00)
[2017-10-27] MEDS: *HR* Heparin 5,000 UNIT/ML VIAL SQ SCH ×2 (06:38→17:43)
--- NOTE | 2017-10-27 08:15 | Internal Med Progress Note ---
<Kai Cunha - Last Filed: 10/27/17 09:24> Date of Encounter: 10/27/17 Time of Encounter: 09:24 - Assessment and plan (1) Sepsis Current Visit: Yes Status: Acute Assessment and plan: Sepsis secondary to UTI vs. Community Acquired Sepsis criteria present: Hypotension, tachycardia, tachypnea, leukopenia with PNA and UTI Patient received bolus fluids in the ED Broad spectrum antibiotics Vancomycin Day 2 Zosyn Day 2 Blood pressure continues to drop at this time I will bolus 1L fluid now We will watch closely and re-evaluate as needed Qualifiers: Sepsis type: sepsis due to unspecified organism Qualified Code(s): A41.9 - Sepsis, unspecified organism (2) UTI (urinary tract infection) Current Visit: Yes Status: Acute Assessment and plan: Continue with IV Antibiotics [place] catheter Qualifiers: Urinary tract infection type: site unspecified Hematuria presence: without hematuria Qualified Code(s): N39.0 - Urinary tract infection, site not specified (3) Pneumonia Current Visit: Yes Status: Acute Assessment and plan: CXR shows RLL pneumonia, Likely HCAP vs. Aspiration Patient does not have cough at this time On IV Antibiotics for coverage of HCAP Qualifiers: Pneumonia type: aspiration pneumonia Aspiration pneumonia type: unspecified Laterality: right Lung location: lower lobe of lung Qualified Code(s): J69.0 - Pneumonitis due to inhalation of food and vomit (4) Generalized pain Current Visit: Yes Status: Chronic Assessment and plan: Control pain (5) Progressive supranuclear palsy Current Visit: No Status: Chronic Assessment and plan: The patient has history of PNP Chronic trismus, neck contractures She is non-verbal We will continue to treat pain (6) Protein calorie malnutrition Current Visit: Yes Status: Chronic Assessment and plan: Consult to Nutrition for tube feed Qualifiers: Protein-calorie malnutrition severity: severe Qualified Code(s): E43 - Unspecified severe protein-calorie malnutrition (7) DVT prophylaxis Current Visit: No Status: Acute - Subjective Interval history: The patient is lying in bed moaning at time of exam. She is non-verbal and cannot give a detailed history. She has continued to have hypotension overnight and into the morning. Her tachycardia has largely resolved - Constitutional Vitals: Temp Pulse Resp BP Pulse Ox 97.8 F 85 20 88/62 97 10/27/17 07:08 10/27/17 07:08 10/27/17 07:08 10/27/17 07:08 10/27/17 07:08 General appearance: Present: A&O X 0, mild distress Exam: Gen: Vitals noted. Moderately distressed HEENT: The patient has contractions and trismus. Cannot open mouth Neck: Supple. No adenopathy. Cardiac: RRR, no murmur, +S1/S2 Pulmonary: CTA bilaterally, no wheezes, rales or rhonchi, equal chest expansion. B/L Diminished Abdomen: soft, nontender, BS noted, no guarding Back: Nontender throughout. MSK: Substantial atrophy globally, contracted upper extremities Extremities: no BLE edema, nontender calf, no cyanosis or clubbing Neuro: Difficult to assess. Responds to questions but not in a logical way Internal Medicine: Result - Labs CBC & Chem 7: 10/27/17 00:43 10/27/17 00:43 Labs: Short CBC 10/27/17 Range/Units 00:43 WBC 3.2 L (4.3-11.1) K/mcL Hgb 7.4 L (11.5-15.4) g/dL Hct 23.6 L (35.3-44.9) % Plt Count 86 L (140-400) K/mcL Neutrophils # 2.7 (1.6-8.9) K/mcL BMP 10/27/17 00:43 Sodium 140 Potassium 3.7 Chloride 111 H Carbon Dioxide 21 L BUN 42 H Creatinine 0.58 L Glucose 134 H Calcium 7.6 L Consult Discharge Plan - Plan Referrals: NONE,PCP [Primary Care Provider] - <Adrian Mccartney H - Last Filed: 10/27/17 10:37> Date of Encounter: 10/27/17 - Constitutional Vitals: Temp Pulse Resp BP Pulse Ox 97.8 F 85 20 88/62 97 10/27/17 07:08 10/27/17 07:08 10/27/17 07:08 10/27/17 07:08 10/27/17 07:08 Internal Medicine: Result - Labs CBC & Chem 7: 10/27/17 00:43 10/27/17 00:43 Labs: Short CBC 10/27/17 Range/Units 00:43 WBC 3.2 L (4.3-11.1) K/mcL Hgb 7.4 L (11.5-15.4) g/dL Hct 23.6 L (35.3-44.9) % Plt Count 86 L (140-400) K/mcL Neutrophils # 2.7 (1.6-8.9) K/mcL BMP 10/27/17 00:43 Sodium 140 Potassium 3.7 Chloride 111 H Carbon Dioxide 21 L BUN 42 H Creatinine 0.58 L Glucose 134 H Calcium 7.6 L - Attending Attestation Severe sepsis secondary to healthcare associated pneumonia present upon admission Continue vancomycin IV, at Levaquin and continues Zosyn for now Aggressive hydration, the patient does not respond we will switch to meropenem Aspiration precautions, continue TPN Consider central line and ICU care I examined this patient and my medical decision-making was reviewed with the Resident Physician. I agree with the documented findings, disposition and treatment plan as described except to the extent set forth below.
[2017-10-27] MEDS ORDERED: 0.9 % Sodium Chloride 1,000 ML IVC ONE ×2 (09:31→11:59)
[2017-10-27] MEDS ORDERED: Acetaminophen IV 1,000 MG/100 ML INFUS..BTL IVPB ONE (09:40)
[2017-10-27] MEDS ORDERED: MORPHINE SUL Oral CONC 10 MG/0.5 ML ORAL.SYG SL PRN (09:44)
[2017-10-27 10:35] LABS: INR 1.2; Prothrombin Time 13.4 Seconds (9.4-12.1)
[2017-10-27] MEDS ORDERED: Levofloxacin 750 MG/150 ML 750 MG/150 ML BAG IVPB SCH (11:00)
[2017-10-27] MEDS ORDERED: 0.9 % Sodium Chloride 1,000 ML ONE (12:05)
[2017-10-27] MEDS ORDERED: Dextrose Gel 15 GM/37.5 ML TUBE PO PRN ×2 (14:16)
[2017-10-27] MEDS ORDERED: D5% in Water 1,000 ML IVC PRN (14:16)
[2017-10-27] MEDS ORDERED: *HR* Dextrose 50 % in Water (Syg) 50 ML SYRINGE IVP PRN (14:16)
[2017-10-27] MEDS: Meropenem 1,000 MG in Water for inj. (sterile) 20 ML 10 ML IVP SCH (14:59)
[2017-10-27] MEDS: Fluconazole 400 MG/200 ML 400 MG/200 ML BAG IVPB SCH ×2 (14:59→17:43)
[2017-10-27] MEDS ORDERED: Clinimix E 5%-15% SOLUTION 2,000 ML with MVI, adult with vitamin K 10 ML, Trace Eleme... IVC SCH (17:00)
[2017-10-27] MEDS: Insulin LISPRO 300 UNITS/3 ML VIAL SQ SCH ×2 (17:44→23:24)
[2017-10-28] MEDS: Meropenem 1,000 MG in Water for inj. (sterile) 20 ML 10 ML IVP SCH (03:40)
[2017-10-28] MEDS: *HR* Heparin 5,000 UNIT/ML VIAL SQ SCH ×2 (04:42→17:55)
[2017-10-28 05:07] LABS: % Iron Saturation 15 % (15-50); Iron 37 mcg/dL (50-170); Transferrin 178 mg/dL (203-362)
[2017-10-28 05:08] LABS: BUN/Creatinine Ratio 73 (6-26); Blood Urea Nitrogen 36 mg/dL (8-23); Carbon Dioxide 19 mEq/L (23-29); Chloride 118 mEq/L (98-107); Glucose 136 mg/dL (70-105); Magnesium 1.7 mg/dL (1.6-2.6); Osmolality,Calculated 302 (280-300); Phosphorous 2.4 mg/dL (2.7-4.5); Potassium 3.2 mEq/L (3.5-5.1); Sodium 141 mEq/L (136-145); Triglycerides 126 mg/dL (< 150); eGFR For African Americans > 60 (> 60); eGFR For Non-African Americans > 60 (> 60)
[2017-10-28] MEDS: Insulin LISPRO 300 UNITS/3 ML VIAL SQ SCH ×3 (06:02→17:16)
--- NOTE | 2017-10-28 06:36 | Electrocardiograph Report ---
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
--- NOTE | 2017-10-28 07:03 | Internal Med Progress Note ---
<Kai Cunha - Last Filed: 10/28/17 14:40> Date of Encounter: 10/28/17 Time of Encounter: 08:35 - Assessment and plan (1) Sepsis Current Visit: Yes Status: Acute Assessment and plan: Sepsis secondary to UTI vs. Community Acquired Sepsis criteria present: Hypotension, tachycardia, tachypnea, leukopenia with PNA and UTI Patient received bolus fluids in the ED Broad spectrum antibiotics Vancomycin Day 2 Zosyn Day 2 Blood pressure continues to drop at this time I will bolus 1L fluid now We will watch closely and re-evaluate as needed 10/28 Severe sepsis, improved Per ID, continue fluconazole, restart zosyn Zosyn day 2 Fluconazole day 2 Blood cultures show Stephania parapsilosis Urine culture likely staph C. Diff is negative Consult ID, consult Opthalmology Qualifiers: Sepsis type: sepsis due to unspecified organism Qualified Code(s): A41.9 - Sepsis, unspecified organism (2) Abdominal pain Current Visit: Yes Status: Suspected Assessment and plan: Suspected abdominal pain patient cannot give specific history She has been having mucoid stool that is occult blood positive We will CT the abdomen for potential source of infection vs. ischemic bowel Qualifiers: Abdominal location: generalized Qualified Code(s): R10.84 - Generalized abdominal pain (3) UTI (urinary tract infection) Current Visit: Yes Status: Acute Assessment and plan: Presumptive staph on culture Patient is on Zosyn Qualifiers: Urinary tract infection type: site unspecified Hematuria presence: without hematuria Qualified Code(s): N39.0 - Urinary tract infection, site not specified (4) Pneumonia Current Visit: Yes Status: Acute Assessment and plan: CXR shows RLL pneumonia, Likely HCAP vs. Aspiration Patient does not have cough at this time On IV Antibiotics for coverage of HCAP Qualifiers: Pneumonia type: aspiration pneumonia Aspiration pneumonia type: unspecified Laterality: right Lung location: lower lobe of lung Qualified Code(s): J69.0 - Pneumonitis due to inhalation of food and vomit (5) Generalized pain Current Visit: Yes Status: Chronic Assessment and plan: Control pain (6) Progressive supranuclear palsy Current Visit: No Status: Chronic Assessment and plan: The patient has history of PNP Chronic trismus, neck contractures She is non-verbal We will continue to treat pain (7) Protein calorie malnutrition Current Visit: Yes Status: Chronic Assessment and plan: Consult to Nutrition for tube feed Qualifiers: Protein-calorie malnutrition severity: severe Qualified Code(s): E43 - Unspecified severe protein-calorie malnutrition (8) DVT prophylaxis Current Visit: No Status: Acute Assessment and plan: SQ Heparin - Subjective Interval history: The patient is lying in bed moaning at time of exam. She appears to be very distressed, and she squeezes hand on commands. When I asked her to squeeze my hand to confirm, she squeezed when asked if she was having stomach pain. Her chart does indicate that she had "copius loose mucoid stool" overnight. - Constitutional Vitals: Temp Pulse Resp BP Pulse Ox 97.4 F L 85 20 118/97 99 10/28/17 06:36 10/28/17 06:36 10/28/17 06:36 10/28/17 06:36 10/28/17 06:36 General appearance: Present: A&O X 0, mild distress Exam: Gen: Vitals noted. Moderately distressed HEENT: The patient has contractions and trismus. Cannot open mouth Neck: Supple. No adenopathy. Cardiac: RRR, no murmur, +S1/S2 Pulmonary: CTA bilaterally, no wheezes, rales or rhonchi, equal chest expansion. B/L Diminished Abdomen: soft, nontender, BS noted, no guarding Back: Nontender throughout. MSK: Substantial atrophy globally, contracted upper extremities Extremities: no BLE edema, nontender calf, no cyanosis or clubbing Neuro: Difficult to assess. Responds to questions but not in a logical way Internal Medicine: Result - Labs CBC & Chem 7: 10/28/17 09:45 10/28/17 04:12 Labs: BMP 10/28/17 04:12 Sodium 141 Potassium 3.2 L Chloride 118 H Carbon Dioxide 19 L BUN 36 H Creatinine 0.49 L Glucose 136 H Calcium 7.0 L - ABG Interpretation ABG results: PT/INR, D-dimer PT 13.4 Seconds (9.4-12.1) H 10/27/17 10:21 Consult Discharge Plan - Plan Referrals: NONE,PCP [Primary Care Provider] - <Adrian Mccartney H - Last Filed: 10/28/17 15:10> Date of Encounter: 10/28/17 - Constitutional Vitals: Temp Pulse Resp BP Pulse Ox 97.4 F L 72 18 106/64 96 10/28/17 14:47 10/28/17 14:47 10/28/17 14:47 10/28/17 14:47 10/28/17 14:47 Internal Medicine: Result - Labs CBC & Chem 7: 10/28/17 09:45 10/28/17 04:12 Labs: Short CBC 10/28/17 Range/Units 09:45 WBC 2.1 L (4.3-11.1) K/mcL Hgb 7.5 L (11.5-15.4) g/dL Hct 24.4 L (35.3-44.9) % Plt Count 86 L (140-400) K/mcL Neutrophils # 1.2 L (1.6-8.9) K/mcL BMP 10/28/17 04:12 Sodium 141 Potassium 3.2 L Chloride 118 H Carbon Dioxide 19 L BUN 36 H Creatinine 0.49 L Glucose 136 H Calcium 7.0 L - ABG Interpretation ABG results: PT/INR, D-dimer PT 13.4 Seconds (9.4-12.1) H 10/27/17 10:21 - Attending Attestation Severe sepsis secondary to healthcare associated pneumonia present upon admission, candidemia ( C parapsilosis) and UTI ( GPC) Continue Zosyn and Fluconazole per ID Aggressive hydration Aspiration precautions, dicontinued TPN I examined this patient and my medical decision-making was reviewed with the Resident Physician. I agree with the documented findings, disposition and treatment plan as described except to the extent set forth below.
[2017-10-28] MEDS ORDERED: Potassium Chloride 40 MEQ, Lidocaine 1% 2 ML in D5% in Water 500 ML IVPB ONE (07:06)
[2017-10-28] MEDS ORDERED: Aminoglycoside Consult 1 EACH MC ONE (09:00)
[2017-10-28] MEDS ORDERED: Fluconazole 400 MG/200 ML 400 MG/200 ML BAG IVPB SCH (09:00)
[2017-10-28 09:20] LABS: Acinetobacter baumannii by PCR Not Detected (Not Detect); Candida albicans by PCR Not Detected (Not Detect); Candida glabrata by PCR Not Detected (Not Detect); Candida krusei by PCR Not Detected (Not Detect); Candida parapsilosis by PCR ***DETECTED*** (Not Detect); Candida tropicalis by PCR Not Detected (Not Detect); Enterococcus by PCR Not Detected (Not Detect); Escherichia coli by PCR Not Detected (Not Detect); Klebsiella oxytoca by PCR Not Detected (Not Detect); Klebsiella pneumoniae by PCR Not Detected (Not Detect); Pseudomonas aeruginosa by PCR Not Detected (Not Detect); Serratia marcescens by PCR Not Detected (Not Detect); Staphylococcus aureus by PCR Not Detected (Not Detect); Streptococcus agalactiae(B)PCR Not Detected (Not Detect); Streptococcus by PCR Not Detected (Not Detect); Streptococcus pneumoniae PCR Not Detected (Not Detect); Streptococcus pyogenes (A) PCR Not Detected (Not Detect)
[2017-10-28 10:45] LABS: Hematocrit 24.4 % (35.3-44.9); Hemoglobin 7.5 g/dL (11.5-15.4); Immature Granulocytes % 0.5 % (0-4); Lymphocytes # 0.7 K/mcL (0.6-4.6); Lymphocytes % 31.4 %; Mean Corpuscular HGB Conc 30.7 g/dL (31.6-35.5); Mean Corpuscular Volume 84.4 fL (83.0-100.0); Mean Platelet Volume 11.4 fL (9.4-12.4); Monocytes # 0.2 K/mcL (0.0-1.3); Monocytes % 8.1 %; Neutrophils # 1.2 K/mcL (1.6-8.9); Platelet Count 86 K/mcL (140-400); Red Blood Count 2.89 M/mcL (3.82-4.97); Red Cell Distribution Width 15.9 % (11.5-14.5)
[2017-10-28] MEDS ORDERED: Potassium Phosphate 44 MEQ in 0.9 % Sodium Chloride 250 ML IVPB ONE (10:48)
--- NOTE | 2017-10-28 10:58 | Infectious Disease Consult ---
Date of Encounter: 10/28/17 Time of Encounter: 10:56 Assessment and Plan (1) Sepsis Status: Acute Assessment and plan: The patient had severe sepsis on admission: four SIRS criteria plus elevated LFTs and thrombocytopenia. She developed hypotension responsive to IV fluids after admission. Likely secondary to candidemia, UTI, and PNA. Improved. Tachycardia and tachypnea and hypotension have resolved. She has been afebrile. She continues to have worsening leukopenia and thrombocytopenia. LFTs have bot been repeated. Blood cultures drawn 10/26/17 are positive 2/2 sets for C. parapsilosis per the PCR (1 drawn from PICC and 1 drawn from peripheral stick). Lactic acid was normal. The patient received 3 liters of IV fluids. Qualifiers: Sepsis type: sepsis due to unspecified organism Qualified Code(s): A41.9 - Sepsis, unspecified organism (2) Candidemia Status: Acute Assessment and plan: Causative organism: C. parapsilosis per PCR. Source likely the patient's PICC line and TPN. Blood cultures drawn 10/26/17 are positive 2/2 sets for C. parapsilosis (1 drawn from PICC and 1 from peripheral stick) per PCR. Sensitivities are pending. Recommend removing PICC line and making sure blood cultures are negative x 48 hours before re-insertion of a new one. This will require temporary discontinuation of the patient's TPN since we will need to avoid re-insertion of a PICC or other central venous access until candidemia is cleared. Given the patient's frail state, I'm not sure that continuing TPN is the best option for the patient when she has a functioning GI system. I spoke with the tangled yarn spool straightener team who states the patient's POA has refused a PEG tube in the past, but according to the nurse's notes, it appears she might be open to discussing a PEG tube at this point. Recommend repeating blood cultures x 2 sets once PICC line is removed. Continue fluconazole, but decrease to 200mg IV daily. I discussed the patient's creatinine clearance with Xiomy Powers, who stated that although the patient' s creatinine clearance calculates out to about 60, it is likely not that high given the patient's diminished health and small body mass and is probably actually around 40. Because of this, recommend decreasing dose. She did get a loading dose of 800mg IV on 10/26/17. Will need opthalmology evaluation. Duration of treatment depends on the clinical picture, but likely 14 days from the first set of negative blood cultures. Monitor renal and liver function and dose-adjust antibiotics. (3) Pneumonia Status: Acute Assessment and plan: Causative organism unclear. Location: RLL Aspiration vs. HCAP. The patient is at risk for MDR pathogens due to her frail state and living in an ECF, but she has no history of this. The patient's mental status puts at risk for silent aspiration, but she is unable to undergo swallow evaluation and she has been strictly NPO for several months now. Check S. pneumo and Legionella UAT. Discontinue Vancomycin. Low index of suspicion for MRSA. Discontinue Levaquin. Discontinue Meropenem. Re-start Zosyn 3.375 grams IV Q8H. Duration of treatment depends on the clinical picture. Monitor renal function and dose-adjust antibiotics. Qualifiers: Pneumonia type: aspiration pneumonia Aspiration pneumonia type: unspecified Laterality: right Lung location: lower lobe of lung Qualified Code(s): J69.0 - Pneumonitis due to inhalation of food and vomit (4) UTI (urinary tract infection) Status: Acute Assessment and plan: ASB vs true UTI. The patient's mental status precludes her ability to tell me if she was having urinary symptoms. Causative organism unclear, but the gram stain shows GPC --> likely Enterococcus. Await final ID and sensitivities. Re-start Zosyn as above. De-escalate antibiotics if/when able. Qualifiers: Urinary tract infection type: site unspecified Hematuria presence: without hematuria Qualified Code(s): N39.0 - Urinary tract infection, site not specified (5) Elevated LFTs Status: Acute Assessment and plan: Likely secondary to sepsis. Repeat LFTs. Monitor closely while on fluconazole. (6) Thrombocytopenia Status: Acute Assessment and plan: Likely secondary to sepsis. No acute bleeding noted on exam. Continue to trend. Management per the primary team. (7) Anemia Status: Acute Assessment and plan: FOBT +. Further workup and evaluation per the primary team. Qualifiers: Anemia type: other cause Other causes of anemia: other cause, not classified Qualified Code(s): D64.89 - Other specified anemias (8) Hypokalemia Status: Acute Assessment and plan: K 3.2 this morning. Replacement per the primary team. (9) Trismus Status: Acute Assessment and plan: Secondary to supranuclear palsy. (10) Protein calorie malnutrition Status: Chronic Assessment and plan: The patient is unable to take anything PO due to trismus and the patient's POA has refused PEG tube in the past. On chronic TPN. Nutrition team has been consulted and following. Qualifiers: Protein-calorie malnutrition severity: severe Qualified Code(s): E43 - Unspecified severe protein-calorie malnutrition (11) Progressive supranuclear palsy Status: Chronic Infectious Disease HPI - Data of Consult Patient: new to practice Consult date: 10/28/17 Requesting Physician: Leslie Paredes Primary Care Provider: PCP NONE - Consult Narrative Reason for consult: Sepsis, candidemia, UTI, PNA History of present illness: Ms. Miguel is a 72 year old female with a past medical history of supranuclear palsy and pulmonary embolus. The patient was admitted to the hospital 10/26/17 for sepsis, UTI, and PNA. We are consulted 10/28/17 for further recommendations regarding candidemia, UTI, and pneumonia. Briefly, the patient is a 72-year-old female with past medical history as stated above. The patient has supranuclear palsy that has progressed to the point where she is nonverbal and unable to provide me with any information regarding the events leading up to her hospitalization. As no family at the bedside, therefore, most of the information is obtained from the medical record. Apparently, the patient was transferred [facility] with complaints of fever, tachycardia, and decreased mental status. The patient has a baseline of being able to follow some simple commands, but apparently this was altered when she originally came in. Upon arrival to the ER, the patient was febrile tachycardic and tachypneic and was noted to be hypoxic. She also had leukopenia and thrombocytopenia.. Lactic acid was normal, but her AST, ALT, and alkaline phosphatase were mildly elevated. She had a urinalysis obtained via catheterization that was positive for pyuria and a urine culture is growing gram-positive cocci. Should blood cultures obtained 2 sets, one from a peripheral stick and one from her PICC line that are both +2 out of 2 sets for Stephania peritoneal looses per the PCR. She did chest x-ray that showed a large hiatal hernia and possible right lower lobe pneumonia. The patient was given a dose of IV Zosyn and IV clindamycin in the ER and admitted to the hospital for further evaluation. Upon admission, the patient's antibiotics were transitioned to Zosyn only. She continued to have leukopenia and developed hypotension, therefore, her antibiotics were transitioned to vancomycin, meropenem, and Levaquin. Her blood cultures came back positive she was started on fluconazole and given a loading dose of 800 mg with a maintenance dose of 400 mg daily. She continues to have worsening leukopenia today. Her hypotension, tachycardia, and fevers have resolved. We have been asked to evaluate and make further recommendations. CC: Leslie Paredes Past Med Surg Social Fam HX - Past Medical History Source: old records reviewed, nursing notes reviewed Medical history: pulmonary embolus, other (Supranuclear palsy) Psychiatric history: no psych history - Past Surgical History Surgical History: appendectomy, orthopedic, other - Social History Smoking Status: Never smoker Smokeless Tobacco Status: No Alcohol use: none Drug use: none - Family History Mother History Unknown: Yes Infectious Disease-CN:Meds Dextrose Gel [Gluctose] 15 gm PO ONCE PRN gel..gram. 09/06/17 [Rx] Glucagon, Human Recombinant [Glucagen] 1 mg IM ONCE PRN vial 09/06/17 [Rx] Lacri-Lube [Lacri-lube] 1 appl BOTH EYES BID tube 09/06/17 [Rx] Acetaminophen [Tylenol 650mg SUPP] 650 mg RC Q4H PRN 10/26/17 [History] Dextrose 10 % in Water [Dextrose 10%-Water IV Solution] 1,000 ml IV AD 10/26/17 [History] Heparin 5,000 unit SQ Q12H 10/26/17 [History] Morphine Oral CONC [Roxanol] 5 mg SL Q4H PRN 10/26/17 [History] Mvi, Adult No.4, Vit K, 1 of 2 [Infuvite Adult Vial 1] 5 ml IV AD 10/26/17 [ History] Mvi, Adult No.4, Vit K, 2 of 2 [Infuvite Adult Vial 2] 5 ml IV AD 10/26/17 [ History] Ondansetron [Zofran] 4 mg IM Q4H PRN 10/26/17 [History] Polyvinyl Alcohol [Artificial Tears] 1 drop BOTH EYES Q4H PRN 10/26/17 [History] Tpn 3,000 ml IV DAILY 10/26/17 [History] 3 Allergy/AdvReac Type Severity Reaction Status Date / Time codeine Allergy Itching Verified 10/26/17 18:24 ROS unobtainable: due to mental status Exam - Constitutional Vitals: Temp Pulse Resp BP Pulse Ox 97.4 F L 85 20 118/97 99 10/28/17 06:36 10/28/17 06:36 10/28/17 06:36 10/28/17 06:36 10/28/17 06:36 General appearance: cooperative, no acute distress, thin - Head Head exam: Present: atraumatic, normal inspection, normocephalic - Eye Eye exam: Present: normal appearance, PERRL Pupils: Present: normal accommodation - ENT Additional comments: Unable to assess due to trismus. - Respiratory Respiratory exam: Present: decreased breath sounds (Bilateral bases). Absent: rales, respiratory distress, rhonchi, wheezes - Cardiovascular Cardiovascular exam: Present: RRR, +S1, +S2 - GI/Abdominal GI/Abdominal exam: Present: normal bowel sounds, soft, tenderness (Groans with palpation.). Absent: distended Additional comments: Ocampo catheter noted to be draining dark yellow urine. - Extremities Exam Extremities exam: Absent: joint swelling, pedal edema, tenderness - Neurological Exam Neurological exam: Present: altered (Eyes open, follows commands, non-verbal.). Absent: strengths equal and symetr throughout (Right > Left) - Skin Skin exam: Present: dry, intact, normal color, warm - Additional findings Additional findings: PICC line noted to the RUE with transparent dressing C/D/I. Infectious Disease CN: Results - Labs CBC & Chem 7: 10/28/17 09:45 10/28/17 04:12 Cultures: Cultures 10/26/17 18:49 Blood Culture - Preliminary Peripheral Venipuncture Yeast Species 10/26/17 18:49 Blood Culture - Preliminary Peripheral Venipuncture Yeast Species 10/26/17 18:42 Urine Culture - Preliminary Urine,Catheterized Gram Positive Cocci Serology: Serology 10/27/17 Range/Units 23:48 Stool Occult Blood Positive A (Negative) Consult Discharge Plan - Plan Referrals: NONE,PCP [Primary Care Provider] - - Attending Attestation I examined this patient and my medical decision-making was reviewed with the Resident Physician. I agree with the documented findings, disposition and treatment plan as described except to the extent set forth below. This is an addendum to original report dictated by Merly Layne CNP. Please refer to Gurinder sofia for full detail. Patient is 72-year-old woman with extensive past medical history mentioned below including supranuclear palsy, who apparently was admitted to the hospital on October 26 with sepsis, UTI and pneumonia. Patient is nonverbal so all the information was taken from medical record. The patient apparently was transferred [facility] the [facility] for fever tachycardia and decreased mental status. Since arrival to the ER patient was febrile, tachycardic and tachypneic and hypoxic. Patient was also noted to have leukopenia and pancytopenia lactic acid was checked and came back normal. LFTs were mildly elevated. Patient apparently is on TPN through a PICC line in the right upper extremity. Imaging was done on the patient a chest x-ray showed a large hiatal hernia and possible right lower lobe pneumonia. Patient was started empirically on Zosyn and clindamycin. Blood cultures were obtained and it came back positive for yeast and the PCR picked up Stephania parapsilosis. Currently patient has contractures laying in bed eyes open does not respond does not follow command. She has been moaning by the time he does close to her baseline. Physical exam is very limited but lungs sound okay with air sounds audible both lung ramirez. Patients heart is tachycardic but otherwise okay. Abdomen no guarding. Skin no decubitus ulcer noted. Extremities patient has muscle wasting and contractures. Patient has a PICC line in the left upper extremity that has not been DCd and has a power glide in the RIGHT upper extremity. At this point I agree with fluconazole, creatinine clearance is about 47 so I will decrease the dose to 200 mg IV daily Family agree to a PICC tube so the PICC line will be removed and TPN will be stopped Repeat blood cultures to make sure candidemia resolved Patient will need ophthalmology evaluation I notified the hospitalist team Urine has gram-positive cocci and my index of suspicion is enterococcus. DC vancomycin, DC meropenem and DC levofloxacin and start the patient on Zosyn Await cultures to finalize Monitor labs and for drug toxicity
[2017-10-28 11:09] LABS: Platelet Estimate Decreased (Normal)
[2017-10-28 11:10] LABS: Anisocytosis 1+ (Not Present)
[2017-10-28] MEDS ORDERED: Acetaminophen IV 1,000 MG/100 ML INFUS..BTL IVPB ONE (12:03)
[2017-10-28] MEDS ORDERED: Lidocaine -MPF 1% 2 ML VIAL ID PRN (12:08)
[2017-10-28] MEDS ORDERED: Acetaminophen 325 MG RECTAL SUPP RC PRN (14:58)
--- NOTE | 2017-10-28 16:45 | Electrocardiograph Report ---
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
[2017-10-28] MEDS: Piperacillin/Tazobactam 3.375 GM in 0.9 % Sodium Chloride Mini Bag 100 ML IVPB SCH (17:01)
[2017-10-28 17:36] LABS: Alanine Aminotransferase 84 Units/L (7-52); Albumin 2.4 g/dL (3.5-5.7); Albumin/Globulin Ratio 0.8 (1.1-2.2); Alkaline Phosphatase 112 Units/L (34-104); Aspartate Amino Transferase 80 Units/L (13-39); Bilirubin,Direct 0.2 mg/dL (0.0-0.2); Bilirubin,Indirect 0.3 mg/dL (0.0-1.2); Bilirubin,Total 0.5 mg/dL (0.3-1.0); Globulin 3.2 g/dL (2.4-3.5); Total Protein 5.6 g/dL (6.4-8.9)
[2017-10-28] MEDS: D10% in Water 500 ML IVC PRN (20:31)
[2017-10-28] MEDS ORDERED: Ketorolac 15 MG/ML VIAL IVP ONE (20:51)
[2017-10-29] MEDS: Insulin LISPRO 300 UNITS/3 ML VIAL SQ SCH ×5 (00:59→23:55)
[2017-10-29] MEDS: Piperacillin/Tazobactam 3.375 GM in 0.9 % Sodium Chloride Mini Bag 100 ML IVPB SCH ×4 (01:01→23:52)
[2017-10-29] MEDS: MORPHINE SUL Oral CONC 10 MG/0.5 ML ORAL.SYG SL PRN ×6 (01:40→22:20)
[2017-10-29 04:29] LABS: Basophils % 0.5 %; Eosinophils % 1.5 %; Immature Granulocytes % 0.5 % (0-4); Mean Corpuscular HGB Conc 30.9 g/dL (31.6-35.5); Red Blood Count 2.84 M/mcL (3.82-4.97)
[2017-10-29 04:32] LABS: Hematocrit 23.6 % (35.3-44.9); Hemoglobin 7.3 g/dL (11.5-15.4); Immature Platelets 1.1 % (1.1-6.1); Lymphocytes # 0.7 K/mcL (0.6-4.6); Lymphocytes % 33.5 %; Mean Corpuscular Hemoglobin 25.7 pg (28.0-33.3); Mean Corpuscular Volume 83.1 fL (83.0-100.0); Mean Platelet Volume 10.6 fL (9.4-12.4); Monocytes # 0.2 K/mcL (0.0-1.3); Monocytes % 9.5 %; Neutrophils # 1.1 K/mcL (1.6-8.9); Segmented Neutrophils % 54.5 %
[2017-10-29 04:33] LABS: Platelet Count 91 K/mcL (140-400)
[2017-10-29 04:54] LABS: BUN/Creatinine Ratio 55 (6-26); Blood Urea Nitrogen 26 mg/dL (8-23); Calcium 7.2 mg/dL (8.6-10.3); Carbon Dioxide 18 mEq/L (23-29); Chloride 118 mEq/L (98-107); Glucose 118 mg/dL (70-105); Osmolality,Calculated 298 (280-300); Potassium 3.3 mEq/L (3.5-5.1); Sodium 141 mEq/L (136-145); eGFR For African Americans > 60 (> 60); eGFR For Non-African Americans > 60 (> 60)
[2017-10-29 04:59] LABS: Hypochromasia Present (Not Present); Platelet Estimate Decreased (Normal)
[2017-10-29] MEDS: *HR* Heparin 5,000 UNIT/ML VIAL SQ SCH (05:20)
[2017-10-29] MEDS: D10% in Water 500 ML IVC PRN (05:29)
--- NOTE | 2017-10-29 07:06 | Internal Med Progress Note ---
<Kai Cunha - Last Filed: 10/29/17 14:17> Date of Encounter: 10/29/17 Time of Encounter: 09:45 - Assessment and plan (1) Sepsis Current Visit: Yes Status: Acute Assessment and plan: Sepsis secondary to UTI vs. Community Acquired Sepsis criteria present: Hypotension, tachycardia, tachypnea, leukopenia with PNA and UTI Patient received bolus fluids in the ED Broad spectrum antibiotics Vancomycin Day 2 Zosyn Day 2 Blood pressure continues to drop at this time I will bolus 1L fluid now We will watch closely and re-evaluate as needed 10/28 Severe sepsis, improved Per ID, continue fluconazole, restart zosyn Zosyn day 2 Fluconazole day 2 Blood cultures show Stephania parapsilosis Urine culture likely staph C. Diff is negative Consult ID, consult Opthalmology 10/29 ID is on board Patient seems to be improving clinically Continue current plan Zosyn day 3 Fluconazole day 3 Qualifiers: Sepsis type: sepsis due to unspecified organism Qualified Code(s): A41.9 - Sepsis, unspecified organism (2) Anemia Current Visit: Yes Status: Acute Assessment and plan: Likely secondary to poor nutrition status and blood loss Stool positive for occult blood We will give one unit of blood today Monitor Qualifiers: Anemia type: other cause Other causes of anemia: other cause, not classified Qualified Code(s): D64.89 - Other specified anemias (3) Abdominal pain Current Visit: Yes Status: Suspected Assessment and plan: Suspected abdominal pain patient cannot give specific history She has been having mucoid stool that is occult blood positive We will CT the abdomen for potential source of infection vs. ischemic bowel 10/[address] shows Massive rectal stool burden. There is moderate free fluid in the pelvis. Proximal colonic wall thickening is suspected. Findings may indicate colitis. Significant splenomegaly. Several low-density lesions in the spleen are nonspecific. Portal vein enlargement may indicate portal hypertension. Small-moderate pleural effusions. Lower lobe consolidation and volume loss, atelectasis versus pneumonia. Periportal edema versus mild intrahepatic biliary ductal dilation. Recieved an enema in the evening and had large BM We will give another enema today, monitor for pain Currently being treated with Zosyn, which will cover potential abdominal infections Qualifiers: Abdominal location: generalized Qualified Code(s): R10.84 - Generalized abdominal pain (4) UTI (urinary tract infection) Current Visit: Yes Status: Acute Assessment and plan: Presumptive staph on culture Patient is on Zosyn Qualifiers: Urinary tract infection type: site unspecified Hematuria presence: without hematuria Qualified Code(s): N39.0 - Urinary tract infection, site not specified (5) Pneumonia Current Visit: Yes Status: Acute Assessment and plan: CXR shows RLL pneumonia, Likely HCAP vs. Aspiration Patient does not have cough at this time On IV Antibiotics for coverage of HCAP Qualifiers: Pneumonia type: aspiration pneumonia Aspiration pneumonia type: unspecified Laterality: right Lung location: lower lobe of lung Qualified Code(s): J69.0 - Pneumonitis due to inhalation of food and vomit (6) Generalized pain Current Visit: Yes Status: Chronic Assessment and plan: Control pain (7) Progressive supranuclear palsy Current Visit: No Status: Chronic Assessment and plan: The patient has history of PNP Chronic trismus, neck contractures She is non-verbal We will continue to treat pain (8) Protein calorie malnutrition Current Visit: Yes Status: Chronic Assessment and plan: Transitioned patient to D10 due to PICC removal Consider PEG in future Qualifiers: Protein-calorie malnutrition severity: severe Qualified Code(s): E43 - Unspecified severe protein-calorie malnutrition (9) DVT prophylaxis Current Visit: No Status: Acute Assessment and plan: SQ Heparin held due to occult blood in stool with low hemoglobin Start SCDs - Subjective Interval history: The patient is lying in bed moaning at time of exam. She appears to be very distressed, and she squeezes hand on commands. When I asked her to squeeze my hand to confirm, she squeezed when asked if she was having stomach pain. Her chart does indicate that she had "copius loose mucoid stool" overnight. - Constitutional Vitals: Temp Pulse Resp BP Pulse Ox 96.7 F L 67 18 108/67 100 10/29/17 03:49 10/29/17 06:38 10/29/17 06:38 10/29/17 06:38 10/29/17 06:38 General appearance: Present: A&O X 0, mild distress Exam: Gen: Vitals noted. Moderately distressed HEENT: The patient has contractions and trismus. Cannot open mouth Neck: Supple. No adenopathy. Cardiac: RRR, no murmur, +S1/S2 Pulmonary: CTA bilaterally, no wheezes, rales or rhonchi, equal chest expansion. B/L Diminished Abdomen: soft, nontender, BS noted, no guarding Back: Nontender throughout. MSK: Substantial atrophy globally, contracted upper extremities Extremities: no BLE edema, nontender calf, no cyanosis or clubbing Neuro: Difficult to assess. Responds to questions but not in a logical way Internal Medicine: Result - Labs CBC & Chem 7: 10/29/17 03:57 10/29/17 03:57 Labs: Short CBC 10/28/17 10/29/17 Range/Units 09:45 03:57 WBC 2.1 L 2.0 L (4.3-11.1) K/mcL Hgb 7.5 L 7.3 L (11.5-15.4) g/dL Hct 24.4 L 23.6 L (35.3-44.9) % Plt Count 86 L 91 L (140-400) K/mcL Neutrophils # 1.2 L 1.1 L (1.6-8.9) K/mcL BMP 10/28/17 10/29/17 04:12 03:57 Sodium 141 141 Potassium 3.2 L 3.3 L Chloride 118 H 118 H Carbon Dioxide 19 L 18 L BUN 36 H 26 H Creatinine 0.49 L 0.47 L Glucose 136 H 118 H Calcium 7.0 L 7.2 L Liver Function 10/28/17 Range/Units 04:12 Total Bilirubin 0.5 (0.3-1.0) mg/dL Direct Bilirubin 0.2 (0.0-0.2) mg/dL AST 80 H (13-39) Units/L ALT 84 H (7-52) Units/L Alkaline Phosphatase 112 H (34-104) Units/L Albumin 2.4 L (3.5-5.7) g/dL - ABG Interpretation ABG results: PT/INR, D-dimer PT 13.4 Seconds (9.4-12.1) H 10/27/17 10:21 - Impressions Impressions Abdomen/Pelvis CT 10/28/17 14:38 IMPRESSION: Examination limited by motion artifact and patient arm positioning. Massive rectal stool burden. There is moderate free fluid in the pelvis. Proximal colonic wall thickening is suspected. Findings may indicate colitis. Significant splenomegaly. Several low-density lesions in the spleen are nonspecific. Portal vein enlargement may indicate portal hypertension. Small-moderate pleural effusions. Lower lobe consolidation and volume loss, atelectasis versus pneumonia. Periportal edema versus mild intrahepatic biliary ductal dilation. D/ / Westley Mckoy MD / Westley Mckoy MD Interpreting Provider: Westley Mckoy MD Consult Discharge Plan - Plan Referrals: NONE,PCP [Primary Care Provider] - <Adrian Mccartney - Last Filed: 10/29/17 15:52> Date of Encounter: 10/29/17 - Constitutional Vitals: Temp Pulse Resp BP Pulse Ox 98.5 F 72 28 122/76 98 10/29/17 13:57 10/29/17 14:05 10/29/17 14:05 10/29/17 14:05 10/29/17 13:57 Internal Medicine: Result - Labs CBC & Chem 7: 10/29/17 03:57 10/29/17 03:57 Labs: Short CBC 10/29/17 Range/Units 03:57 WBC 2.0 L (4.3-11.1) K/mcL Hgb 7.3 L (11.5-15.4) g/dL Hct 23.6 L (35.3-44.9) % Plt Count 91 L (140-400) K/mcL Neutrophils # 1.1 L (1.6-8.9) K/mcL BMP 10/28/17 10/29/17 04:12 03:57 Sodium 141 141 Potassium 3.2 L 3.3 L Chloride 118 H 118 H Carbon Dioxide 19 L 18 L BUN 36 H 26 H Creatinine 0.49 L 0.47 L Glucose 136 H 118 H Calcium 7.0 L 7.2 L Liver Function 10/28/17 Range/Units 04:12 Total Bilirubin 0.5 (0.3-1.0) mg/dL Direct Bilirubin 0.2 (0.0-0.2) mg/dL AST 80 H (13-39) Units/L ALT 84 H (7-52) Units/L Alkaline Phosphatase 112 H (34-104) Units/L Albumin 2.4 L (3.5-5.7) g/dL - ABG Interpretation ABG results: PT/INR, D-dimer PT 13.4 Seconds (9.4-12.1) H 10/27/17 10:21 - Impressions Impressions Abdomen/Pelvis CT 10/28/17 14:38 IMPRESSION: Examination limited by motion artifact and patient arm positioning. Massive rectal stool burden. There is moderate free fluid in the pelvis. Proximal colonic wall thickening is suspected. Findings may indicate colitis. Significant splenomegaly. Several low-density lesions in the spleen are nonspecific. Portal vein enlargement may indicate portal hypertension. Small-moderate pleural effusions. Lower lobe consolidation and volume loss, atelectasis versus pneumonia. Periportal edema versus mild intrahepatic biliary ductal dilation. D/ / Westley Mckoy MD / Westley Mckoy MD Interpreting Provider: Westley Mckoy MD - Attending Attestation Severe sepsis secondary to healthcare associated pneumonia present upon admission, candidemia ( C parapsilosis) and UTI ( MRSA) Continue Zosyn and Fluconazole day #2 restart IV vancomycin hydration Aspiration precautions, discontinued TPN I examined this patient and my medical decision-making was reviewed with the Resident Physician. I agree with the documented findings, disposition and treatment plan as described except to the extent set forth below.
[2017-10-29] MEDS ORDERED: Milk and Molasses Enema 200 ML RC ONE (08:01)
[2017-10-29] MEDS ORDERED: Potassium Chloride 40 MEQ, Lidocaine 1% 2 ML in D5% in Water 500 ML IVPB ONE (08:02)
[2017-10-29] MEDS: Fluconazole 200 MG/100 ML 200 MG/100 ML BAG IVPB SCH (08:57)
[2017-10-29] MEDS ORDERED: Furosemide 20 MG/2 ML VIAL IVP ONE (10:14)
[2017-10-29] MEDS ORDERED: Potassium Phosphate 44 MEQ in 0.9 % Sodium Chloride 250 ML IVPB ONE (11:03)
--- NOTE | 2017-10-29 11:28 | Infectious Disease Progress No ---
Date of Encounter: 10/29/17 Time of Encounter: 11:26 - Assessment and Plan (1) Sepsis Current Visit: Yes Status: Acute The patient had severe sepsis on admission: four SIRS criteria plus elevated LFTs and thrombocytopenia. She developed hypotension responsive to IV fluids after admission. Likely secondary to candidemia, UTI, and PNA. Improved. Tachycardia and tachypnea and hypotension have resolved. She has been afebrile. She continues to have worsening leukopenia. Thrombocytopenia improved. Blood cultures drawn 10/26/17 are positive 2/2 sets for C. parapsilosis per the PCR (1 drawn from PICC and 1 drawn from peripheral stick). Repeat blood cultures x 2 sets now. Qualifiers: Sepsis type: sepsis due to unspecified organism Qualified Code(s): A41.9 - Sepsis, unspecified organism (2) Candidemia Current Visit: Yes Status: Acute Causative organism: C. parapsilosis. Source likely the patient's PICC line and TPN. Blood cultures drawn 10/26/17 are positive 2/2 sets for C. parapsilosis (1 drawn from PICC and 1 from peripheral stick). Sensitivities are pending. PICC line removed 10/28/17. Given the patient's frail state, I'm not sure that continuing TPN is the best option for the patient when she has a functioning GI system. I spoke with the station detective team who states the patient's POA has refused a PEG tube in the past, but according to the nurse's notes, it appears she might be open to discussing a PEG tube at this point. Recommend repeating blood cultures x 2 sets now. Continue fluconazole 200mg IV daily. Will need opthalmology evaluation. Duration of treatment depends on the clinical picture, but likely 14 days from the first set of negative blood cultures. Monitor renal and liver function and dose-adjust antibiotics. (3) Pneumonia Current Visit: Yes Status: Acute Causative organism unclear. Location: RLL Aspiration vs. HCAP. The patient is at risk for MDR pathogens due to her frail state and living in an ECF, but she has no history of this. The patient's mental status puts at risk for silent aspiration, but she is unable to undergo swallow evaluation and she has been strictly NPO for several months now. Check S. pneumo and Legionella UAT. Continue Zosyn 3.375 grams IV Q8H. Duration of treatment depends on the clinical picture. Monitor renal function and dose-adjust antibiotics. Qualifiers: Pneumonia type: aspiration pneumonia Aspiration pneumonia type: unspecified Laterality: right Lung location: lower lobe of lung Qualified Code(s): J69.0 - Pneumonitis due to inhalation of food and vomit (4) UTI (urinary tract infection) Current Visit: Yes Status: Acute ASB vs true UTI. The patient's mental status precludes her ability to tell me if she was having urinary symptoms. Causative organism unclear, but the gram stain shows GPC --> likely Enterococcus. Await final ID and sensitivities. Continue Zosyn 3.375 grams IV daily for now. De-escalate antibiotics if/when able. Qualifiers: Urinary tract infection type: site unspecified Hematuria presence: without hematuria Qualified Code(s): N39.0 - Urinary tract infection, site not specified (5) Abdominal pain Current Visit: Yes Status: Suspected CT abdomen and pelvis completed 10/28/17 showed massive rectal stool burden, proximal colonic wall thickening concerning for colitis, significant splenomegaly with several low-density lesions in the spleen that are non- specific as well as small-moderate pleural effusions with lower lobe consolidation and volume loss likely atelectasis vs. PNA, and periportal edema vs. mild intra-hepatic biliary ductal dilatation. Constipation management per the primary team. Continue Zosyn for possible colitis. Consider GI consult for possible biliary ductal dilatation. Pain management per the primary team. Qualifiers: Abdominal location: generalized Qualified Code(s): R10.84 - Generalized abdominal pain (6) Elevated LFTs Current Visit: Yes Status: Acute Likely secondary to sepsis. Repeat LFTs are stable. Monitor closely while on fluconazole. (7) Thrombocytopenia Current Visit: Yes Status: Acute Improved. Likely secondary to sepsis. No acute bleeding noted on exam. Continue to trend. Management per the primary team. (8) Anemia Current Visit: Yes Status: Acute Etiology unclear: poor nutrition + GI loss. FOBT +. Hgb down to 7.3. Consider GI consult. Further workup and evaluation per the primary team. 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 (11) Protein calorie malnutrition Current Visit: Yes Status: Chronic The patient is unable to take anything PO due to trismus and the patient's POA has refused PEG tube in the past. On chronic TPN. Nutrition team has been consulted and following. Qualifiers: Protein-calorie malnutrition severity: severe Qualified Code(s): E43 - Unspecified severe protein-calorie malnutrition (12) Progressive supranuclear palsy Current Visit: No Status: Chronic Consider palliative care consult. - Subjective Interval history: Patient seen and examined. No acute events noted overnight. Patient lying in bed , groaning. Non-verbal. Squeezes hand on command. Discussed with nursing. Patient received enema last night and this morning with good results. States she just gave the patient pain medication. Nothing has been decided about further nutrition for the patient since PICC line has been removed. Infect Dis PN-Objective Data - Labs CBC & Chem 7: 10/29/17 03:57 10/29/17 03:57 Labs: Laboratory Results - last 24 hr 10/27/17 10/27/17 10/28/17 19:59 23:24 04:12 WBC RBC Hgb Hct MCV MCH MCHC RDW Plt Count MPV Immature Gran % Seg Neutrophils % Lymphocytes % Monocytes % Eosinophils % Basophils % Neutrophils # Lymphocytes # Monocytes # Eosinophils # Basophils # Platelet Estimate Immature Plt Fraction Hypochromasia Sodium 141 Potassium 3.2 L Chloride 118 H Carbon Dioxide 19 L BUN 36 H Creatinine 0.49 L Est GFR ( Amer) > 60 Est GFR (Non-Af Amer) > 60 BUN/Creatinine Ratio 73 H Glucose 136 H POC Glucose 119 H 134 H Calculated Osmolality 302 H Calcium 7.0 L Phosphorus 2.4 L Magnesium 1.7 Total Bilirubin 0.5 Direct Bilirubin 0.2 Indirect Bilirubin 0.3 AST 80 H ALT 84 H Alkaline Phosphatase 112 H Serum Total Protein 5.6 L Albumin 2.4 L Globulin 3.2 Albumin/Globulin Ratio 0.8 L Triglycerides 126 Stl C. diff Tox B Gene Vancomycin Trough 10/28/17 10/28/17 10/28/17 04:59 09:45 10:15 WBC RBC Hgb Hct MCV MCH MCHC RDW Plt Count MPV Immature Gran % Seg Neutrophils % Lymphocytes % Monocytes % Eosinophils % Basophils % Neutrophils # Lymphocytes # Monocytes # Eosinophils # Basophils # Platelet Estimate Immature Plt Fraction Hypochromasia Sodium Potassium Chloride Carbon Dioxide BUN Creatinine Est GFR ( Amer) Est GFR (Non-Af Amer) BUN/Creatinine Ratio Glucose POC Glucose 134 H Calculated Osmolality Calcium Phosphorus Magnesium Total Bilirubin Direct Bilirubin Indirect Bilirubin AST ALT Alkaline Phosphatase Serum Total Protein Albumin Globulin Albumin/Globulin Ratio Triglycerides Stl C. diff Tox B Gene Negative Vancomycin Trough 12.4 10/28/17 10/28/17 10/28/17 11:11 16:36 20:20 WBC RBC Hgb Hct MCV MCH MCHC RDW Plt Count MPV Immature Gran % Seg Neutrophils % Lymphocytes % Monocytes % Eosinophils % Basophils % Neutrophils # Lymphocytes # Monocytes # Eosinophils # Basophils # Platelet Estimate Immature Plt Fraction Hypochromasia Sodium Potassium Chloride Carbon Dioxide BUN Creatinine Est GFR ( Amer) Est GFR (Non-Af Amer) BUN/Creatinine Ratio Glucose POC Glucose 142 H 124 H 111 H Calculated Osmolality Calcium Phosphorus Magnesium Total Bilirubin Direct Bilirubin Indirect Bilirubin AST ALT Alkaline Phosphatase Serum Total Protein Albumin Globulin Albumin/Globulin Ratio Triglycerides Stl C. diff Tox B Gene Vancomycin Trough 10/29/17 10/29/17 10/29/17 00:13 03:57 03:57 WBC 2.0 L RBC 2.84 L Hgb 7.3 L Hct 23.6 L MCV 83.1 MCH 25.7 L MCHC 30.9 L RDW 16.0 H Plt Count 91 L MPV 10.6 Immature Gran % 0.5 Seg Neutrophils % 54.5 Lymphocytes % 33.5 Monocytes % 9.5 Eosinophils % 1.5 Basophils % 0.5 Neutrophils # 1.1 L Lymphocytes # 0.7 Monocytes # 0.2 Eosinophils # 0.0 Basophils # 0.0 Platelet Estimate Decreased L Immature Plt Fraction 1.1 Hypochromasia Present A Sodium 141 Potassium 3.3 L Chloride 118 H Carbon Dioxide 18 L BUN 26 H Creatinine 0.47 L Est GFR ( Amer) > 60 Est GFR (Non-Af Amer) > 60 BUN/Creatinine Ratio 55 H Glucose 118 H POC Glucose 116 H Calculated Osmolality 298 Calcium 7.2 L Phosphorus Magnesium Total Bilirubin Direct Bilirubin Indirect Bilirubin AST ALT Alkaline Phosphatase Serum Total Protein Albumin Globulin Albumin/Globulin Ratio Triglycerides Stl C. diff Tox B Gene Vancomycin Trough 10/29/17 10/29/17 10/29/17 03:59 06:43 08:57 WBC RBC Hgb Hct MCV MCH MCHC RDW Plt Count MPV Immature Gran % Seg Neutrophils % Lymphocytes % Monocytes % Eosinophils % Basophils % Neutrophils # Lymphocytes # Monocytes # Eosinophils # Basophils # Platelet Estimate Immature Plt Fraction Hypochromasia Sodium Potassium Chloride Carbon Dioxide BUN Creatinine Est GFR ( Amer) Est GFR (Non-Af Amer) BUN/Creatinine Ratio Glucose POC Glucose 126 H 117 H Calculated Osmolality Calcium Phosphorus 1.8 L Magnesium Total Bilirubin Direct Bilirubin Indirect Bilirubin AST ALT Alkaline Phosphatase Serum Total Protein Albumin Globulin Albumin/Globulin Ratio Triglycerides Stl C. diff Tox B Gene Vancomycin Trough Cultures: Serology 10/28/17 10/27/17 Range/Units 10:15 23:48 Stool Occult Blood Positive A (Negative) Stl C. diff Tox B Gene Negative (Negative) - Impressions Impressions Abdomen/Pelvis CT 10/28/17 14:38 IMPRESSION: Examination limited by motion artifact and patient arm positioning. Massive rectal stool burden. There is moderate free fluid in the pelvis. Proximal colonic wall thickening is suspected. Findings may indicate colitis. Significant splenomegaly. Several low-density lesions in the spleen are nonspecific. Portal vein enlargement may indicate portal hypertension. Small-moderate pleural effusions. Lower lobe consolidation and volume loss, atelectasis versus pneumonia. Periportal edema versus mild intrahepatic biliary ductal dilation. D/ / Westley Mckoy MD / Westley Mckoy MD Interpreting Provider: Westley Mckoy MD Exam - Constitutional Vitals: Temp Pulse Resp BP Pulse Ox 97.7 F 67 20 113/72 99 10/29/17 10:59 10/29/17 10:59 10/29/17 10:59 10/29/17 10:59 10/29/17 10:59 General appearance: cooperative, thin, no febrile - Head Head exam: Present: atraumatic, normal inspection, normocephalic - ENT ENT exam: Present: mucous membranes dry - Neck Neck exam: Present: normal inspection - Respiratory Respiratory exam: Present: decreased breath sounds (bilateral breath sounds), CTAB. Absent: rales, respiratory distress, rhonchi, wheezes - Cardiovascular Cardiovascular exam: Present: RRR, +S1, +S2 - GI/Abdominal GI/Abdominal exam: Present: normal bowel sounds, soft, tenderness (Moans loudly with palpation of the abdomen.). Absent: distended Additional comments: [place] catheter draining clear yellow urine. Patient incontinent of loose brown stool. - Extremities Exam Extremities exam: Absent: joint swelling, pedal edema, tenderness - Neurological Exam Neurological exam: Present: altered (Eyes open, squeezes hand on command but otherwise does not follow commands. Non-verbal.). Absent: facial droop - Skin Skin exam: Present: dry, intact, normal color, warm - VTE Documentation of Mechanical Device: Intermittent pneumatic compression device Consult Discharge Plan - Plan Referrals: NONE,PCP [Primary Care Provider] - - Attending Attestation I examined this patient and my medical decision-making was reviewed with the Resident Physician. I agree with the documented findings, disposition and treatment plan as described except to the extent set forth below.
--- NOTE | 2017-10-29 12:22 | Internal Medicine Consult Note ---
Date of Encounter: 10/29/17 Time of Encounter: 12:10 Internal Medicine - CN: HPI - Data of Consult Requesting Physician: Leslie Paredes Consultation was requested due to the fact that the patient has sepsis and candidemia. Patient is also noted to have pneumonia, urinary tract infection, elevated LFTs, thrombocytopenia, anemia, hypokalemia, trismus, protein calorie malnutrition, and progressive supranuclear palsy. The patient was bedfast and unable to sit at the side of the bed so slit-lamp examination could not be performed and the examination was performed with a pen light (otoscope), direct ophthalmoscope and indirect ophthalmoscope. The patient was nonverbal and a visual acuity measurement could not be obtained for either eye. Confrontation visual ramirez could not be performed and ocular motility testing could not be performed as well. External examination revealed the pupils were equal round and reactive to light with no relative afferent pupillary defects noted. The eyelids were normal in both eyes. Moderate mucus debris was noted in the tear film and on the eyelids in both eyes. The conjunctiva was normal in both eyes. The cornea was clear in both eyes. The anterior chamber was deep and appeared to be clear in both eyes. The iris was normal in both eyes. Digital palpation estimation of the intraocular pressures was unremarkable/normal in both eyes. The pupils were dilated with 1% tropicamide and 2-1/2% phenylephrine drops. After dilation of the eyes there did appear to be moderate nuclear sclerosis of the lens in both eyes. The vitreous was normal and clear in both eyes. The optic nerve heads appeared normal in both eyes with a cup-to-disc ratio of 0.0 in the right eye and 0.3 in the left eye. The macula, posterior pole, retinal vessels, retinal periphery and vitreous were normal in both eyes. Impression: 1. I see no evidence of endophthalmitis in this patient's dilated eye examination. 2. Moderate nuclear sclerotic cataracts in both eyes that are probably not visually significant for this patient. Recommendation: Continued care and monitoring. I would be happy to see the patient again should her condition change or situations arise such that I am requested to do so. - Consult Narrative History of present illness: Ms. Miguel is a 72 year old female Past Med Surg Social Fam HX - Past Medical History Medical history: pulmonary embolus, other (Supranuclear palsy) Psychiatric history: no psych history - Past Surgical History Surgical History: appendectomy, orthopedic, other - Social History Smoking Status: Never smoker Smokeless Tobacco Status: No Alcohol use: none Drug use: none - Family History Mother History Unknown: Yes Internal Medicine - CN: Meds Dextrose Gel [Gluctose] 15 gm PO ONCE PRN gel..gram. 09/06/17 [Rx] Glucagon, Human Recombinant [Glucagen] 1 mg IM ONCE PRN vial 09/06/17 [Rx] Lacri-Lube [Lacri-lube] 1 appl BOTH EYES BID tube 09/06/17 [Rx] Acetaminophen [Tylenol 650mg SUPP] 650 mg RC Q4H PRN 10/26/17 [History] Dextrose 10 % in Water [Dextrose 10%-Water IV Solution] 1,000 ml IV AD 10/26/17 [History] Heparin 5,000 unit SQ Q12H 10/26/17 [History] Morphine Oral CONC [Roxanol] 5 mg SL Q4H PRN 10/26/17 [History] Mvi, Adult No.4, Vit K, 1 of 2 [Infuvite Adult Vial 1] 5 ml IV AD 10/26/17 [ History] Mvi, Adult No.4, Vit K, 2 of 2 [Infuvite Adult Vial 2] 5 ml IV AD 10/26/17 [ History] Ondansetron [Zofran] 4 mg IM Q4H PRN 10/26/17 [History] Polyvinyl Alcohol [Artificial Tears] 1 drop BOTH EYES Q4H PRN 10/26/17 [History] Tpn 3,000 ml IV DAILY 10/26/17 [History] 3 Allergy/AdvReac Type Severity Reaction Status Date / Time codeine Allergy Itching Verified 10/26/17 18:24 Internal Medicine - CN: Exam - Constitutional Vitals: Temp Pulse Resp BP Pulse Ox 97.7 F 67 20 113/72 99 10/29/17 10:59 10/29/17 10:59 10/29/17 10:59 10/29/17 10:59 10/29/17 10:59 Internal Medicine - CN: Reslt - Labs CBC & Chem 7: 10/29/17 03:57 10/29/17 03:57 Labs: Short CBC 10/29/17 Range/Units 03:57 WBC 2.0 L (4.3-11.1) K/mcL Hgb 7.3 L (11.5-15.4) g/dL Hct 23.6 L (35.3-44.9) % Plt Count 91 L (140-400) K/mcL Neutrophils # 1.1 L (1.6-8.9) K/mcL BMP 10/28/17 10/29/17 04:12 03:57 Sodium 141 141 Potassium 3.2 L 3.3 L Chloride 118 H 118 H Carbon Dioxide 19 L 18 L BUN 36 H 26 H Creatinine 0.49 L 0.47 L Glucose 136 H 118 H Calcium 7.0 L 7.2 L Liver Function 10/28/17 Range/Units 04:12 Total Bilirubin 0.5 (0.3-1.0) mg/dL Direct Bilirubin 0.2 (0.0-0.2) mg/dL AST 80 H (13-39) Units/L ALT 84 H (7-52) Units/L Alkaline Phosphatase 112 H (34-104) Units/L Albumin 2.4 L (3.5-5.7) g/dL - ABG Interpretation ABG results: PT/INR, D-dimer PT 13.4 Seconds (9.4-12.1) H 10/27/17 10:21 - Impressions Impressions Abdomen/Pelvis CT 10/28/17 14:38 IMPRESSION: Examination limited by motion artifact and patient arm positioning. Massive rectal stool burden. There is moderate free fluid in the pelvis. Proximal colonic wall thickening is suspected. Findings may indicate colitis. Significant splenomegaly. Several low-density lesions in the spleen are nonspecific. Portal vein enlargement may indicate portal hypertension. Small-moderate pleural effusions. Lower lobe consolidation and volume loss, atelectasis versus pneumonia. Periportal edema versus mild intrahepatic biliary ductal dilation. D/ / Westley Mckoy MD / Westley Mckoy MD Interpreting Provider: Westley Mckoy MD Consult Discharge Plan - Plan Referrals: NONE,PCP [Primary Care Provider] -
[2017-10-29] MEDS ORDERED: 0.9 % Sodium Chloride 500 ML ONE (13:41)
[2017-10-29] MEDS ORDERED: D5% in Water 1,000 ML IVC PRN (17:12)
[2017-10-29] MEDS: DEXTROSE 50% IVC SCH (19:30)
[2017-10-29] MEDS: D5 IVC SCH (19:30)
[2017-10-29] MEDS: WATER IVC SCH (19:30)
[2017-10-29] MEDS: POTASSIUM CHLORIDE IVC SCH (19:30)
[2017-10-29] MEDS: [UNRECOGNIZED DRUG - OTHER] IVC SCH (19:30)
[2017-10-30] MEDS: Insulin LISPRO 300 UNITS/3 ML VIAL SQ SCH ×3 (06:02→18:29)
[2017-10-30 09:39] LABS: Mean Corpuscular HGB Conc 31.3 g/dL (31.6-35.5); Mean Corpuscular Hemoglobin 26.4 pg (28.0-33.3); Mean Corpuscular Volume 84.2 fL (83.0-100.0); Platelet Count 106 K/mcL (140-400); Red Blood Count 3.68 M/mcL (3.82-4.97)
--- NOTE | 2017-10-30 09:45 | Internal Med Progress Note ---
Date of Encounter: 10/30/17 Time of Encounter: 09:40 - Assessment and plan (1) Sepsis Current Visit: Yes Status: Acute Assessment and plan: Severe sepsis secondary to healthcare associated pneumonia present upon admission, candidemia ( C parapsilosis) and UTI ( MRSA) Presented with : Hypotension, tachycardia, tachypnea, leukopenia Patient received bolus fluids, Zosyn day 4 Fluconazole day 4 Vancomycin day 2 ( stopped after the first day) ID following the case Aspiration precautions Qualifiers: Sepsis type: sepsis due to unspecified organism Qualified Code(s): A41.9 - Sepsis, unspecified organism (2) Anemia Current Visit: Yes Status: Acute Assessment and plan: Likely secondary to poor nutrition status and blood loss Stool positive for occult blood Received one unit of blood recheck cbc Qualifiers: Anemia type: other cause Other causes of anemia: other cause, not classified Qualified Code(s): D64.89 - Other specified anemias (3) Abdominal pain Current Visit: Yes Status: Suspected Assessment and plan: due to constipation Abdominal CT shows Massive rectal stool burden. There is moderate free fluid in the pelvis. Proximal colonic wall thickening is suspected. Findings may indicate colitis. Significant splenomegaly. Several low-density lesions in the spleen are nonspecific. Portal vein enlargement may indicate portal hypertension. Small-moderate pleural effusions. Lower lobe consolidation and volume loss, atelectasis versus pneumonia. Periportal edema versus mild intrahepatic biliary ductal dilation. Recieved enemas Qualifiers: Abdominal location: generalized Qualified Code(s): R10.84 - Generalized abdominal pain (4) UTI (urinary tract infection) Current Visit: Yes Status: Acute Assessment and plan: Presumptive staph on culture Patient is on Zosyn Qualifiers: Urinary tract infection type: site unspecified Hematuria presence: without hematuria Qualified Code(s): N39.0 - Urinary tract infection, site not specified (5) Pneumonia Current Visit: Yes Status: Acute Assessment and plan: CXR shows RLL pneumonia, Likely HCAP vs. Aspiration On IV Antibiotics for coverage of HCAP Qualifiers: Pneumonia type: aspiration pneumonia Aspiration pneumonia type: unspecified Laterality: right Lung location: lower lobe of lung Qualified Code(s): J69.0 - Pneumonitis due to inhalation of food and vomit (6) Generalized pain Current Visit: Yes Status: Chronic Assessment and plan: Control pain (7) Progressive supranuclear palsy Current Visit: No Status: Chronic Assessment and plan: The patient has history of PNP Chronic trismus, neck contractures (8) Protein calorie malnutrition Current Visit: Yes Status: Chronic Assessment and plan: Transitioned patient to D10 due to PICC removal Consider PEG in future Qualifiers: Protein-calorie malnutrition severity: severe Qualified Code(s): E43 - Unspecified severe protein-calorie malnutrition (9) DVT prophylaxis Current Visit: No Status: Acute Assessment and plan: SQ Heparin held due to occult blood in stool with low hemoglobin Start SCDs Qualifiers: Sepsis type: sepsis due to unspecified organism Qualified Code(s): A41.9 - Sepsis, unspecified organism - Subjective Interval history: Nonverbal, stable, unable to complete review of systems - Constitutional Vitals: Temp Pulse Resp BP Pulse Ox 97.1 F L 68 16 108/67 95 10/30/17 06:31 10/30/17 06:31 10/30/17 06:31 10/30/17 06:31 10/30/17 06:31 General appearance: Present: A&O X 0, mild distress - Head Head exam: Present: atraumatic, normocephalic - Eye Eye exam: Present: PERRL, conjuntiva pink, sclera anicteric Pupils: Present: PERRL - Neck Neck exam general surgery: Present: supple, trachea midline. Absent: lymphadenopathy - Respiratory Respiratory exam: Present: decreased breath sounds, CTAB, rales. Absent: accessory muscle use, rhonchi, wheezes - Cardiovascular Cardiovascular exam: Present: RRR, +S1, +S2. Absent: diastolic murmur, gallop, rubs, systolic murmur - GI/Abdominal GI/Abdominal exam: Present: distended, normal bowel sounds, soft, no peritoneal signs. Absent: tenderness - Extremities Exam Extremities exam: Present: warm, radial pulses palpable and symmetrical. Absent : calf tenderness, cyanotic, pedal edema Additional comments: Generalized weakness All extremities are atrophied - Neurological Exam Neurological exam: Absent: CN II-XII intact, oriented X3, no focal deficits, pronater drift, facial droop, speech deficit - Skin Skin exam: Present: dry, intact Internal Medicine: Result - Labs CBC & Chem 7: 10/29/17 03:57 10/29/17 03:57 - ABG Interpretation ABG results: PT/INR, D-dimer PT 13.4 Seconds (9.4-12.1) H 10/27/17 10:21 - VTE Documentation of Mechanical Device: Intermittent pneumatic compression device Consult Discharge Plan - Plan Referrals: NONE,PCP [Primary Care Provider] -
[2017-10-30 09:49] LABS: Hemoglobin 9.7 g/dL (11.5-15.4)
[2017-10-30 09:55] LABS: BUN/Creatinine Ratio 34 (6-26); Blood Urea Nitrogen 18 mg/dL (8-23); Calcium 6.8 mg/dL (8.6-10.3); Carbon Dioxide 21 mEq/L (23-29); Chloride 111 mEq/L (98-107); Glucose 110 mg/dL (70-105); Osmolality,Calculated 285 (280-300); Potassium 3.7 mEq/L (3.5-5.1); Sodium 136 mEq/L (136-145); eGFR For African Americans > 60 (> 60); eGFR For Non-African Americans > 60 (> 60)
[2017-10-30] MEDS: Piperacillin/Tazobactam 3.375 GM in 0.9 % Sodium Chloride Mini Bag 100 ML IVPB SCH ×2 (10:33→15:39)
[2017-10-30] MEDS: Fluconazole 200 MG/100 ML 200 MG/100 ML BAG IVPB SCH (10:33)
[2017-10-30] MEDS: WATER IVC SCH (20:06)
[2017-10-30] MEDS: [UNRECOGNIZED DRUG - OTHER] IVC SCH (20:06)
[2017-10-30] MEDS: D5 IVC SCH (20:06)
[2017-10-30] MEDS: DEXTROSE 50% IVC SCH (20:06)
[2017-10-30] MEDS: POTASSIUM CHLORIDE IVC SCH (20:06)
[2017-10-30] MEDS: MORPHINE SUL Oral CONC 10 MG/0.5 ML ORAL.SYG SL PRN (20:07)
[2017-10-31] MEDS: Insulin LISPRO 300 UNITS/3 ML VIAL SQ SCH ×4 (00:47→17:38)
[2017-10-31] MEDS: Piperacillin/Tazobactam 3.375 GM in 0.9 % Sodium Chloride Mini Bag 100 ML IVPB SCH ×3 (00:48→16:11)
[2017-10-31 04:44] LABS: Hematocrit 31.7 % (35.3-44.9); Hemoglobin 10.1 g/dL (11.5-15.4); Mean Corpuscular HGB Conc 31.9 g/dL (31.6-35.5); Mean Corpuscular Volume 81.7 fL (83.0-100.0); Mean Platelet Volume 10.4 fL (9.4-12.4); Platelet Count 116 K/mcL (140-400); Red Blood Count 3.88 M/mcL (3.82-4.97); Red Cell Distribution Width 16.1 % (11.5-14.5)
[2017-10-31 05:03] LABS: BUN/Creatinine Ratio 25 (6-26); Blood Urea Nitrogen 12 mg/dL (8-23); Calcium 7.1 mg/dL (8.6-10.3); Carbon Dioxide 21 mEq/L (23-29); Chloride 109 mEq/L (98-107); Glucose 121 mg/dL (70-105); Osmolality,Calculated 279 (280-300); Potassium 3.4 mEq/L (3.5-5.1); Sodium 134 mEq/L (136-145); eGFR For African Americans > 60 (> 60); eGFR For Non-African Americans > 60 (> 60)
[2017-10-31] MEDS: Fluconazole 200 MG/100 ML 200 MG/100 ML BAG IVPB SCH (08:44)
--- NOTE | 2017-10-31 09:07 | Internal Med Progress Note ---
Date of Encounter: 10/31/17 Time of Encounter: 09:05 - Assessment and plan (1) Sepsis Current Visit: Yes Status: Acute Assessment and plan: Severe sepsis secondary to healthcare associated pneumonia present upon admission, candidemia ( C parapsilosis) and UTI ( MRSA) Presented with : Hypotension, tachycardia, tachypnea, leukopenia Patient received bolus fluids, Zosyn day 5 Fluconazole day 5 Vancomycin day 3 ( stopped after the first day) ID following the case Aspiration precautions Qualifiers: Sepsis type: sepsis due to unspecified organism Qualified Code(s): A41.9 - Sepsis, unspecified organism (2) Anemia Current Visit: Yes Status: Acute Assessment and plan: Likely secondary to poor nutrition status and blood loss Stool positive for occult blood Received one unit of blood recheck cbc Qualifiers: Anemia type: other cause Other causes of anemia: other cause, not classified Qualified Code(s): D64.89 - Other specified anemias (3) Abdominal pain Current Visit: Yes Status: Suspected Assessment and plan: due to constipation Abdominal CT showed Massive rectal stool burden. There is moderate free fluid in the pelvis. Proximal colonic wall thickening is suspected. Findings may indicate colitis. Significant splenomegaly. Several low-density lesions in the spleen are nonspecific. Portal vein enlargement may indicate portal hypertension. Small-moderate pleural effusions. Lower lobe consolidation and volume loss, atelectasis versus pneumonia. Periportal edema versus mild intrahepatic biliary ductal dilation. Recieved enemas Qualifiers: Abdominal location: generalized Qualified Code(s): R10.84 - Generalized abdominal pain (4) UTI (urinary tract infection) Current Visit: Yes Status: Acute Assessment and plan: MRSA Patient is on vancomycin Qualifiers: Urinary tract infection type: site unspecified Hematuria presence: without hematuria Qualified Code(s): N39.0 - Urinary tract infection, site not specified (5) Pneumonia Current Visit: Yes Status: Acute Assessment and plan: CXR shows RLL pneumonia, Likely HCAP vs. Aspiration On IV Antibiotics for coverage of HCAP Qualifiers: Pneumonia type: aspiration pneumonia Aspiration pneumonia type: unspecified Laterality: right Lung location: lower lobe of lung Qualified Code(s): J69.0 - Pneumonitis due to inhalation of food and vomit (6) Generalized pain Current Visit: Yes Status: Chronic Assessment and plan: Control pain (7) Progressive supranuclear palsy Current Visit: No Status: Chronic Assessment and plan: The patient has history of PNP Chronic trismus, neck contractures (8) Protein calorie malnutrition Current Visit: Yes Status: Chronic Assessment and plan: Transitioned patient to D10 due to PICC removal Consider PEG in future Qualifiers: Protein-calorie malnutrition severity: severe Qualified Code(s): E43 - Unspecified severe protein-calorie malnutrition (9) DVT prophylaxis Current Visit: No Status: Acute Assessment and plan: SQ Heparin held due to occult blood in stool with low hemoglobin SCDs Qualifiers: Sepsis type: sepsis due to unspecified organism Qualified Code(s): A41.9 - Sepsis, unspecified organism - Subjective Interval history: Nonverbal, stable, unable to complete review of systems - Constitutional Vitals: Temp Pulse Resp BP Pulse Ox 97.9 F 61 18 118/75 97 10/31/17 07:00 10/31/17 07:00 10/31/17 07:00 10/31/17 07:00 10/31/17 07:00 General appearance: Present: A&O X 0, mild distress Exam: - Head Head exam: Present: atraumatic, normocephalic - Eye Eye exam: Present: PERRL, conjuntiva pink, sclera anicteric Pupils: Present: PERRL - Neck Neck exam general surgery: Present: supple, trachea midline. Absent: lymphadenopathy - Respiratory Respiratory exam: Present: decreased breath sounds, CTAB, rales. Absent: accessory muscle use, rhonchi, wheezes - Cardiovascular Cardiovascular exam: Present: RRR, +S1, +S2. Absent: diastolic murmur, gallop, rubs, systolic murmur - GI/Abdominal GI/Abdominal exam: Present: distended, normal bowel sounds, soft, no peritoneal signs. Absent: tenderness - Extremities Exam Extremities exam: Present: warm, radial pulses palpable and symmetrical. Absent : calf tenderness, cyanotic, pedal edema Additional comments: Generalized weakness All extremities are atrophied - Neurological Exam Neurological exam: Absent: CN II-XII intact, oriented X3, no focal deficits, pronater drift, facial droop, speech deficit - Skin Skin exam: Present: dry, intact Internal Medicine: Result - Labs CBC & Chem 7: 10/31/17 04:00 10/31/17 04:00 Labs: Short CBC 10/30/17 10/31/17 Range/Units 09:23 04:00 WBC 3.3 L D 3.9 L (4.3-11.1) K/mcL Hgb 9.7 L D 10.1 L (11.5-15.4) g/dL Hct 31.0 L 31.7 L (35.3-44.9) % Plt Count 106 L 116 L (140-400) K/mcL BMP 10/30/17 10/31/17 09:23 04:00 Sodium 136 134 L Potassium 3.7 3.4 L Chloride 111 H 109 H Carbon Dioxide 21 L 21 L BUN 18 12 Creatinine 0.53 L 0.48 L Glucose 110 H 121 H Calcium 6.8 L 7.1 L - ABG Interpretation ABG results: PT/INR, D-dimer PT 13.4 Seconds (9.4-12.1) H 10/27/17 10:21 - VTE Documentation of Mechanical Device: Intermittent pneumatic compression device Consult Discharge Plan - Plan Referrals: NONE,PCP [Primary Care Provider] -
[2017-10-31] MEDS: Pantoprazole 40 MG VIAL IVP SCH (10:08)
[2017-10-31] MEDS: D5% in 0.45% NACL w KCl 10 MEQ/1,000 ML MLS IVC SCH (10:08)
[2017-11-01] MEDS: Insulin LISPRO 300 UNITS/3 ML VIAL SQ SCH ×4 (00:23→17:57)
[2017-11-01] MEDS: Piperacillin/Tazobactam 3.375 GM in 0.9 % Sodium Chloride Mini Bag 100 ML IVPB SCH ×3 (00:27→15:46)
[2017-11-01] MEDS: MORPHINE SUL Oral CONC 10 MG/0.5 ML ORAL.SYG SL PRN (03:06)
[2017-11-01 03:30] LABS: Hematocrit 33.1 % (35.3-44.9); Hemoglobin 10.6 g/dL (11.5-15.4); Mean Corpuscular Hemoglobin 26.4 pg (28.0-33.3); Mean Corpuscular Volume 82.5 fL (83.0-100.0); Mean Platelet Volume 9.5 fL (9.4-12.4); Red Blood Count 4.01 M/mcL (3.82-4.97); Red Cell Distribution Width 15.9 % (11.5-14.5)
[2017-11-01 03:57] LABS: BUN/Creatinine Ratio 13 (6-26); Blood Urea Nitrogen 7 mg/dL (8-23); Calcium 7.5 mg/dL (8.6-10.3); Carbon Dioxide 22 mEq/L (23-29); Chloride 112 mEq/L (98-107); Glucose 110 mg/dL (70-105); Osmolality,Calculated 287 (280-300); Potassium 3.1 mEq/L (3.5-5.1); Sodium 139 mEq/L (136-145); eGFR For African Americans > 60 (> 60); eGFR For Non-African Americans > 60 (> 60)
[2017-11-01] MEDS: D5% in 0.45% NACL w KCl 10 MEQ/1,000 ML MLS IVC SCH (05:49)
[2017-11-01] MEDS: Fluconazole 200 MG/100 ML 200 MG/100 ML BAG IVPB SCH (08:16)
[2017-11-01] MEDS: Pantoprazole 40 MG VIAL IVP SCH (08:17)
--- NOTE | 2017-11-01 09:13 | Internal Med Progress Note ---
Date of Encounter: 11/01/17 Time of Encounter: 09:11 - Assessment and plan (1) Sepsis Current Visit: Yes Status: Acute Assessment and plan: Severe sepsis secondary to healthcare associated pneumonia present upon admission, candidemia ( C parapsilosis) and UTI ( MRSA) Presented with : Hypotension, tachycardia, tachypnea, leukopenia Patient received bolus fluids, Zosyn day 6 Fluconazole day 6 Vancomycin day 4 ( stopped after the first day) ID following the case Aspiration precautions PEG will be discussed with POA, IR has refused to place a PEG tube on her in the past Qualifiers: Sepsis type: sepsis due to unspecified organism Qualified Code(s): A41.9 - Sepsis, unspecified organism (2) Anemia Current Visit: Yes Status: Acute Assessment and plan: Likely secondary to poor nutrition status and blood loss Stool positive for occult blood Received one unit of blood recheck cbc Qualifiers: Anemia type: other cause Other causes of anemia: other cause, not classified Qualified Code(s): D64.89 - Other specified anemias (3) Abdominal pain Current Visit: Yes Status: Suspected Assessment and plan: due to constipation Abdominal CT showed Massive rectal stool burden. There is moderate free fluid in the pelvis. Proximal colonic wall thickening is suspected. Findings may indicate colitis. Significant splenomegaly. Several low-density lesions in the spleen are nonspecific. Portal vein enlargement may indicate portal hypertension. Small-moderate pleural effusions. Lower lobe consolidation and volume loss, atelectasis versus pneumonia. Periportal edema versus mild intrahepatic biliary ductal dilation. Recieved enemas Qualifiers: Abdominal location: generalized Qualified Code(s): R10.84 - Generalized abdominal pain (4) UTI (urinary tract infection) Current Visit: Yes Status: Acute Assessment and plan: MRSA Patient is on vancomycin Qualifiers: Urinary tract infection type: site unspecified Hematuria presence: without hematuria Qualified Code(s): N39.0 - Urinary tract infection, site not specified (5) Pneumonia Current Visit: Yes Status: Acute Assessment and plan: CXR shows RLL pneumonia, Likely HCAP vs. Aspiration On IV Antibiotics for coverage of HCAP Qualifiers: Pneumonia type: aspiration pneumonia Aspiration pneumonia type: unspecified Laterality: right Lung location: lower lobe of lung Qualified Code(s): J69.0 - Pneumonitis due to inhalation of food and vomit (6) Generalized pain Current Visit: Yes Status: Chronic Assessment and plan: Control pain (7) Progressive supranuclear palsy Current Visit: No Status: Chronic Assessment and plan: The patient has history of PNP Chronic trismus, neck contractures (8) Protein calorie malnutrition Current Visit: Yes Status: Chronic Assessment and plan: Transitioned patient to D10 due to PICC removal Consider PEG in future Qualifiers: Protein-calorie malnutrition severity: severe Qualified Code(s): E43 - Unspecified severe protein-calorie malnutrition (9) DVT prophylaxis Current Visit: No Status: Acute Assessment and plan: SQ Heparin held due to occult blood in stool with low hemoglobin SCDs Qualifiers: Sepsis type: sepsis due to unspecified organism Qualified Code(s): A41.9 - Sepsis, unspecified organism - Subjective Interval history: Nonverbal, stable, unable to complete review of systems - Constitutional Vitals: Temp Pulse Resp BP Pulse Ox 97.6 F 54 16 123/76 100 11/01/17 06:30 11/01/17 06:30 11/01/17 06:30 11/01/17 06:30 11/01/17 06:30 General appearance: Present: A&O X 0, mild distress Exam: - Head Head exam: Present: atraumatic, normocephalic - Eye Eye exam: Present: PERRL, conjuntiva pink, sclera anicteric Pupils: Present: PERRL - Neck Neck exam general surgery: Present: supple, trachea midline. Absent: lymphadenopathy - Respiratory Respiratory exam: Present: decreased breath sounds, CTAB, rales. Absent: accessory muscle use, rhonchi, wheezes - Cardiovascular Cardiovascular exam: Present: RRR, +S1, +S2. Absent: diastolic murmur, gallop, rubs, systolic murmur - GI/Abdominal GI/Abdominal exam: Present: distended, normal bowel sounds, soft, no peritoneal signs. Absent: tenderness - Extremities Exam Extremities exam: Present: warm, radial pulses palpable and symmetrical. Absent : calf tenderness, cyanotic, pedal edema Additional comments: Generalized weakness All extremities are atrophied - Neurological Exam Neurological exam: Absent: CN II-XII intact, oriented X3, no focal deficits, pronater drift, facial droop, speech deficit - Skin Skin exam: Present: dry, intact Internal Medicine: Result - Labs CBC & Chem 7: 11/01/17 02:38 11/01/17 02:38 Labs: Short CBC 11/01/17 Range/Units 02:38 WBC 3.9 L (4.3-11.1) K/mcL Hgb 10.6 L (11.5-15.4) g/dL Hct 33.1 L (35.3-44.9) % Plt Count 125 L (140-400) K/mcL BMP 11/01/17 02:38 Sodium 139 Potassium 3.1 L Chloride 112 H Carbon Dioxide 22 L BUN 7 L Creatinine 0.53 L Glucose 110 H Calcium 7.5 L - ABG Interpretation ABG results: PT/INR, D-dimer PT 13.4 Seconds (9.4-12.1) H 10/27/17 10:21 - VTE Documentation of Mechanical Device: Intermittent pneumatic compression device Consult Discharge Plan - Plan Referrals: NONE,PCP [Primary Care Provider] -
[2017-11-01] MEDS ORDERED: Potassium Chloride 40 MEQ, Lidocaine 1% 2 ML in D5% in Water 500 ML IVPB ONE (09:45)
[2017-11-01 13:01] LABS: Magnesium 1.6 mg/dL (1.6-2.6)
[2017-11-01 13:27] LABS: Phosphorous 2.4 mg/dL (2.7-4.5)
--- NOTE | 2017-11-01 13:50 | Infectious Disease Progress No ---
Date of Encounter: 11/01/17 Time of Encounter: 13:48 - Assessment and Plan (1) Sepsis Current Visit: Yes Status: Acute The patient had severe sepsis on admission: four SIRS criteria plus elevated LFTs and thrombocytopenia. She developed hypotension responsive to IV fluids after admission. Likely secondary to candidemia, UTI, and PNA. Improved. Tachycardia and tachypnea and hypotension have resolved. She has been afebrile. Leukopenia and thrombocytopenia improved. Blood cultures drawn 10/26/17 are positive 2/2 sets for C. parapsilosis per the PCR (1 drawn from PICC and 1 drawn from peripheral stick). Repeat blood cultures x 2 sets drawn 10/29/17 are NGTD. Qualifiers: Sepsis type: sepsis due to unspecified organism Qualified Code(s): A41.9 - Sepsis, unspecified organism (2) Candidemia Current Visit: Yes Status: Acute Causative organism: C. parapsilosis. Source likely the patient's PICC line and TPN. Blood cultures drawn 10/26/17 are positive 2/2 sets for C. parapsilosis (1 drawn from PICC and 1 from peripheral stick). Repeat blood cultures drawn 10/29/17 are NGTD 2/2 sets. PICC line removed 10/28/17. Given the patient's frail state, I'm not sure that continuing TPN is the best option for the patient when she has a functioning GI system. I spoke with the door patcher team who states the patient's POA has refused a PEG tube in the past, but according to the nurse's notes, it appears she might be open to discussing a PEG tube at this point. Continue fluconazole 200mg IV daily. Opthalmology evaluation noted and appreciated. Duration of treatment depends on the clinical picture, but likely 14 days from the first set of negative blood cultures. Monitor renal and liver function and dose-adjust antibiotics. Okay to re-insert PICC line if/when needed if the patient is to continue TPN. (3) Pneumonia Current Visit: Yes Status: Acute Causative organism unclear. Location: RLL Aspiration vs. HCAP. The patient is at risk for MDR pathogens due to her frail state and living in an ECF, but she has no history of this. The patient's mental status puts at risk for silent aspiration, but she is unable to undergo swallow evaluation and she has been strictly NPO for several months now. S. pneumo and Legionella UAT negative. Repeat CXR. Continue Vancomycin IV. Pharmacy to dose. Goal trough ~15 (day 6). Continue Zosyn 3.375 grams IV Q8H for now (day 7). Duration of treatment depends on the clinical picture. Monitor renal function and for drug toxicity and dose-adjust antibiotics. Qualifiers: Pneumonia type: aspiration pneumonia Aspiration pneumonia type: unspecified Laterality: right Lung location: lower lobe of lung Qualified Code(s): J69.0 - Pneumonitis due to inhalation of food and vomit (4) UTI (urinary tract infection) Current Visit: Yes Status: Acute ASB vs true UTI. The patient's mental status precludes her ability to tell me if she was having urinary symptoms. Causative organism MRSA. Continue Vancomycin IV. Pharmacy to dose. Goal trough ~15 (day 6). Duration of treatment depends on the clinical picture, but likely 7-10 days. Qualifiers: Urinary tract infection type: site unspecified Hematuria presence: without hematuria Qualified Code(s): N39.0 - Urinary tract infection, site not specified (5) Abdominal pain Current Visit: Yes Status: Suspected CT abdomen and pelvis completed 10/28/17 showed massive rectal stool burden, proximal colonic wall thickening concerning for colitis, significant splenomegaly with several low-density lesions in the spleen that are non- specific as well as small-moderate pleural effusions with lower lobe consolidation and volume loss likely atelectasis vs. PNA, and periportal edema vs. mild intra-hepatic biliary ductal dilatation. Constipation management per the primary team. Continue Zosyn for possible colitis. Consider GI consult for possible biliary ductal dilatation. Pain management per the primary team. Qualifiers: Abdominal location: generalized Qualified Code(s): R10.84 - Generalized abdominal pain (6) Elevated LFTs Current Visit: Yes Status: Acute Likely secondary to sepsis. Repeat LFTs are stable. Repeat LFTs in the AM. Monitor closely while on fluconazole. (7) Thrombocytopenia Current Visit: Yes Status: Acute Improved. Likely secondary to sepsis. No acute bleeding noted on exam. Continue to trend. Management per the primary team. (8) Anemia Current Visit: Yes Status: Acute Etiology unclear: poor nutrition + GI loss. FOBT +. Improved after PRBC transfusion. Consider GI consult. Further workup and evaluation per the primary team. 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 (11) Protein calorie malnutrition Current Visit: Yes Status: Chronic The patient is unable to take anything PO due to trismus and the patient's POA has refused PEG tube in the past. On chronic TPN. Nutrition team has been consulted and following. Qualifiers: Protein-calorie malnutrition severity: severe Qualified Code(s): E43 - Unspecified severe protein-calorie malnutrition (12) Progressive supranuclear palsy Current Visit: No Status: Chronic Consider palliative care consult. - Subjective Interval history: Patient seen and examined. Weekend notes reviewed. No acute events noted overnight. Patient resting quietly in bed with eyes closed. No acute distress noted. Patient non-verbal and unable to verbalized. No family at bedside. Infect Dis PN-Objective Data - Labs CBC & Chem 7: 11/01/17 02:38 11/01/17 02:38 Labs: Laboratory Results - last 24 hr 10/31/17 10/31/17 10/31/17 17:25 17:35 19:31 WBC RBC Hgb Hct MCV MCH MCHC RDW Plt Count MPV Immature Plt Fraction Sodium Potassium Chloride Carbon Dioxide BUN Creatinine Est GFR ( Amer) Est GFR (Non-Af Amer) BUN/Creatinine Ratio Glucose POC Glucose 113 H 104 H Calculated Osmolality Calcium Phosphorus Magnesium Vancomycin Trough 12 H 10/31/17 11/01/17 11/01/17 23:21 02:38 02:38 WBC 3.9 L RBC 4.01 Hgb 10.6 L Hct 33.1 L MCV 82.5 L MCH 26.4 L MCHC 32.0 RDW 15.9 H Plt Count 125 L MPV 9.5 Immature Plt Fraction 1.0 L Sodium 139 Potassium 3.1 L Chloride 112 H Carbon Dioxide 22 L BUN 7 L Creatinine 0.53 L Est GFR ( Amer) > 60 Est GFR (Non-Af Amer) > 60 BUN/Creatinine Ratio 13 Glucose 110 H POC Glucose 100 H Calculated Osmolality 287 Calcium 7.5 L Phosphorus Magnesium Vancomycin Trough 11/01/17 11/01/17 09:36 10:58 WBC RBC Hgb Hct MCV MCH MCHC RDW Plt Count MPV Immature Plt Fraction Sodium Potassium Chloride Carbon Dioxide BUN Creatinine Est GFR ( Amer) Est GFR (Non-Af Amer) BUN/Creatinine Ratio Glucose POC Glucose 111 H Calculated Osmolality Calcium Phosphorus 2.4 L Magnesium 1.6 Vancomycin Trough Cultures: Cultures 10/29/17 10:03 Blood Culture - Preliminary Peripheral Venipuncture No growth. 10/29/17 10:02 Blood Culture - Preliminary Peripheral Venipuncture No growth. 10/28/17 18:19 Catheter Tip Culture - Final Intravenous or Arterial Cath Gram Positive Rods 10/29/17 13:54 Legionella Antigen - Final Urine,Catheterized Streptococcus pneumoniae Antigen (M - Final Serology 10/28/17 10/27/17 Range/Units 10:15 23:48 Stool Occult Blood Positive A (Negative) Stl C. diff Tox B Gene Negative (Negative) Exam - Constitutional Vitals: Temp Pulse Resp BP Pulse Ox 97.5 F L 61 16 133/82 98 11/01/17 10:55 11/01/17 10:55 11/01/17 10:55 11/01/17 10:55 11/01/17 10:55 General appearance: average body habitus, no acute distress, no febrile - Head Head exam: Present: atraumatic, normal inspection, normocephalic - Eye Eye exam: Present: EOMI, normal appearance, PERRL Pupils: Present: normal accommodation - ENT ENT exam: Present: mucous membranes dry - Neck Neck exam: Present: normal inspection - Respiratory Respiratory exam: Present: CTAB. Absent: rales, respiratory distress, rhonchi, wheezes - Cardiovascular Cardiovascular exam: Present: RRR, +S1, +S2 - GI/Abdominal GI/Abdominal exam: Present: normal bowel sounds, soft. Absent: distended, tenderness Additional comments: Ocampo catheter noted to be draining clear yellow urine. - Extremities Exam Extremities exam: Absent: joint swelling, pedal edema, tenderness - Neurological Exam Neurological exam: Present: altered (Opens eyes to verbal commands, but does not follow commands or verbalize.) - Skin Skin exam: Present: dry, intact, normal color, warm - VTE Documentation of Mechanical Device: Intermittent pneumatic compression device Consult Discharge Plan - Plan Referrals: NONE,PCP [Primary Care Provider] - - Attending Attestation I examined this patient and my medical decision-making was reviewed with the Resident Physician. I agree with the documented findings, disposition and treatment plan as described except to the extent set forth below.
[2017-11-01] MEDS ORDERED: Potassium Phosphate 44 MEQ in 0.9 % Sodium Chloride 250 ML IVPB ONE (14:48)
[2017-11-02] MEDS: Piperacillin/Tazobactam 3.375 GM in 0.9 % Sodium Chloride Mini Bag 100 ML IVPB SCH ×3 (01:53→16:42)
[2017-11-02] MEDS: D5% in 0.45% NACL w KCl 10 MEQ/1,000 ML MLS IVC SCH ×2 (01:54→21:27)
[2017-11-02] MEDS: Insulin LISPRO 300 UNITS/3 ML VIAL SQ SCH ×4 (01:58→18:11)
[2017-11-02 02:48] LABS: Alanine Aminotransferase 45 Units/L (7-52); Albumin 2.2 g/dL (3.5-5.7); Albumin/Globulin Ratio 0.7 (1.1-2.2); Alkaline Phosphatase 83 Units/L (34-104); Aspartate Amino Transferase 30 Units/L (13-39); BUN/Creatinine Ratio 9 (6-26); Bilirubin,Direct 0.2 mg/dL (0.0-0.2); Bilirubin,Indirect 0.4 mg/dL (0.0-1.2); Bilirubin,Total 0.6 mg/dL (0.3-1.0); Blood Urea Nitrogen 5 mg/dL (8-23); Carbon Dioxide 21 mEq/L (23-29); Chloride 112 mEq/L (98-107); Glucose 99 mg/dL (70-105); Magnesium 1.9 mg/dL (1.6-2.6); Osmolality,Calculated 281 (280-300); Phosphorous 3.3 mg/dL (2.7-4.5); Potassium 3.5 mEq/L (3.5-5.1); Sodium 137 mEq/L (136-145); Total Protein 5.2 g/dL (6.4-8.9); eGFR For African Americans > 60 (> 60); eGFR For Non-African Americans > 60 (> 60)
[2017-11-02] MEDS ORDERED: Potassium Chloride 20 MEQ, Lidocaine 1% 2 ML in D5% in Water 250 ML IVPB ONE (08:26)
--- NOTE | 2017-11-02 08:33 | Internal Med Progress Note ---
<Kai Cunha - Last Filed: 11/02/17 19:01> Date of Encounter: 11/02/17 Time of Encounter: 09:10 - Assessment and plan (1) Sepsis Current Visit: Yes Status: Acute Assessment and plan: Sepsis secondary to UTI vs. Community Acquired Sepsis criteria present on admission: Hypotension, tachycardia, tachypnea, leukopenia with PNA and UTI Broad spectrum antibiotics We will watch closely and re-evaluate as needed 11/02 Zosyn day 7 Fluconazole day 7 Vancomycin day 5 ( stopped after the first day) ID following the case Aspiration precautions Qualifiers: Sepsis type: sepsis due to unspecified organism Qualified Code(s): A41.9 - Sepsis, unspecified organism (2) Anemia Current Visit: Yes Status: Acute Assessment and plan: Likely secondary to poor nutrition status and blood loss Stool positive for occult blood, stable since then Monitor Qualifiers: Anemia type: other cause Other causes of anemia: other cause, not classified Qualified Code(s): D64.89 - Other specified anemias (3) Abdominal pain Current Visit: Yes Status: Suspected Assessment and plan: Suspected abdominal pain patient cannot give specific history She has been having mucoid stool that is occult blood positive We will CT the abdomen for potential source of infection vs. ischemic bowel 10/[address] shows Massive rectal stool burden. There is moderate free fluid in the pelvis. Proximal colonic wall thickening is suspected. Findings may indicate colitis. Significant splenomegaly. Several low-density lesions in the spleen are nonspecific. Portal vein enlargement may indicate portal hypertension. Small-moderate pleural effusions. Lower lobe consolidation and volume loss, atelectasis versus pneumonia. Periportal edema versus mild intrahepatic biliary ductal dilation. Recieved an enema in the evening and had large BM We will give another enema today, monitor for pain Currently being treated with Zosyn, which will cover potential abdominal infections 11/29 Seems improved from prior Qualifiers: Abdominal location: generalized Qualified Code(s): R10.84 - Generalized abdominal pain (4) UTI (urinary tract infection) Current Visit: Yes Status: Acute Assessment and plan: MRSA in urine Patient is on Zosyn and Vancomycin Qualifiers: Urinary tract infection type: site unspecified Hematuria presence: without hematuria Qualified Code(s): N39.0 - Urinary tract infection, site not specified (5) Pneumonia Current Visit: Yes Status: Acute Assessment and plan: CXR shows RLL pneumonia, Likely HCAP vs. Aspiration Patient does not have cough at this time On IV Antibiotics for coverage of HCAP Qualifiers: Pneumonia type: aspiration pneumonia Aspiration pneumonia type: unspecified Laterality: right Lung location: lower lobe of lung Qualified Code(s): J69.0 - Pneumonitis due to inhalation of food and vomit (6) Generalized pain Current Visit: Yes Status: Chronic Assessment and plan: Control pain (7) Progressive supranuclear palsy Current Visit: No Status: Chronic Assessment and plan: The patient has history of PNP Chronic trismus, neck contractures She is non-verbal We will continue to treat pain (8) Protein calorie malnutrition Current Visit: Yes Status: Chronic Assessment and plan: PICC team is reconsulted for new PICC Continue TPN following insertion Qualifiers: Protein-calorie malnutrition severity: severe Qualified Code(s): E43 - Unspecified severe protein-calorie malnutrition (9) DVT prophylaxis Current Visit: No Status: Acute Assessment and plan: SQ Heparin held due to occult blood in stool with low hemoglobin Start SCDs - Subjective Interval history: The patient appears largely unchanged from prior. - Constitutional Vitals: Temp Pulse Resp BP Pulse Ox 98.1 F 53 16 124/71 98 11/02/17 07:14 11/02/17 07:14 11/02/17 07:14 11/02/17 07:14 11/02/17 07:14 General appearance: Present: A&O X 0, mild distress Exam: - Head Head exam: Present: atraumatic, normocephalic - Eye Eye exam: Present: PERRL, conjuntiva pink, sclera anicteric Pupils: Present: PERRL - Neck Neck exam general surgery: Present: supple, trachea midline. Absent: lymphadenopathy - Respiratory Respiratory exam: Present: decreased breath sounds, CTAB, rales. Absent: accessory muscle use, rhonchi, wheezes - Cardiovascular Cardiovascular exam: Present: RRR, +S1, +S2. Absent: diastolic murmur, gallop, rubs, systolic murmur - GI/Abdominal GI/Abdominal exam: Present: distended, normal bowel sounds, soft, no peritoneal signs. Absent: tenderness - Extremities Exam Extremities exam: Present: warm, radial pulses palpable and symmetrical. Absent : calf tenderness, cyanotic, pedal edema Additional comments: Generalized weakness All extremities are atrophied Upper extremities are contracted - Neurological Exam Neurological exam: Absent: CN II-XII intact, oriented X3, no focal deficits, pronater drift, facial droop, speech deficit - Skin Skin exam: Present: dry, intact Internal Medicine: Result - Labs CBC & Chem 7: 11/02/17 09:45 11/02/17 01:55 Labs: BMP 11/02/17 01:55 Sodium 137 Potassium 3.5 Chloride 112 H Carbon Dioxide 21 L BUN 5 L Creatinine 0.53 L Glucose 99 Calcium 7.0 L Liver Function 11/02/17 Range/Units 01:55 Total Bilirubin 0.6 (0.3-1.0) mg/dL Direct Bilirubin 0.2 (0.0-0.2) mg/dL AST 30 (13-39) Units/L ALT 45 (7-52) Units/L Alkaline Phosphatase 83 (34-104) Units/L Albumin 2.2 L (3.5-5.7) g/dL - ABG Interpretation ABG results: PT/INR, D-dimer PT 13.4 Seconds (9.4-12.1) H 10/27/17 10:21 - Impressions Impressions Chest X-Ray 11/01/17 13:58 IMPRESSION: Interval progression of left basilar infiltrate and effusion. Partial interval clearing at the right lung base. Continued plain film follow-up recommended. D/ / Ger Baker MD / Ger Baker MD Interpreting Provider: Ger Baker MD - VTE Documentation of Mechanical Device: Intermittent pneumatic compression device Consult Discharge Plan - Plan Referrals: NONE,PCP [Primary Care Provider] - <Bruno Flores - Last Filed: 11/02/17 19:30> Date of Encounter: 11/02/17 - Assessment and plan (1) Sepsis Current Visit: Yes Status: Resolved Qualifiers: Sepsis type: Stephania Qualified Code(s): B37.7 - Candidal sepsis (2) Central line-associated bloodstream infection Current Visit: Yes Status: Acute Assessment and plan: Candidemia Qualifiers: Encounter type: subsequent encounter Qualified Code(s): T80.211D - Bloodstream infection due to central venous catheter, subsequent encounter (3) Pneumonia Current Visit: Yes Status: Acute Qualifiers: Pneumonia type: aspiration pneumonia Aspiration pneumonia type: unspecified Laterality: right Lung location: lower lobe of lung Qualified Code(s): J69.0 - Pneumonitis due to inhalation of food and vomit (4) Protein calorie malnutrition Current Visit: Yes Status: Chronic Qualifiers: Protein-calorie malnutrition severity: severe Qualified Code(s): E43 - Unspecified severe protein-calorie malnutrition (5) Anemia Current Visit: Yes Status: Chronic Qualifiers: Anemia type: other cause Other causes of anemia: chronic disease, other Qualified Code(s): D63.8 - Anemia in other chronic diseases classified elsewhere (6) Progressive supranuclear palsy Current Visit: No Status: Chronic - Constitutional Vitals: Temp Pulse Resp BP Pulse Ox 97.8 F 58 16 118/75 97 11/02/17 16:17 11/02/17 16:17 11/02/17 16:17 11/02/17 16:17 11/02/17 16:17 Internal Medicine: Result - Labs CBC & Chem 7: 11/02/17 09:45 11/02/17 01:55 Labs: Short CBC 11/02/17 Range/Units 09:45 WBC 4.0 L (4.3-11.1) K/mcL Hgb 9.6 L (11.5-15.4) g/dL Hct 31.3 L (35.3-44.9) % Plt Count 112 L (140-400) K/mcL Neutrophils # 2.3 (1.6-8.9) K/mcL BMP 11/02/17 01:55 Sodium 137 Potassium 3.5 Chloride 112 H Carbon Dioxide 21 L BUN 5 L Creatinine 0.53 L Glucose 99 Calcium 7.0 L Liver Function 11/02/17 Range/Units 01:55 Total Bilirubin 0.6 (0.3-1.0) mg/dL Direct Bilirubin 0.2 (0.0-0.2) mg/dL AST 30 (13-39) Units/L ALT 45 (7-52) Units/L Alkaline Phosphatase 83 (34-104) Units/L Albumin 2.2 L (3.5-5.7) g/dL - ABG Interpretation ABG results: PT/INR, D-dimer PT 13.4 Seconds (9.4-12.1) H 10/27/17 10:21 - Attending Attestation I examined this patient and my medical decision-making was reviewed with the Resident Physician on 11/02/17. I agree with the documented findings, disposition and treatment plan as described except to the extent set forth below. Ms Miguel is currently admitted for sepsis due to candidemia due to PICC line. She remains moderate to high risk due to potential for worsening clinical status. Ms Miguel has no fever or other issues. PICC line out. Repeat cultures negative thus far. Exam Opens eyes. Mucus membranes dry Heart reg Lungs diminished Abd soft I/P 1. Sepsis - resolved 2. CLASBI - candidemia. Present on admit Further diagnoses and plan as above Will need to decide on further TPN with POA discussion.
[2017-11-02] MEDS: Fluconazole 200 MG/100 ML 200 MG/100 ML BAG IVPB SCH (08:47)
[2017-11-02] MEDS: Pantoprazole 40 MG VIAL IVP SCH (08:48)
--- NOTE | 2017-11-02 09:13 | Infectious Disease Progress No ---
Date of Encounter: 11/02/17 Time of Encounter: 09:10 - Assessment and Plan (1) Sepsis Current Visit: Yes Status: Acute The patient had severe sepsis on admission: four SIRS criteria plus elevated LFTs and thrombocytopenia. She developed hypotension responsive to IV fluids after admission. Likely secondary to candidemia, UTI, and PNA. Improved. Tachycardia and tachypnea and hypotension have resolved. She has been afebrile. Leukopenia and thrombocytopenia improved. LFTs have normalized. Blood cultures drawn 10/26/17 are positive 2/2 sets for C. parapsilosis per the PCR (1 drawn from PICC and 1 drawn from peripheral stick). Repeat blood cultures x 2 sets drawn 10/29/17 are NGTD. Get CBC. Qualifiers: Sepsis type: sepsis due to unspecified organism Qualified Code(s): A41.9 - Sepsis, unspecified organism (2) Candidemia Current Visit: Yes Status: Acute Causative organism: C. parapsilosis. Source likely the patient's PICC line and TPN. Blood cultures drawn 10/26/17 are positive 2/2 sets for C. parapsilosis (1 drawn from PICC and 1 from peripheral stick). Repeat blood cultures drawn 10/29/17 are NGTD 2/2 sets. PICC line removed 10/28/17. Given the patient's frail state, I'm not sure that continuing TPN is the best option for the patient when she has a functioning GI system and re-inserting a PICC line and re-starting TPN puts her at high risk for recurrence of candidemia. I spoke with the environmental services worker team who states the patient's POA has refused a PEG tube in the past, but according to the nurse's notes, it appears she might be open to discussing a PEG tube at this point. Continue fluconazole 200mg IV daily (day 4). Opthalmology evaluation noted and appreciated. Duration of treatment depends on the clinical picture, but likely 14 days from the first set of negative blood cultures. Treat through 11/11/17. Monitor renal and liver function and dose-adjust antibiotics. Okay to re-insert PICC line if/when needed if the patient is to continue TPN. Discussed with the primary team. (3) Pneumonia Current Visit: Yes Status: Acute Causative organism unclear. Location: RLL Aspiration vs. HCAP. The patient is at risk for MDR pathogens due to her frail state and living in an ECF, but she has no history of this. The patient's mental status puts at risk for silent aspiration, but she is unable to undergo swallow evaluation and she has been strictly NPO for several months now. S. pneumo and Legionella UAT negative. Repeat CXR shows progression of left basilar infiltrate, but improvement in the right basilar infiltrate. Continue Vancomycin IV. Pharmacy to dose. Goal trough ~15 (day 7). Continue Zosyn 3.375 grams IV Q8H for now (day 8). Duration of treatment depends on the clinical picture. Monitor renal function and for drug toxicity and dose-adjust antibiotics. Qualifiers: Pneumonia type: aspiration pneumonia Aspiration pneumonia type: unspecified Laterality: right Lung location: lower lobe of lung Qualified Code(s): J69.0 - Pneumonitis due to inhalation of food and vomit (4) UTI (urinary tract infection) Current Visit: Yes Status: Acute ASB vs true UTI. The patient's mental status precludes her ability to tell me if she was having urinary symptoms. Causative organism MRSA. Continue Vancomycin IV. Pharmacy to dose. Goal trough ~15 (day 7). Duration of treatment depends on the clinical picture, but likely 7-10 days. Remove mane catheter if okay with the primary team. Qualifiers: Urinary tract infection type: site unspecified Hematuria presence: without hematuria Qualified Code(s): N39.0 - Urinary tract infection, site not specified (5) Abdominal pain Current Visit: Yes Status: Suspected CT abdomen and pelvis completed 10/28/17 showed massive rectal stool burden, proximal colonic wall thickening concerning for colitis, significant splenomegaly with several low-density lesions in the spleen that are non- specific as well as small-moderate pleural effusions with lower lobe consolidation and volume loss likely atelectasis vs. PNA, and periportal edema vs. mild intra-hepatic biliary ductal dilatation. Constipation management per the primary team. Continue Zosyn for possible colitis. Consider GI consult for possible biliary ductal dilatation. Pain management per the primary team. Qualifiers: Abdominal location: generalized Qualified Code(s): R10.84 - Generalized abdominal pain (6) Elevated LFTs Current Visit: Yes Status: Resolved Likely secondary to sepsis. Repeat LFTs are normalized. Monitor closely while on fluconazole. (7) Thrombocytopenia Current Visit: Yes Status: Acute Improved. Likely secondary to sepsis. No acute bleeding noted on exam. Continue to trend. Management per the primary team. Re-check CBC. (8) Anemia Current Visit: Yes Status: Acute Etiology unclear: poor nutrition + GI loss. FOBT +. Improved after PRBC transfusion. Consider GI consult. Further workup and evaluation per the primary team. Repeat CBC. 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 (11) Protein calorie malnutrition Current Visit: Yes Status: Chronic The patient is unable to take anything PO due to trismus and the patient's POA has refused PEG tube in the past. On chronic TPN. Nutrition team has been consulted and following. Qualifiers: Protein-calorie malnutrition severity: severe Qualified Code(s): E43 - Unspecified severe protein-calorie malnutrition (12) Progressive supranuclear palsy Current Visit: No Status: Chronic Consider palliative care consult. - Subjective Interval history: Patient seen and examined. Weekend notes reviewed. No acute events noted overnight. Patient resting quietly in bed with eyes closed. No acute distress noted. Patient non-verbal and unable to verbalized. No family at bedside. Infect Dis PN-Objective Data - Labs CBC & Chem 7: 11/02/17 09:45 11/02/17 01:55 Labs: Laboratory Results - last 24 hr 11/01/17 11/01/17 11/01/17 05:31 09:36 10:58 Sodium Potassium Chloride Carbon Dioxide BUN Creatinine Est GFR ( Amer) Est GFR (Non-Af Amer) BUN/Creatinine Ratio Glucose POC Glucose 97 H 111 H Calculated Osmolality Calcium Phosphorus 2.4 L Magnesium 1.6 Total Bilirubin Direct Bilirubin Indirect Bilirubin AST ALT Alkaline Phosphatase Serum Total Protein Albumin Globulin Albumin/Globulin Ratio 11/01/17 11/02/17 11/02/17 17:48 01:55 05:31 Sodium 137 Potassium 3.5 Chloride 112 H Carbon Dioxide 21 L BUN 5 L Creatinine 0.53 L Est GFR ( Amer) > 60 Est GFR (Non-Af Amer) > 60 BUN/Creatinine Ratio 9 Glucose 99 POC Glucose 113 H 94 H Calculated Osmolality 281 Calcium 7.0 L Phosphorus 3.3 Magnesium 1.9 Total Bilirubin 0.6 Direct Bilirubin 0.2 Indirect Bilirubin 0.4 AST 30 ALT 45 Alkaline Phosphatase 83 Serum Total Protein 5.2 L Albumin 2.2 L Globulin 3.0 Albumin/Globulin Ratio 0.7 L Cultures: Cultures 10/29/17 10:03 Blood Culture - Preliminary Peripheral Venipuncture No growth. 10/29/17 10:02 Blood Culture - Preliminary Peripheral Venipuncture No growth. 10/28/17 18:19 Catheter Tip Culture - Final Intravenous or Arterial Cath Gram Positive Rods 10/29/17 13:54 Legionella Antigen - Final Urine,Catheterized Streptococcus pneumoniae Antigen (M - Final Serology 10/28/17 10/27/17 Range/Units 10:15 23:48 Stool Occult Blood Positive A (Negative) Stl C. diff Tox B Gene Negative (Negative) - Impressions Impressions Chest X-Ray 11/01/17 13:58 IMPRESSION: Interval progression of left basilar infiltrate and effusion. Partial interval clearing at the right lung base. Continued plain film follow-up recommended. D/ / Ger Baker MD / Ger Baker MD Interpreting Provider: Ger Baker MD Exam - Constitutional Vitals: Temp Pulse Resp BP Pulse Ox 98.1 F 53 16 124/71 98 11/02/17 07:14 11/02/17 07:14 11/02/17 07:14 11/02/17 07:14 11/02/17 07:14 General appearance: no acute distress, thin, no febrile - Head Head exam: Present: atraumatic, normal inspection, normocephalic - Eye Eye exam: Present: normal appearance, PERRL Pupils: Present: normal accommodation - ENT ENT exam: Present: mucous membranes dry - Neck Neck exam: Present: normal inspection - Respiratory Respiratory exam: Present: CTAB. Absent: rales, respiratory distress, rhonchi, wheezes - Cardiovascular Cardiovascular exam: Present: RRR, +S1, +S2 - GI/Abdominal GI/Abdominal exam: Present: normal bowel sounds, soft. Absent: distended, tenderness Additional comments: Mane catheter noted to be draining clear yellow urine. - Extremities Exam Extremities exam: Present: normal inspection. Absent: joint swelling, pedal edema, tenderness - Neurological Exam Neurological exam: Present: altered (Non-verbal, follows some commands. Moves RUE and RLE.) - Skin Skin exam: Present: dry, intact, normal color, warm - VTE Documentation of Mechanical Device: Intermittent pneumatic compression device Consult Discharge Plan - Plan Referrals: NONE,PCP [Primary Care Provider] - - Attending Attestation I examined this patient and my medical decision-making was reviewed with the Resident Physician. I agree with the documented findings, disposition and treatment plan as described except to the extent set forth below.
[2017-11-02 10:05] LABS: Hemoglobin 9.6 g/dL (11.5-15.4); Mean Platelet Volume 9.3 fL (9.4-12.4); Red Cell Distribution Width 16.4 % (11.5-14.5)
[2017-11-02 10:07] LABS: Basophils % 0.5 %; Eosinophils # 0.3 K/mcL (0.0-0.6); Eosinophils % 6.8 %; Hematocrit 31.3 % (35.3-44.9); Immature Granulocytes % 0.8 % (0-4); Immature Platelets 0.8 % (1.1-6.1); Lymphocytes # 1.1 K/mcL (0.6-4.6); Lymphocytes % 27.8 %; Mean Corpuscular HGB Conc 30.7 g/dL (31.6-35.5); Mean Corpuscular Hemoglobin 25.9 pg (28.0-33.3); Mean Corpuscular Volume 84.4 fL (83.0-100.0); Monocytes # 0.3 K/mcL (0.0-1.3); Monocytes % 6.8 %; Neutrophils # 2.3 K/mcL (1.6-8.9); Platelet Count 112 K/mcL (140-400); Red Blood Count 3.71 M/mcL (3.82-4.97); Segmented Neutrophils % 57.3 %
[2017-11-02] MEDS: MORPHINE SUL Oral CONC 10 MG/0.5 ML ORAL.SYG SL PRN (21:05)
[2017-11-03] MEDS: Piperacillin/Tazobactam 3.375 GM in 0.9 % Sodium Chloride Mini Bag 100 ML IVPB SCH ×3 (00:31→17:53)
[2017-11-03] MEDS: Insulin LISPRO 300 UNITS/3 ML VIAL SQ SCH ×4 (00:36→17:53)
[2017-11-03 04:58] LABS: BUN/Creatinine Ratio 7 (6-26); Blood Urea Nitrogen 4 mg/dL (8-23); Calcium 6.8 mg/dL (8.6-10.3); Carbon Dioxide 21 mEq/L (23-29); Chloride 111 mEq/L (98-107); Glucose 139 mg/dL (70-105); Osmolality,Calculated 279 (280-300); Potassium 3.3 mEq/L (3.5-5.1); Sodium 135 mEq/L (136-145); eGFR For African Americans > 60 (> 60); eGFR For Non-African Americans > 60 (> 60)
[2017-11-03] MEDS: Pantoprazole 40 MG VIAL IVP SCH (08:35)
[2017-11-03] MEDS ORDERED: Potassium Chloride 40 MEQ, Lidocaine 1% 2 ML in D5% in Water 500 ML IVPB ONE (09:52)
--- NOTE | 2017-11-03 10:21 | Infectious Disease Progress No ---
Date of Encounter: 11/03/17 Time of Encounter: 10:19 - Assessment and Plan (1) Sepsis Current Visit: Yes Status: Resolved The patient had severe sepsis on admission: four SIRS criteria plus elevated LFTs and thrombocytopenia. She developed hypotension responsive to IV fluids after admission. Likely secondary to candidemia, UTI, and PNA. Improved. Tachycardia and tachypnea and hypotension have resolved. She has been afebrile. Leukopenia and thrombocytopenia improved. LFTs have normalized. Blood cultures drawn 10/26/17 are positive 2/2 sets for C. parapsilosis per the PCR (1 drawn from PICC and 1 drawn from peripheral stick). Repeat blood cultures x 2 sets drawn 10/29/17 are negative. Get CBC. Qualifiers: Sepsis type: Stephania Qualified Code(s): B37.7 - Candidal sepsis (2) Candidemia Current Visit: Yes Status: Acute Causative organism: C. parapsilosis. Source likely the patient's PICC line and TPN. Blood cultures drawn 10/26/17 are positive 2/2 sets for C. parapsilosis (1 drawn from PICC and 1 from peripheral stick). Repeat blood cultures drawn 10/29/17 are NGTD 2/2 sets. PICC line removed 10/28/17. Given the patient's frail state, I'm not sure that continuing TPN is the best option for the patient when she has a functioning GI system and re-inserting a PICC line and re-starting TPN puts her at high risk for recurrence of candidemia. I spoke with the gas leak inspector team who states the patient's POA has refused a PEG tube in the past, but according to the nurse's notes, it appears she might be open to discussing a PEG tube at this point. Continue fluconazole 200mg IV daily (day 4). Opthalmology evaluation noted and appreciated. Duration of treatment depends on the clinical picture, but likely 14 days from the first set of negative blood cultures. Treat through 11/11/17. Monitor renal and liver function and dose-adjust antibiotics. Okay to re-insert PICC line if/when needed if the patient is to continue TPN. Discussed with the primary team. (3) Pneumonia Current Visit: Yes Status: Acute Causative organism unclear. Location: RLL Aspiration vs. HCAP. The patient is at risk for MDR pathogens due to her frail state and living in an ECF, but she has no history of this. The patient's mental status puts at risk for silent aspiration, but she is unable to undergo swallow evaluation and she has been strictly NPO for several months now. S. pneumo and Legionella UAT negative. Repeat CXR shows progression of left basilar infiltrate, but improvement in the right basilar infiltrate. Continue Vancomycin IV. Pharmacy to dose. Goal trough ~15 (day 8). Continue Zosyn 3.375 grams IV Q8H for now (day 9). Duration of treatment depends on the clinical picture, but recommend completing a 10 day course of both Vanc and Zosyn. Monitor renal function and for drug toxicity and dose-adjust antibiotics. Qualifiers: Pneumonia type: aspiration pneumonia Aspiration pneumonia type: unspecified Laterality: right Lung location: lower lobe of lung Qualified Code(s): J69.0 - Pneumonitis due to inhalation of food and vomit (4) UTI (urinary tract infection) Current Visit: Yes Status: Acute ASB vs true UTI. The patient's mental status precludes her ability to tell me if she was having urinary symptoms. Causative organism MRSA. Continue Vancomycin IV. Pharmacy to dose. Goal trough ~15 (day 8). Duration of treatment depends on the clinical picture, but likely 7-10 days. Remove mane catheter if okay with the primary team. Qualifiers: Urinary tract infection type: site unspecified Hematuria presence: without hematuria Qualified Code(s): N39.0 - Urinary tract infection, site not specified (5) Abdominal pain Current Visit: Yes Status: Suspected CT abdomen and pelvis completed 10/28/17 showed massive rectal stool burden, proximal colonic wall thickening concerning for colitis, significant splenomegaly with several low-density lesions in the spleen that are non- specific as well as small-moderate pleural effusions with lower lobe consolidation and volume loss likely atelectasis vs. PNA, and periportal edema vs. mild intra-hepatic biliary ductal dilatation. Constipation management per the primary team. Continue Zosyn for possible colitis (day 9). Consider GI consult for possible biliary ductal dilatation. Pain management per the primary team. Qualifiers: Abdominal location: generalized Qualified Code(s): R10.84 - Generalized abdominal pain (6) Elevated LFTs Current Visit: Yes Status: Resolved Likely secondary to sepsis. Repeat LFTs are normalized. Monitor closely while on fluconazole. (7) Thrombocytopenia Current Visit: Yes Status: Acute Improved. Likely secondary to sepsis. No acute bleeding noted on exam. Continue to trend. Management per the primary team. Re-check CBC. (8) Anemia Current Visit: Yes Status: Chronic Etiology unclear: poor nutrition + GI loss. FOBT +. Improved after PRBC transfusion. Consider GI consult. Further workup and evaluation per the primary team. Repeat CBC. Qualifiers: Anemia type: other cause Other causes of anemia: chronic disease, other Qualified Code(s): D63.8 - Anemia in other chronic diseases classified elsewhere (9) Hypokalemia Current Visit: No Status: Acute (10) Trismus Current Visit: No Status: Acute Secondary to supranuclear palsy. (11) Protein calorie malnutrition Current Visit: Yes Status: Chronic The patient is unable to take anything PO due to trismus and the patient's POA has refused PEG tube in the past. On chronic TPN. Nutrition team has been consulted and following. Qualifiers: Protein-calorie malnutrition severity: severe Qualified Code(s): E43 - Unspecified severe protein-calorie malnutrition (12) Progressive supranuclear palsy Current Visit: No Status: Chronic Consider palliative care consult. - Subjective Interval history: Patient seen and examined. No acute events noted overnight. Patient resting quietly in bed with eyes closed. No acute distress noted. Patient non-verbal and unable to verbalize. No family at bedside. No acute distress noted. Infect Dis PN-Objective Data - Labs CBC & Chem 7: 11/03/17 09:51 11/03/17 04:00 Labs: Laboratory Results - last 24 hr 11/01/17 11/02/17 11/02/17 21:24 11:32 18:06 Sodium Potassium Chloride Carbon Dioxide BUN Creatinine Est GFR ( Amer) Est GFR (Non-Af Amer) BUN/Creatinine Ratio Glucose POC Glucose 99 H 120 H 100 H Calculated Osmolality Calcium 11/03/17 11/03/17 11/03/17 00:36 04:00 06:16 Sodium 135 L Potassium 3.3 L Chloride 111 H Carbon Dioxide 21 L BUN 4 L Creatinine 0.54 L Est GFR ( Amer) > 60 Est GFR (Non-Af Amer) > 60 BUN/Creatinine Ratio 7 Glucose 139 H POC Glucose 79 93 H Calculated Osmolality 279 L Calcium 6.8 L Cultures: Cultures 10/29/17 10:03 Blood Culture - Preliminary Peripheral Venipuncture No growth. 10/29/17 10:02 Blood Culture - Preliminary Peripheral Venipuncture No growth. 10/28/17 18:19 Catheter Tip Culture - Final Intravenous or Arterial Cath Gram Positive Rods 10/29/17 13:54 Legionella Antigen - Final Urine,Catheterized Streptococcus pneumoniae Antigen (M - Final Serology 10/28/17 10/27/17 Range/Units 10:15 23:48 Stool Occult Blood Positive A (Negative) Stl C. diff Tox B Gene Negative (Negative) Exam - Constitutional Vitals: Temp Pulse Resp BP Pulse Ox 97.8 F 51 16 132/76 99 11/03/17 06:39 11/03/17 06:39 11/03/17 06:39 11/03/17 06:39 11/03/17 06:39 General appearance: cooperative, no acute distress, thin - Head Head exam: Present: atraumatic, normal inspection, normocephalic - Eye Eye exam: Present: normal appearance, PERRL Pupils: Present: normal accommodation - ENT ENT exam: Present: mucous membranes dry - Neck Neck exam: Present: normal inspection - Respiratory Respiratory exam: Present: CTAB. Absent: rales, respiratory distress, rhonchi, wheezes - Cardiovascular Cardiovascular exam: Present: RRR, +S1, +S2 - GI/Abdominal GI/Abdominal exam: Present: normal bowel sounds, soft. Absent: distended, tenderness Additional comments: Mane catheter noted to be draining clear yellow urine. - Extremities Exam Extremities exam: Absent: joint swelling, pedal edema, tenderness - Neurological Exam Neurological exam: Present: altered (Awake, eyes open, follows some commands. Moves BLE and RUE on command, but RUE grasp is weak. Contracture noted to the LUE.) - Skin Skin exam: Present: dry, intact, normal color, warm - VTE Documentation of Mechanical Device: Intermittent pneumatic compression device Consult Discharge Plan - Plan Referrals: NONE,PCP [Primary Care Provider] - - Attending Attestation I examined this patient and my medical decision-making was reviewed with the Resident Physician. I agree with the documented findings, disposition and treatment plan as described except to the extent set forth below.
[2017-11-03 10:58] LABS: Basophils % 0.2 %; Eosinophils # 0.3 K/mcL (0.0-0.6); Eosinophils % 5.3 %; Hematocrit 32.9 % (35.3-44.9); Hemoglobin 10.5 g/dL (11.5-15.4); Immature Granulocytes % 0.6 % (0-4); Lymphocytes # 1.1 K/mcL (0.6-4.6); Lymphocytes % 21.6 %; Mean Corpuscular HGB Conc 31.9 g/dL (31.6-35.5); Mean Corpuscular Hemoglobin 26.4 pg (28.0-33.3); Mean Corpuscular Volume 82.7 fL (83.0-100.0); Mean Platelet Volume 9.7 fL (9.4-12.4); Monocytes # 0.2 K/mcL (0.0-1.3); Monocytes % 4.5 %; Neutrophils # 3.6 K/mcL (1.6-8.9); Nucleated Red Blood Cells 0.4 /100 WBC (0); Platelet Count 130 K/mcL (140-400); Red Blood Count 3.98 M/mcL (3.82-4.97); Red Cell Distribution Width 16.5 % (11.5-14.5); Segmented Neutrophils % 67.8 %
[2017-11-03 11:16] LABS: Magnesium 1.8 mg/dL (1.6-2.6); Phosphorous 2.6 mg/dL (2.7-4.5)
[2017-11-03] MEDS ORDERED: Potassium Phosphate 44 MEQ in 0.9 % Sodium Chloride 250 ML IVPB ONE (13:01)
[2017-11-03] MEDS: Fluconazole 200 MG/100 ML 200 MG/100 ML BAG IVPB SCH (14:20)
--- NOTE | 2017-11-03 17:06 | Internal Med Progress Note ---
<Kai Cunha - Last Filed: 11/03/17 17:03> Date of Encounter: 11/03/17 Time of Encounter: 10:15 - Assessment and plan (1) Protein calorie malnutrition Current Visit: Yes Status: Chronic Assessment and plan: Had long conversation with VALENTÍN Todd, about nutrition POA does not want TPN, ID recommends against TPN IR has been consulted for PEG previously, refused based on ethical concerns They believed that this may prolong suffering We will consult GI for opinion on PEG insertion Qualifiers: Protein-calorie malnutrition severity: severe Qualified Code(s): E43 - Unspecified severe protein-calorie malnutrition (2) Sepsis Current Visit: Yes Status: Resolved Assessment and plan: Sepsis secondary to UTI vs. Community Acquired Sepsis criteria present on admission: Hypotension, tachycardia, tachypnea, leukopenia with PNA and UTI Broad spectrum antibiotics We will watch closely and re-evaluate as needed / Zosyn day 8 Fluconazole day 8 Vancomycin day 6 ( stopped after the first day) ID following the case Aspiration precautions Qualifiers: Sepsis type: Stephania Qualified Code(s): B37.7 - Candidal sepsis (3) Anemia Current Visit: Yes Status: Chronic Assessment and plan: Likely secondary to poor nutrition status and blood loss Stool positive for occult blood, stable since then Monitor Qualifiers: Anemia type: other cause Other causes of anemia: chronic disease, other Qualified Code(s): D63.8 - Anemia in other chronic diseases classified elsewhere (4) Abdominal pain Current Visit: Yes Status: Resolved Assessment and plan: Suspected abdominal pain patient cannot give specific history She has been having mucoid stool that is occult blood positive We will CT the abdomen for potential source of infection vs. ischemic bowel 10/[address] shows Massive rectal stool burden. There is moderate free fluid in the pelvis. Proximal colonic wall thickening is suspected. Findings may indicate colitis. Significant splenomegaly. Several low-density lesions in the spleen are nonspecific. Portal vein enlargement may indicate portal hypertension. Small-moderate pleural effusions. Lower lobe consolidation and volume loss, atelectasis versus pneumonia. Periportal edema versus mild intrahepatic biliary ductal dilation. Recieved an enema in the evening and had large BM We will give another enema today, monitor for pain Currently being treated with Zosyn, which will cover potential abdominal infections 11/03 Resolved Qualifiers: Abdominal location: generalized Qualified Code(s): R10.84 - Generalized abdominal pain (5) UTI (urinary tract infection) Current Visit: Yes Status: Acute Assessment and plan: MRSA in urine Patient is on Zosyn and Vancomycin Qualifiers: Urinary tract infection type: site unspecified Hematuria presence: without hematuria Qualified Code(s): N39.0 - Urinary tract infection, site not specified (6) Pneumonia Current Visit: Yes Status: Acute Assessment and plan: CXR shows RLL pneumonia, Likely HCAP vs. Aspiration Patient does not have cough at this time On IV Antibiotics for coverage of HCAP Qualifiers: Pneumonia type: aspiration pneumonia Aspiration pneumonia type: unspecified Laterality: right Lung location: lower lobe of lung Qualified Code(s): J69.0 - Pneumonitis due to inhalation of food and vomit (7) Generalized pain Current Visit: Yes Status: Chronic Assessment and plan: Control pain (8) Progressive supranuclear palsy Current Visit: No Status: Chronic Assessment and plan: The patient has history of PNP Chronic trismus, neck contractures She is non-verbal We will continue to treat pain (9) DVT prophylaxis Current Visit: No Status: Acute - Subjective Interval history: The patient appears largely unchanged from prior. ID has recommended that the patient not receive TPN. The POA is insistent that we pursue a PEG tube. - Constitutional Vitals: Temp Pulse Resp BP Pulse Ox 97.7 F 58 16 143/83 98 11/03/17 16:22 11/03/17 16:22 11/03/17 16:22 11/03/17 16:22 11/03/17 16:22 General appearance: Present: A&O X 0, mild distress Exam: - Head Head exam: Present: atraumatic, normocephalic - Eye Eye exam: Present: PERRL, conjuntiva pink, sclera anicteric Pupils: Present: PERRL - Neck Neck exam general surgery: Present: supple, trachea midline. Absent: lymphadenopathy - Respiratory Respiratory exam: Present: decreased breath sounds, CTAB, rales. Absent: accessory muscle use, rhonchi, wheezes - Cardiovascular Cardiovascular exam: Present: RRR, +S1, +S2. Absent: diastolic murmur, gallop, rubs, systolic murmur - GI/Abdominal GI/Abdominal exam: Present: distended, normal bowel sounds, soft, no peritoneal signs. Absent: tenderness - Extremities Exam Extremities exam: Present: warm, radial pulses palpable and symmetrical. Absent : calf tenderness, cyanotic, pedal edema Additional comments: Generalized weakness All extremities are atrophied Upper extremities are contracted - Neurological Exam Neurological exam: Absent: CN II-XII intact, oriented X3, no focal deficits, pronater drift, facial droop, speech deficit - Skin Skin exam: Present: dry, intact Internal Medicine: Result - Labs CBC & Chem 7: 11/03/17 09:51 11/03/17 04:00 Labs: Short CBC 11/03/17 Range/Units 09:51 WBC 5.3 (4.3-11.1) K/mcL Hgb 10.5 L (11.5-15.4) g/dL Hct 32.9 L (35.3-44.9) % Plt Count 130 L (140-400) K/mcL Neutrophils # 3.6 (1.6-8.9) K/mcL BMP 11/03/17 04:00 Sodium 135 L Potassium 3.3 L Chloride 111 H Carbon Dioxide 21 L BUN 4 L Creatinine 0.54 L Glucose 139 H Calcium 6.8 L - ABG Interpretation ABG results: PT/INR, D-dimer PT 13.4 Seconds (9.4-12.1) H 10/27/17 10:21 - VTE Documentation of Mechanical Device: Intermittent pneumatic compression device Consult Discharge Plan - Plan Referrals: NONE,PCP [Primary Care Provider] - <Bruno Flores - Last Filed: 11/03/17 18:46> Date of Encounter: 11/03/17 - Assessment and plan (1) Sepsis Current Visit: Yes Status: Resolved Qualifiers: Sepsis type: Stephania Qualified Code(s): B37.7 - Candidal sepsis (2) Central line-associated bloodstream infection Current Visit: Yes Status: Acute Qualifiers: Encounter type: subsequent encounter Qualified Code(s): T80.211D - Bloodstream infection due to central venous catheter, subsequent encounter (3) Pneumonia Current Visit: Yes Status: Acute Qualifiers: Pneumonia type: aspiration pneumonia Aspiration pneumonia type: unspecified Laterality: right Lung location: lower lobe of lung Qualified Code(s): J69.0 - Pneumonitis due to inhalation of food and vomit (4) Protein calorie malnutrition Current Visit: Yes Status: Chronic Qualifiers: Protein-calorie malnutrition severity: severe Qualified Code(s): E43 - Unspecified severe protein-calorie malnutrition (5) Anemia Current Visit: Yes Status: Chronic Qualifiers: Anemia type: other cause Other causes of anemia: chronic disease, other Qualified Code(s): D63.8 - Anemia in other chronic diseases classified elsewhere (6) Progressive supranuclear palsy Current Visit: No Status: Chronic - Constitutional Vitals: Temp Pulse Resp BP Pulse Ox 97.7 F 58 16 143/83 98 11/03/17 16:22 11/03/17 16:22 11/03/17 16:22 11/03/17 16:22 11/03/17 16:22 Internal Medicine: Result - Labs CBC & Chem 7: 11/03/17 09:51 11/03/17 04:00 Labs: Short CBC 11/03/17 Range/Units 09:51 WBC 5.3 (4.3-11.1) K/mcL Hgb 10.5 L (11.5-15.4) g/dL Hct 32.9 L (35.3-44.9) % Plt Count 130 L (140-400) K/mcL Neutrophils # 3.6 (1.6-8.9) K/mcL BMP 11/03/17 04:00 Sodium 135 L Potassium 3.3 L Chloride 111 H Carbon Dioxide 21 L BUN 4 L Creatinine 0.54 L Glucose 139 H Calcium 6.8 L - ABG Interpretation ABG results: PT/INR, D-dimer PT 13.4 Seconds (9.4-12.1) H 10/27/17 10:21 - Attending Attestation I examined this patient and my medical decision-making was reviewed with the Resident Physician on 11/03/17. I agree with the documented findings, disposition and treatment plan as described except to the extent set forth below. Ms Miguel is currently admitted for candidemia. She remains moderate to high risk due to potential for worsening clinical status. Ms Miguel appears comfortable. No new issues overnight. Exam alert. Comfortable Mucus membranes dry Heart reg No wheeze abd soft I/P 1. Candidemia - CLABSI present on admission 2. Supranuclear palsy Further diagnoses and plan as above POA requests reeval for PEG.
[2017-11-03] MEDS: D5% in 0.45% NACL w KCl 10 MEQ/1,000 ML MLS IVC SCH (18:38)
[2017-11-04] MEDS: Insulin LISPRO 300 UNITS/3 ML VIAL SQ SCH ×4 (00:22→16:55)
[2017-11-04] MEDS: Piperacillin/Tazobactam 3.375 GM in 0.9 % Sodium Chloride Mini Bag 100 ML IVPB SCH ×3 (01:18→16:43)
[2017-11-04 04:53] LABS: Alanine Aminotransferase 34 Units/L (7-52); Albumin 2.4 g/dL (3.5-5.7); Albumin/Globulin Ratio 0.8 (1.1-2.2); Alkaline Phosphatase 78 Units/L (34-104); Aspartate Amino Transferase 26 Units/L (13-39); BUN/Creatinine Ratio 6 (6-26); Bilirubin,Total 0.6 mg/dL (0.3-1.0); Blood Urea Nitrogen 3 mg/dL (8-23); Calcium 7.8 mg/dL (8.6-10.3); Carbon Dioxide 22 mEq/L (23-29); Chloride 112 mEq/L (98-107); Globulin 2.9 g/dL (2.4-3.5); Glucose 118 mg/dL (70-105); Osmolality,Calculated 286 (280-300); Potassium 3.9 mEq/L (3.5-5.1); Sodium 139 mEq/L (136-145); Total Protein 5.3 g/dL (6.4-8.9); eGFR For African Americans > 60 (> 60); eGFR For Non-African Americans > 60 (> 60)
[2017-11-04] MEDS: Pantoprazole 40 MG VIAL IVP SCH (10:29)
[2017-11-04 11:32] LABS: Hemoglobin 11.2 g/dL (11.5-15.4); Immature Granulocytes % 0.2 % (0-4)
[2017-11-04 11:34] LABS: Basophils % 0.5 %; Eosinophils # 0.2 K/mcL (0.0-0.6); Eosinophils % 4.5 %; Hematocrit 35.1 % (35.3-44.9); Immature Platelets 2.9 % (1.1-6.1); Lymphocytes # 1.1 K/mcL (0.6-4.6); Lymphocytes % 26.4 %; Mean Corpuscular HGB Conc 31.9 g/dL (31.6-35.5); Mean Corpuscular Hemoglobin 26.1 pg (28.0-33.3); Mean Corpuscular Volume 81.8 fL (83.0-100.0); Mean Platelet Volume 10.7 fL (9.4-12.4); Monocytes # 0.3 K/mcL (0.0-1.3); Monocytes % 6.9 %; Neutrophils # 2.6 K/mcL (1.6-8.9); Platelet Count 92 K/mcL (140-400); Red Blood Count 4.29 M/mcL (3.82-4.97); Red Cell Distribution Width 16.7 % (11.5-14.5); Segmented Neutrophils % 61.5 %
--- NOTE | 2017-11-04 11:36 | Infectious Disease Progress No ---
Date of Encounter: 11/04/17 Time of Encounter: 11:35 - Assessment and Plan (1) Sepsis Current Visit: Yes Status: Resolved The patient had severe sepsis on admission: four SIRS criteria plus elevated LFTs and thrombocytopenia. She developed hypotension responsive to IV fluids after admission. Likely secondary to candidemia, UTI, and PNA. Improved. Tachycardia and tachypnea and hypotension have resolved. She has been afebrile. Leukopenia and thrombocytopenia improved. LFTs have normalized. Blood cultures drawn 10/26/17 are positive 2/2 sets for C. parapsilosis per the PCR (1 drawn from PICC and 1 drawn from peripheral stick). Repeat blood cultures x 2 sets drawn 10/29/17 are negative. Qualifiers: Sepsis type: Stephania Qualified Code(s): B37.7 - Candidal sepsis (2) Candidemia Current Visit: Yes Status: Acute Causative organism: C. parapsilosis. Source likely the patient's PICC line and TPN. Blood cultures drawn 10/26/17 are positive 2/2 sets for C. parapsilosis (1 drawn from PICC and 1 from peripheral stick). Repeat blood cultures drawn 10/29/17 are negative 2/2 sets. PICC line removed 10/28/17. Given the patient's frail state, I'm not sure that continuing TPN is the best option for the patient when she has a functioning GI system and re-inserting a PICC line and re-starting TPN puts her at high risk for recurrence of candidemia. The patient's POA has agreed to a GI means of feeding the patient. IR has refused to place PEG tube previously. GI thinks a J-tube may be the best option. Awaiting surgical input. If not able/willing to perform here, may need to transfer to other facility where it can be done. Continue fluconazole 200mg IV daily (day 5). Opthalmology evaluation noted and appreciated. Duration of treatment depends on the clinical picture, but likely 14 days from the first set of negative blood cultures. Treat through 11/11/17. Monitor renal and liver function and dose-adjust antibiotics. Okay to re-insert PICC line if/when needed if the patient is to continue TPN. Discussed with the primary team. (3) Pneumonia Current Visit: Yes Status: Acute Causative organism unclear. Location: RLL Aspiration vs. HCAP. The patient is at risk for MDR pathogens due to her frail state and living in an ECF, but she has no history of this. The patient's mental status puts at risk for silent aspiration, but she is unable to undergo swallow evaluation and she has been strictly NPO for several months now. S. pneumo and Legionella UAT negative. Repeat CXR shows progression of left basilar infiltrate, but improvement in the right basilar infiltrate. Continue Vancomycin IV. Pharmacy to dose. Goal trough ~15 (day 9). Continue Zosyn 3.375 grams IV Q8H for now (day 10). Duration of treatment depends on the clinical picture, but recommend completing a 10 day course of both Vanc and Zosyn. Discontinue Zosyn after last dose today. Monitor renal function and for drug toxicity and dose-adjust antibiotics. Qualifiers: Pneumonia type: aspiration pneumonia Aspiration pneumonia type: unspecified Laterality: right Lung location: lower lobe of lung Qualified Code(s): J69.0 - Pneumonitis due to inhalation of food and vomit (4) UTI (urinary tract infection) Current Visit: Yes Status: Acute ASB vs true UTI. The patient's mental status precludes her ability to tell me if she was having urinary symptoms. Causative organism MRSA. Continue Vancomycin IV. Pharmacy to dose. Goal trough ~15 (day 9). Duration of treatment depends on the clinical picture, but likely 7-10 days. Remove mane catheter if okay with the primary team. Qualifiers: Urinary tract infection type: site unspecified Hematuria presence: without hematuria Qualified Code(s): N39.0 - Urinary tract infection, site not specified (5) Abdominal pain Current Visit: Yes Status: Resolved CT abdomen and pelvis completed 10/28/17 showed massive rectal stool burden, proximal colonic wall thickening concerning for colitis, significant splenomegaly with several low-density lesions in the spleen that are non- specific as well as small-moderate pleural effusions with lower lobe consolidation and volume loss likely atelectasis vs. PNA, and periportal edema vs. mild intra-hepatic biliary ductal dilatation. Constipation management per the primary team. Continue Zosyn for possible colitis (day 10). Consider GI consult for possible biliary ductal dilatation. Pain management per the primary team. Qualifiers: Abdominal location: generalized Qualified Code(s): R10.84 - Generalized abdominal pain (6) Elevated LFTs Current Visit: Yes Status: Resolved Likely secondary to sepsis. Repeat LFTs are normalized. Monitor closely while on fluconazole. (7) Thrombocytopenia Current Visit: Yes Status: Acute Improved. Likely secondary to sepsis. No acute bleeding noted on exam. Continue to trend. Management per the primary team. Re-check CBC. (8) Anemia Current Visit: Yes Status: Chronic Etiology unclear: poor nutrition + GI loss. FOBT +. Improved after PRBC transfusion. Consider GI consult. Further workup and evaluation per the primary team. Repeat CBC. Qualifiers: Anemia type: other cause Other causes of anemia: chronic disease, other Qualified Code(s): D63.8 - Anemia in other chronic diseases classified elsewhere (9) Hypokalemia Current Visit: No Status: Acute (10) Trismus Current Visit: No Status: Acute Secondary to supranuclear palsy. (11) Protein calorie malnutrition Current Visit: Yes Status: Chronic The patient is unable to take anything PO due to trismus. POA is open to enteral feedings if a tube can be placed. On chronic TPN prior to admission. Nutrition team has been consulted and following. Qualifiers: Protein-calorie malnutrition severity: severe Qualified Code(s): E43 - Unspecified severe protein-calorie malnutrition (12) Progressive supranuclear palsy Current Visit: No Status: Chronic Consider palliative care consult. - Subjective Interval history: Patient seen and examined. No acute events noted overnight. Patient resting quietly in bed, eyes open. No acute distress noted. Patient non-verbal and unable to verbalize. No family at bedside. No acute distress noted. Infect Dis PN-Objective Data - Labs CBC & Chem 7: 11/04/17 08:17 11/04/17 04:15 Labs: Laboratory Results - last 24 hr 11/03/17 11/03/17 11/03/17 11:05 17:52 18:05 Sodium Potassium Chloride Carbon Dioxide BUN Creatinine Est GFR ( Amer) Est GFR (Non-Af Amer) BUN/Creatinine Ratio Glucose POC Glucose 87 117 H Calculated Osmolality Calcium Phosphorus Magnesium Total Bilirubin AST ALT Alkaline Phosphatase Serum Total Protein Albumin Globulin Albumin/Globulin Ratio Vancomycin Trough 26 H 11/03/17 11/04/17 11/04/17 23:41 04:15 04:15 Sodium 139 Potassium 3.9 Chloride 112 H Carbon Dioxide 22 L BUN 3 L Creatinine 0.53 L Est GFR ( Amer) > 60 Est GFR (Non-Af Amer) > 60 BUN/Creatinine Ratio 6 Glucose 118 H POC Glucose 84 Calculated Osmolality 286 Calcium 7.8 L Phosphorus 3.1 Magnesium 2.0 Total Bilirubin 0.6 AST 26 ALT 34 Alkaline Phosphatase 78 Serum Total Protein 5.3 L Albumin 2.4 L Globulin 2.9 Albumin/Globulin Ratio 0.8 L Vancomycin Trough 11/04/17 11/04/17 04:15 05:44 Sodium Potassium Chloride Carbon Dioxide BUN Creatinine Est GFR ( Amer) Est GFR (Non-Af Amer) BUN/Creatinine Ratio Glucose POC Glucose 99 Calculated Osmolality Calcium Phosphorus Magnesium Total Bilirubin AST ALT Alkaline Phosphatase Serum Total Protein Albumin Globulin Albumin/Globulin Ratio Vancomycin Trough 12 H Cultures: Cultures 10/29/17 10:03 Blood Culture - Final Peripheral Venipuncture No growth. 10/29/17 10:02 Blood Culture - Final Peripheral Venipuncture No growth. 10/28/17 18:19 Catheter Tip Culture - Final Intravenous or Arterial Cath Gram Positive Rods 10/29/17 13:54 Legionella Antigen - Final Urine,Catheterized Streptococcus pneumoniae Antigen (M - Final Serology 10/28/17 10/27/17 Range/Units 10:15 23:48 Stool Occult Blood Positive A (Negative) Stl C. diff Tox B Gene Negative (Negative) Exam - Constitutional Vitals: Temp Pulse Resp BP Pulse Ox 96.5 F L 54 20 148/81 99 11/04/17 11:29 11/04/17 11:29 11/04/17 11:29 11/04/17 11:29 11/04/17 11:29 General appearance: average body habitus, no acute distress, no febrile - Head Head exam: Present: atraumatic, normal inspection, normocephalic - Eye Eye exam: Present: normal appearance, PERRL Pupils: Present: normal accommodation - ENT ENT exam: Present: mucous membranes dry - Neck Neck exam: Present: normal inspection - Respiratory Respiratory exam: Present: decreased breath sounds (throughout), CTAB. Absent: rales, respiratory distress, rhonchi, wheezes - Cardiovascular Cardiovascular exam: Present: RRR, +S1, +S2 - GI/Abdominal GI/Abdominal exam: Present: normal bowel sounds, soft. Absent: distended, tenderness - Extremities Exam Extremities exam: Present: normal inspection. Absent: joint swelling, pedal edema, tenderness - Neurological Exam Neurological exam: Present: altered (Non-verbal. Follows some commands.). Absent: strengths equal and symetr throughout (RUE grasp weak. LUE contracted. Moves bilateral feet on command.) - Skin Skin exam: Present: dry, intact, normal color, warm - VTE Documentation of Mechanical Device: Intermittent pneumatic compression device Consult Discharge Plan - Plan Referrals: NONE,PCP [Primary Care Provider] - - Attending Attestation I examined this patient and my medical decision-making was reviewed with the Resident Physician. I agree with the documented findings, disposition and treatment plan as described except to the extent set forth below.
--- NOTE | 2017-11-04 11:52 | Gastroenterology Consult Note ---
<Kai Dyer - Last Filed: 11/04/17 11:50> Date of Encounter: 11/04/17 Time of Encounter: 10:35 - Assessment and plan (1) Protein calorie malnutrition Status: Chronic Assessment and plan: I do not think that inserting a PEG tube in this patient will increase the quality of her life, it will likely prolong pain and suffering for the patient. The patient will remain at risk of aspiration, even with a PEG tube. Dobbhoff insertion failed during last hospitalization. Dr. Thompson suggests a J-tube for nutritional support if patient would tolerate the procedure. Inserting a feeding tube will not delay the progression of the disease. Qualifiers: Protein-calorie malnutrition severity: severe Qualified Code(s): E43 - Unspecified severe protein-calorie malnutrition (2) Progressive supranuclear palsy Status: Chronic (3) Anemia Status: Chronic Assessment and plan: Hgb 8.8 on admission now stable at 11.2. Continue to monitor CBC and transfuse PRBC as needed. Qualifiers: Anemia type: other cause Other causes of anemia: chronic disease, other Qualified Code(s): D63.8 - Anemia in other chronic diseases classified elsewhere - Time Spent With Patient Total time spent is greater than 50% in coordination of care (as documented) at patient's floor/unit and/or counseling patient: GI History of Present Illness - Data of Consult Patient: new to practice Consult date: 11/04/17 Requesting Physician: Bruno Flores DO - Consult Narrative Reason for consult: PEG tube insertion History of present illness: Ms. Miguel is a 72 year old female with PMHx of progressive supranuclear palsy who was sent from long term for fever and shortness of breath. The patient is nonverbal. We have been consulted for possible PEG tube placement. During her previous hospitalization, IR was consulted for PEG tube placement and refused. IR attempted placing Dobbhoff feeding tube which failed as patient could not tolerate the procedure. Palliative Care also made recommendations against the insertion of PEG tube during her last hospitalization. Pt is nonverbal and history obtained from chart review. No family at bedside. Procedures: None NSAIDs: None Anticoagulation: Heparin Past Med Surg Social Fam HX - Past Medical History Medical history: pulmonary embolus, other (Supranuclear palsy) Psychiatric history: no psych history - Past Surgical History Surgical History: appendectomy, orthopedic, other - Social History Smoking Status: Never smoker Smokeless Tobacco Status: No Alcohol use: none Drug use: none - Family History Mother History Unknown: Yes ROS unobtainable: due to mental status - Constitutional Vitals: Temp Pulse Resp BP Pulse Ox 96.5 F L 54 20 148/81 99 11/04/17 11:29 11/04/17 11:29 11/04/17 11:29 11/04/17 11:29 11/04/17 11:29 General appearance: Present: cachectic, no acute distress - Head Head exam: Present: atraumatic, normocephalic - Eye Eye exam: Present: normal appearance, sclera anicteric - ENT ENT exam: Present: mucous membranes dry - Neck Neck exam general surgery: Present: normal inspection, trachea midline - Respiratory Respiratory exam: Present: decreased breath sounds, CTAB. Absent: rales, rhonchi - Cardiovascular Cardiovascular exam: Present: RRR, +S1, +S2 - GI/Abdominal GI/Abdominal exam: Present: soft, no peritoneal signs. Absent: distended, firm , guarding, tenderness - Rectal Rectal exam: Present: deferred - Extremities Exam Extremities exam: Present: warm - Neurological Exam Additional comments: Grasps with right hand to command. Left UE contracted. Nonverbal. - Skin Skin exam: Present: dry, intact, normal color, warm Results - Labs CBC & Chem 7: 11/04/17 08:17 11/04/17 04:15 Labs: Last Result Calcium 7.8 mg/dL (8.6-10.3) L 11/04/17 04:15 Iron 37 mcg/dL (50-170) L 10/28/17 04:12 % Saturation 15 % (15-50) 10/28/17 04:12 Transferrin 178 mg/dL (203-362) L 10/28/17 04:12 Troponin I < 0.03 ng/mL (< 0.04) 10/26/17 18:49 Triglycerides 126 mg/dL (< 150) 10/28/17 04:12 Stool Occult Blood Positive (Negative) A 10/27/17 23:48 Entire Visit Hgb 11.2 g/dL (11.5-15.4) L 11/04/17 08:17 Hct 35.1 % (35.3-44.9) L 11/04/17 08:17 PT 13.4 Seconds (9.4-12.1) H 10/27/17 10:21 Total Bilirubin 0.6 mg/dL (0.3-1.0) 11/04/17 04:15 AST 26 Units/L (13-39) 11/04/17 04:15 ALT 34 Units/L (7-52) 11/04/17 04:15 E. coli (PCR) Not Detected (Not Detect) 10/26/17 18:49 - ABG ABG results: PT/INR, D-dimer PT 13.4 Seconds (9.4-12.1) H 10/27/17 10:21 Consult Discharge Plan - Plan Referrals: NONE,PCP [Primary Care Provider] - <Dima Thompson - Last Filed: 11/22/17 07:52> Date of Encounter: 11/04/17 - Time Spent With Patient Total time spent is greater than 50% in coordination of care (as documented) at patient's floor/unit and/or counseling patient: GI History of Present Illness - Data of Consult Requesting Physician: Bruno Flores DO - Consult Narrative History of present illness: Ms. Miguel is a 72 year old female - Constitutional Vitals: Temp Pulse Resp BP Pulse Ox 97.7 F 50 18 158/77 100 11/05/17 11:47 11/05/17 11:47 11/05/17 11:47 11/05/17 11:47 11/05/17 11:47 Results - Labs CBC & Chem 7: 11/04/17 08:17 11/05/17 05:19 Labs: Last Result Calcium 7.9 mg/dL (8.6-10.3) L 11/05/17 05:19 Iron 37 mcg/dL (50-170) L 10/28/17 04:12 % Saturation 15 % (15-50) 10/28/17 04:12 Transferrin 178 mg/dL (203-362) L 10/28/17 04:12 Troponin I < 0.03 ng/mL (< 0.04) 10/26/17 18:49 Triglycerides 126 mg/dL (< 150) 10/28/17 04:12 Stool Occult Blood Positive (Negative) A 10/27/17 23:48 Entire Visit Hgb 11.2 g/dL (11.5-15.4) L 11/04/17 08:17 Hct 35.1 % (35.3-44.9) L 11/04/17 08:17 PT 13.4 Seconds (9.4-12.1) H 10/27/17 10:21 Total Bilirubin 0.6 mg/dL (0.3-1.0) 11/04/17 04:15 AST 26 Units/L (13-39) 11/04/17 04:15 ALT 34 Units/L (7-52) 11/04/17 04:15 E. coli (PCR) Not Detected (Not Detect) 10/26/17 18:49 - ABG ABG results: PT/INR, D-dimer PT 13.4 Seconds (9.4-12.1) H 10/27/17 10:21 - Attending Attestation Ms. Alejandrina Miguel very unfortunate 72-year-old white female with severe malnutrition and suprabulbar palsy recommend J-tube placement if patient's a candidate I examined this patient and my medical decision-making was reviewed with the Resident Physician. I agree with the documented findings, disposition and treatment plan as described except to the extent set forth below.
--- NOTE | 2017-11-04 13:53 | General Surgery Consult Note ---
Date of Encounter: 11/04/17 Time of Encounter: 13:15 Assessment and Plan (1) Dysphagia Current Visit: No Status: Acute Recommend ethics consultation prior to surgical intervention for feeding tube placement Surgery team agrees that placement of a feeding tube would not improve the quality of the patient's life Will follow and await ethics committee recommendations Qualifiers: Dysphagia type: unspecified Qualified Code(s): R13.10 - Dysphagia, unspecified (2) Aspiration pneumonia due to gastric secretions Current Visit: No Status: Acute Recommend ethics consultation prior to surgical intervention for feeding tube placement Surgery team agrees that placement of a feeding tube would not improve the quality of the patient's life Will follow and await ethics committee recommendations Qualifiers: Laterality: right Lung location: middle lobe of lung Qualified Code(s): J69.0 - Pneumonitis due to inhalation of food and vomit (3) Protein calorie malnutrition Current Visit: Yes Status: Chronic Recommend ethics consultation prior to surgical intervention for feeding tube placement Surgery team agrees that placement of a feeding tube would not improve the quality of the patient's life Will follow and await ethics committee recommendations Qualifiers: Protein-calorie malnutrition severity: severe Qualified Code(s): E43 - Unspecified severe protein-calorie malnutrition (4) Progressive supranuclear palsy Current Visit: No Status: Chronic (5) UTI (urinary tract infection) Current Visit: Yes Status: Acute Antibiotic management per ID Qualifiers: Urinary tract infection type: site unspecified Hematuria presence: without hematuria Qualified Code(s): N39.0 - Urinary tract infection, site not specified (6) Pneumonia Current Visit: Yes Status: Acute Antibiotic management per ID Qualifiers: Pneumonia type: aspiration pneumonia Aspiration pneumonia type: unspecified Laterality: right Lung location: lower lobe of lung Qualified Code(s): J69.0 - Pneumonitis due to inhalation of food and vomit (7) Candidemia Current Visit: Yes Status: Acute Antifungal management per ID History of Present Illness Consult date: 11/04/17 Reason for consult: other (feeding tube placement) History of present illness: Ms. Miguel is a 72 year old female with a past medical history significant for progressive supranuclear palsy and pulmonary embolism. She is nonverbal and unable to provide any information. Information is obtained from the chart and a friend who is at the bedside. The patient has been a resident at an [facility] due to her declining condition and was transferred to the ED with fevers. She is being treated for a UTI, pneumonia, huy and sepsis. She is being seen and evaluated by infectious disease for treatment. The patient has been on TPN since September of 2017 for nutritional support. The POA is requesting transfer of the patient to a facility which will not accept TPN. The primary team is requesting feeding tube placement for nutritional support. The patient has failed prior NG feeds and dobhoff placement. Interventional radiology and gastroenterology have recommended against feeding tube placement due to the risks outweighing the benefits. We have been asked to see and evaluate the patient for recommendations. Past Med Surg Social Fam HX - Past Medical History Source: old records reviewed Medical history: pulmonary embolus, other (Supranuclear palsy) Psychiatric history: no psych history - Past Surgical History Surgical History: appendectomy, orthopedic, other - Social History Smoking Status: Never smoker Smokeless Tobacco Status: No Alcohol use: none Drug use: none - Family History Mother History Unknown: Yes Medications and Allergies Dextrose Gel [Gluctose] 15 gm PO ONCE PRN gel..gram. 09/06/17 [Rx] Glucagon, Human Recombinant [Glucagen] 1 mg IM ONCE PRN vial 09/06/17 [Rx] Lacri-Lube [Lacri-lube] 1 appl BOTH EYES BID tube 09/06/17 [Rx] Acetaminophen [Tylenol 650mg SUPP] 650 mg RC Q4H PRN 10/26/17 [History] Dextrose 10 % in Water [Dextrose 10%-Water IV Solution] 1,000 ml IV AD 10/26/17 [History] Heparin 5,000 unit SQ Q12H 10/26/17 [History] Morphine Oral CONC [Roxanol] 5 mg SL Q4H PRN 10/26/17 [History] Mvi, Adult No.4, Vit K, 1 of 2 [Infuvite Adult Vial 1] 5 ml IV AD 10/26/17 [ History] Mvi, Adult No.4, Vit K, 2 of 2 [Infuvite Adult Vial 2] 5 ml IV AD 10/26/17 [ History] Ondansetron [Zofran] 4 mg IM Q4H PRN 10/26/17 [History] Polyvinyl Alcohol [Artificial Tears] 1 drop BOTH EYES Q4H PRN 10/26/17 [History] Tpn 3,000 ml IV DAILY 10/26/17 [History] 3 Allergy/AdvReac Type Severity Reaction Status Date / Time codeine Allergy Itching Verified 10/26/17 18:24 Review of Systems ROS unobtainable: due to mental status All systems PM: The remainder of the systems were reviewed and are negative General Surgery Exam Initial Vital Signs Temp Pulse Resp BP Pulse Ox 103.8 F H 150 36 111/72 91 10/26/17 18:08 10/26/17 18:08 10/26/17 18:08 10/26/17 18:08 10/26/17 18:08 - General physical appearance chronically ill, other (contracted) - Eyes PERRL - ENT dry mucosa - Neck trachea midline - Respiratory normal respiratory effort, clear to auscultation, other (significantly diminished breath sounds bilaterally) - Cardiovascular Cardiovascular exam: Present: bradycardia - Abdomen Abdomen general surgery: Present: bowel sounds present, soft - Integumentary Integumentary general surgery: Present: warm and dry - Musculoskeletal Present: other (severe physical deconditioning and contractures noted) - Psychiatric Psychiatric general surgery: Present: other (Unable to assess) Exam Initial Vital Signs Temp Pulse Resp BP Pulse Ox 103.8 F H 150 36 111/72 91 10/26/17 18:08 10/26/17 18:08 10/26/17 18:08 10/26/17 18:08 10/26/17 18:08 Results - Labs 11/04/17 08:17 11/04/17 04:15 Abnormal lab results WBC 4.2 K/mcL (4.3-11.1) L 11/04/17 08:17 Hgb 11.2 g/dL (11.5-15.4) L 11/04/17 08:17 Hct 35.1 % (35.3-44.9) L 11/04/17 08:17 MCV 81.8 fL (83.0-100.0) L 11/04/17 08:17 MCH 26.1 pg (28.0-33.3) L 11/04/17 08:17 RDW 16.7 % (11.5-14.5) H 11/04/17 08:17 Plt Count 92 K/mcL (140-400) L 11/04/17 08:17 Nucleated RBCs/100 WBC 0.4 /100 WBC (0) H 11/03/17 09:51 Platelet Estimate Decreased (Normal) L 10/29/17 03:57 Hypochromasia Present (Not Present) A 10/29/17 03:57 Anisocytosis 1+ (Not Present) A 10/28/17 09:45 PT 13.4 Seconds (9.4-12.1) H 10/27/17 10:21 VBG pH 7.47 pH Units (7.32-7.42) H 10/26/17 20:04 VBG pCO2 30 mmHg (41-51) L 10/26/17 20:04 VBG pO2 193 mmHg (25-50) H 10/26/17 20:04 Chloride 112 mEq/L (98-107) H 11/04/17 04:15 Carbon Dioxide 22 mEq/L (23-29) L 11/04/17 04:15 BUN 3 mg/dL (8-23) L 11/04/17 04:15 Creatinine 0.53 mg/dL (0.60-1.20) L 11/04/17 04:15 Glucose 118 mg/dL (70-105) H 11/04/17 04:15 Calcium 7.8 mg/dL (8.6-10.3) L 11/04/17 04:15 Iron 37 mcg/dL (50-170) L 10/28/17 04:12 Transferrin 178 mg/dL (203-362) L 10/28/17 04:12 Serum Total Protein 5.3 g/dL (6.4-8.9) L 11/04/17 04:15 Albumin 2.4 g/dL (3.5-5.7) L 11/04/17 04:15 Albumin/Globulin Ratio 0.8 (1.1-2.2) L 11/04/17 04:15 Urine Clarity Turbid (Clear) A 10/26/17 18:42 Urine Blood Moderate (Negative) H 10/26/17 18:42 Urine Nitrite Positive (Negative) A 10/26/17 18:42 Ur Leukocyte Esterase Large (Negative) H 10/26/17 18:42 Urine Microscopic WBC TNTC per hpf (0-3) H 10/26/17 18:42 Ur Culture Indicated? YES (NO) A 10/26/17 18:42 Stool Occult Blood Positive (Negative) A 10/27/17 23:48 Vancomycin Trough 12 mcg/mL (5-10) H 11/04/17 04:15 C. parapsilosis (PCR) DETECTED (Not Detect) A 10/26/17 18:49 Diabetes panel 11/04/17 Range/Units 04:15 Sodium 139 (136-145) mEq/L Potassium 3.9 (3.5-5.1) mEq/L Chloride 112 H (98-107) mEq/L Carbon Dioxide 22 L (23-29) mEq/L BUN 3 L (8-23) mg/dL Creatinine 0.53 L (0.60-1.20) mg/dL Glucose 118 H (70-105) mg/dL Calcium 7.8 L (8.6-10.3) mg/dL AST 26 (13-39) Units/L ALT 34 (7-52) Units/L Alkaline Phosphatase 78 (34-104) Units/L Albumin 2.4 L (3.5-5.7) g/dL Calcium panel 11/04/17 11/04/17 Range/Units 04:15 04:15 Calcium 7.8 L (8.6-10.3) mg/dL Phosphorus 3.1 (2.7-4.5) mg/dL Albumin 2.4 L (3.5-5.7) g/dL Pituitary panel 11/04/17 Range/Units 04:15 Sodium 139 (136-145) mEq/L Potassium 3.9 (3.5-5.1) mEq/L Chloride 112 H (98-107) mEq/L Carbon Dioxide 22 L (23-29) mEq/L BUN 3 L (8-23) mg/dL Creatinine 0.53 L (0.60-1.20) mg/dL Glucose 118 H (70-105) mg/dL Calcium 7.8 L (8.6-10.3) mg/dL Adrenal panel 11/04/17 Range/Units 04:15 Sodium 139 (136-145) mEq/L Potassium 3.9 (3.5-5.1) mEq/L Chloride 112 H (98-107) mEq/L Carbon Dioxide 22 L (23-29) mEq/L BUN 3 L (8-23) mg/dL Creatinine 0.53 L (0.60-1.20) mg/dL Glucose 118 H (70-105) mg/dL Calcium 7.8 L (8.6-10.3) mg/dL Total Bilirubin 0.6 (0.3-1.0) mg/dL AST 26 (13-39) Units/L ALT 34 (7-52) Units/L Alkaline Phosphatase 78 (34-104) Units/L Albumin 2.4 L (3.5-5.7) g/dL All other labs normal. - Imaging Additional studies: Abdomen/Pelvis CT 10/28/17 14:38 IMPRESSION: Examination limited by motion artifact and patient arm positioning. Massive rectal stool burden. There is moderate free fluid in the pelvis. Proximal colonic wall thickening is suspected. Findings may indicate colitis. Significant splenomegaly. Several low-density lesions in the spleen are nonspecific. Portal vein enlargement may indicate portal hypertension. Small-moderate pleural effusions. Lower lobe consolidation and volume loss, atelectasis versus pneumonia. Periportal edema versus mild intrahepatic biliary ductal dilation. D/ / Westley Mckoy MD / Westley Mckoy MD Interpreting Provider: Westley Mckoy MD Chest X-Ray 11/01/17 13:58 IMPRESSION: Interval progression of left basilar infiltrate and effusion. Partial interval clearing at the right lung base. Continued plain film follow-up recommended. D/ / Ger Baker MD / Ger Baker MD Interpreting Provider: Ger Baker MD Consult Discharge Plan - Plan Referrals: NONE,PCP [Primary Care Provider] - - Attending Attestation For this encounter, I have reviewed the VISUALIZER or PA documentation, treatment plan, and medical decision making; and I have had face to face time with this patient.
[2017-11-04] MEDS: Fluconazole 200 MG/100 ML 200 MG/100 ML BAG IVPB SCH (14:55)
[2017-11-04] MEDS: D5% in 0.45% NACL w KCl 10 MEQ/1,000 ML MLS IVC SCH (14:55)
--- NOTE | 2017-11-04 15:25 | Internal Med Progress Note ---
<Kai Cunha - Last Filed: 11/04/17 15:22> Date of Encounter: 11/04/17 Time of Encounter: 08:30 - Assessment and plan (1) Protein calorie malnutrition Current Visit: Yes Status: Chronic Assessment and plan: Had long conversation with VALENTÍN Todd, about nutrition POA does not want TPN, ID recommends against TPN IR has been consulted for PEG previously, refused based on ethical concerns They believed that this may prolong suffering I have consulted GI who recommend against PEG insertion due to risk of aspiration, and state that J-Tube is only possible option I spoke with General surgery who additionally are uneasy about this endeavor They have asked for an ethics consult prior to proceeding I have entered an ethics consult Qualifiers: Protein-calorie malnutrition severity: severe Qualified Code(s): E43 - Unspecified severe protein-calorie malnutrition (2) Sepsis Current Visit: Yes Status: Resolved Assessment and plan: Sepsis secondary to UTI vs. Community Acquired Sepsis criteria present on admission: Hypotension, tachycardia, tachypnea, leukopenia with PNA and UTI Broad spectrum antibiotics We will watch closely and re-evaluate as needed / Zosyn day 9 Fluconazole day 5 Vancomycin day 7 ( stopped after the first day) ID following the case Aspiration precautions Qualifiers: Sepsis type: Stephania Qualified Code(s): B37.7 - Candidal sepsis (3) Anemia Current Visit: Yes Status: Chronic Assessment and plan: Likely secondary to poor nutrition status and blood loss Stool positive for occult blood, stable since then Monitor Qualifiers: Anemia type: other cause Other causes of anemia: chronic disease, other Qualified Code(s): D63.8 - Anemia in other chronic diseases classified elsewhere (4) Abdominal pain Current Visit: Yes Status: Resolved Assessment and plan: Suspected abdominal pain patient cannot give specific history She has been having mucoid stool that is occult blood positive We will CT the abdomen for potential source of infection vs. ischemic bowel 10/[address] shows Massive rectal stool burden. There is moderate free fluid in the pelvis. Proximal colonic wall thickening is suspected. Findings may indicate colitis. Significant splenomegaly. Several low-density lesions in the spleen are nonspecific. Portal vein enlargement may indicate portal hypertension. Small-moderate pleural effusions. Lower lobe consolidation and volume loss, atelectasis versus pneumonia. Periportal edema versus mild intrahepatic biliary ductal dilation. Recieved an enema in the evening and had large BM We will give another enema today, monitor for pain Currently being treated with Zosyn, which will cover potential abdominal infections / Resolved Qualifiers: Abdominal location: generalized Qualified Code(s): R10.84 - Generalized abdominal pain (5) UTI (urinary tract infection) Current Visit: Yes Status: Acute Assessment and plan: MRSA in urine Patient is on Zosyn and Vancomycin Qualifiers: Urinary tract infection type: site unspecified Hematuria presence: without hematuria Qualified Code(s): N39.0 - Urinary tract infection, site not specified (6) Pneumonia Current Visit: Yes Status: Acute Assessment and plan: CXR shows RLL pneumonia, Likely HCAP vs. Aspiration Patient does not have cough at this time On IV Antibiotics for coverage of HCAP Qualifiers: Pneumonia type: aspiration pneumonia Aspiration pneumonia type: unspecified Laterality: right Lung location: lower lobe of lung Qualified Code(s): J69.0 - Pneumonitis due to inhalation of food and vomit (7) Generalized pain Current Visit: Yes Status: Chronic Assessment and plan: Control pain (8) Progressive supranuclear palsy Current Visit: No Status: Chronic Assessment and plan: The patient has history of PNP Chronic trismus, neck contractures She is non-verbal We will continue to treat pain (9) DVT prophylaxis Current Visit: No Status: Acute Assessment and plan: SQ Heparin held due to occult blood in stool with low hemoglobin Start SCDs - Subjective Interval history: The patient appears largely unchanged from prior. ID has recommended that the patient not receive TPN. The POA is insistent that we pursue a PEG tube, so I consulted GI and Surgery who both seem reluctant to recommend to insert a feeding tube. - Constitutional Vitals: Temp Pulse Resp BP Pulse Ox 96.5 F L 54 20 148/81 99 11/04/17 11:29 11/04/17 11:29 11/04/17 11:29 11/04/17 11:29 11/04/17 11:29 General appearance: Present: A&O X 0, mild distress, underweight Exam: - Head Head exam: Present: atraumatic, normocephalic - Eye Eye exam: Present: PERRL, conjuntiva pink, sclera anicteric Pupils: Present: PERRL - Neck Neck exam: Present: supple, trachea midline. Absent: lymphadenopathy - Respiratory Respiratory exam: Present: decreased breath sounds, CTAB, rales. Absent: accessory muscle use, rhonchi, wheezes - Cardiovascular Cardiovascular exam: Present: RRR, +S1, +S2. Absent: diastolic murmur, gallop, rubs, systolic murmur - GI/Abdominal GI/Abdominal exam: Present: distended, normal bowel sounds, soft, no peritoneal signs. Absent: tenderness - Extremities Exam Extremities exam: Present: warm, radial pulses palpable and symmetrical. Absent : calf tenderness, cyanotic, pedal edema Additional comments: Generalized weakness All extremities are atrophied Upper extremities are minimally contracted - Neurological Exam Neurological exam: Absent: CN II-XII intact, oriented X3, no focal deficits, pronater drift, facial droop, speech deficit - Skin Skin exam: Present: dry, intact Internal Medicine: Result - Labs CBC & Chem 7: 11/04/17 08:17 11/04/17 04:15 Labs: Short CBC 11/04/17 Range/Units 08:17 WBC 4.2 L (4.3-11.1) K/mcL Hgb 11.2 L (11.5-15.4) g/dL Hct 35.1 L (35.3-44.9) % Plt Count 92 L (140-400) K/mcL Neutrophils # 2.6 (1.6-8.9) K/mcL BMP 11/04/17 04:15 Sodium 139 Potassium 3.9 Chloride 112 H Carbon Dioxide 22 L BUN 3 L Creatinine 0.53 L Glucose 118 H Calcium 7.8 L Liver Function 11/04/17 Range/Units 04:15 Total Bilirubin 0.6 (0.3-1.0) mg/dL AST 26 (13-39) Units/L ALT 34 (7-52) Units/L Alkaline Phosphatase 78 (34-104) Units/L Albumin 2.4 L (3.5-5.7) g/dL - ABG Interpretation ABG results: PT/INR, D-dimer PT 13.4 Seconds (9.4-12.1) H 10/27/17 10:21 - VTE Documentation of Mechanical Device: Intermittent pneumatic compression device Consult Discharge Plan - Plan Referrals: NONE,PCP [Primary Care Provider] - <Bruno Flores - Last Filed: 11/04/17 19:52> Date of Encounter: 11/04/17 - Assessment and plan (1) Sepsis Current Visit: Yes Status: Resolved Qualifiers: Sepsis type: Stephania Qualified Code(s): B37.7 - Candidal sepsis (2) Central line-associated bloodstream infection Current Visit: Yes Status: Acute Qualifiers: Encounter type: subsequent encounter Qualified Code(s): T80.211D - Bloodstream infection due to central venous catheter, subsequent encounter (3) Pneumonia Current Visit: Yes Status: Acute Qualifiers: Pneumonia type: aspiration pneumonia Aspiration pneumonia type: unspecified Laterality: right Lung location: lower lobe of lung Qualified Code(s): J69.0 - Pneumonitis due to inhalation of food and vomit (4) Protein calorie malnutrition Current Visit: Yes Status: Chronic Qualifiers: Protein-calorie malnutrition severity: severe Qualified Code(s): E43 - Unspecified severe protein-calorie malnutrition (5) Anemia Current Visit: Yes Status: Chronic Qualifiers: Anemia type: other cause Other causes of anemia: chronic disease, other Qualified Code(s): D63.8 - Anemia in other chronic diseases classified elsewhere (6) Progressive supranuclear palsy Current Visit: No Status: Chronic - Constitutional Vitals: Temp Pulse Resp BP Pulse Ox 97.7 F 57 16 141/77 98 11/04/17 19:05 11/04/17 19:05 11/04/17 19:05 11/04/17 19:05 11/04/17 19:05 Internal Medicine: Result - Labs CBC & Chem 7: 11/04/17 08:17 11/04/17 04:15 Labs: Short CBC 11/04/17 Range/Units 08:17 WBC 4.2 L (4.3-11.1) K/mcL Hgb 11.2 L (11.5-15.4) g/dL Hct 35.1 L (35.3-44.9) % Plt Count 92 L (140-400) K/mcL Neutrophils # 2.6 (1.6-8.9) K/mcL BMP 11/04/17 04:15 Sodium 139 Potassium 3.9 Chloride 112 H Carbon Dioxide 22 L BUN 3 L Creatinine 0.53 L Glucose 118 H Calcium 7.8 L Liver Function 11/04/17 Range/Units 04:15 Total Bilirubin 0.6 (0.3-1.0) mg/dL AST 26 (13-39) Units/L ALT 34 (7-52) Units/L Alkaline Phosphatase 78 (34-104) Units/L Albumin 2.4 L (3.5-5.7) g/dL - ABG Interpretation ABG results: PT/INR, D-dimer PT 13.4 Seconds (9.4-12.1) H 10/27/17 10:21 - Attending Attestation I examined this patient and my medical decision-making was reviewed with the Resident Physician on 11/04/17. I agree with the documented findings, disposition and treatment plan as described except to the extent set forth below. Ms Miguel is currently admitted for candidemia related to PICC line. She remains moderate to high risk due to potential for worsening clinical status. Ms Miguel is nonverbal but appears comfortable. Exam alert. Comfortable at this time Mucus membranes dry Heart reg No wheeze abd soft I/P 1. Candidemia 2. supranuclear palsy Further diagnoses and plan as above. Ethics consult noted and appreciated.
[2017-11-05] MEDS: Piperacillin/Tazobactam 3.375 GM in 0.9 % Sodium Chloride Mini Bag 100 ML IVPB SCH ×2 (00:29→08:16)
[2017-11-05] MEDS: Insulin LISPRO 300 UNITS/3 ML VIAL SQ SCH ×3 (00:29→12:30)
[2017-11-05 06:28] LABS: BUN/Creatinine Ratio 7 (6-26); Blood Urea Nitrogen 4 mg/dL (8-23); Calcium 7.9 mg/dL (8.6-10.3); Carbon Dioxide 24 mEq/L (23-29); Chloride 108 mEq/L (98-107); Glucose 99 mg/dL (70-105); Magnesium 1.8 mg/dL (1.6-2.6); Osmolality,Calculated 283 (280-300); Phosphorous 2.9 mg/dL (2.7-4.5); Potassium 3.3 mEq/L (3.5-5.1); Sodium 138 mEq/L (136-145); eGFR For African Americans > 60 (> 60); eGFR For Non-African Americans > 60 (> 60)
[2017-11-05] MEDS: Pantoprazole 40 MG VIAL IVP SCH (08:16)
[2017-11-05] MEDS: Fluconazole 200 MG/100 ML 200 MG/100 ML BAG IVPB SCH (08:19)
--- NOTE | 2017-11-05 09:46 | Infectious Disease Progress No ---
Date of Encounter: 11/05/17 Time of Encounter: 09:44 - Assessment and Plan (1) Sepsis Current Visit: Yes Status: Resolved The patient had severe sepsis on admission: four SIRS criteria plus elevated LFTs and thrombocytopenia. She developed hypotension responsive to IV fluids after admission. Likely secondary to candidemia, UTI, and PNA. Improved. Tachycardia and tachypnea and hypotension have resolved. She has been afebrile. Leukopenia and thrombocytopenia improved. LFTs have normalized. Blood cultures drawn 10/26/17 are positive 2/2 sets for C. parapsilosis per the PCR (1 drawn from PICC and 1 drawn from peripheral stick). Repeat blood cultures x 2 sets drawn 10/29/17 are negative. Qualifiers: Sepsis type: Stephania Qualified Code(s): B37.7 - Candidal sepsis (2) Candidemia Current Visit: Yes Status: Acute Causative organism: C. parapsilosis. Source likely the patient's PICC line and TPN. Blood cultures drawn 10/26/17 are positive 2/2 sets for C. parapsilosis (1 drawn from PICC and 1 from peripheral stick). Repeat blood cultures drawn 10/29/17 are negative 2/2 sets. PICC line removed 10/28/17. Given the patient's frail state, I'm not sure that continuing TPN is the best option for the patient when she has a functioning GI system and re-inserting a PICC line and re-starting TPN puts her at high risk for recurrence of candidemia. The patient's POA has agreed to a GI means of feeding the patient. IR has refused to place PEG tube previously. GI thinks a J-tube may be the best option due to aspiration risk. Surgical team has requested ethics consult as feeding the patient will not alter her clinical course. Continue fluconazole 200mg IV daily (day 8). Opthalmology evaluation noted and appreciated. Duration of treatment depends on the clinical picture, but likely 14 days from the first set of negative blood cultures. Treat through 11/11/17. Monitor renal and liver function and dose-adjust antibiotics. Okay to re-insert PICC line if/when needed if the patient is to continue TPN. Discussed with the primary team. (3) Pneumonia Current Visit: Yes Status: Acute Causative organism unclear. Location: RLL Aspiration vs. HCAP. The patient is at risk for MDR pathogens due to her frail state and living in an ECF, but she has no history of this. The patient's mental status puts at risk for silent aspiration, but she is unable to undergo swallow evaluation and she has been strictly NPO for several months now. S. pneumo and Legionella UAT negative. Repeat CXR shows progression of left basilar infiltrate, but improvement in the right basilar infiltrate. Continue Vancomycin IV through today, then discontinue. Pharmacy to dose. Goal trough ~15 (day 10). Discontinue Zosyn. She has completed a 10 day course. Duration of treatment depends on the clinical picture, but recommend completing a 10 day course of both Vanc and Zosyn. Discontinue Vancomycin after last dose today. Monitor renal function and for drug toxicity and dose-adjust antibiotics. Qualifiers: Pneumonia type: aspiration pneumonia Aspiration pneumonia type: unspecified Laterality: right Lung location: lower lobe of lung Qualified Code(s): J69.0 - Pneumonitis due to inhalation of food and vomit (4) UTI (urinary tract infection) Current Visit: Yes Status: Acute ASB vs true UTI. The patient's mental status precludes her ability to tell me if she was having urinary symptoms. Causative organism MRSA. Continue Vancomycin IV through today, then discontinue. Pharmacy to dose. Goal trough ~15 (day 10). Duration of treatment depends on the clinical picture, but likely 7-10 days. Remove mane catheter if okay with the primary team. Qualifiers: Urinary tract infection type: site unspecified Hematuria presence: without hematuria Qualified Code(s): N39.0 - Urinary tract infection, site not specified (5) Abdominal pain Current Visit: Yes Status: Resolved CT abdomen and pelvis completed 10/28/17 showed massive rectal stool burden, proximal colonic wall thickening concerning for colitis, significant splenomegaly with several low-density lesions in the spleen that are non- specific as well as small-moderate pleural effusions with lower lobe consolidation and volume loss likely atelectasis vs. PNA, and periportal edema vs. mild intra-hepatic biliary ductal dilatation. Clinically improved. No evidence of abdominal pain and patient is no longer moaning. Constipation management per the primary team. Completed 10 days of Zosyn. Consider GI consult for possible biliary ductal dilatation. Pain management per the primary team. Qualifiers: Abdominal location: generalized Qualified Code(s): R10.84 - Generalized abdominal pain (6) Elevated LFTs Current Visit: Yes Status: Resolved Likely secondary to sepsis. Repeat LFTs are normalized. Monitor closely while on fluconazole. LFTs 11/04/17 were normal. (7) Thrombocytopenia Current Visit: Yes Status: Acute Improved. Likely secondary to sepsis. No acute bleeding noted on exam. Continue to trend. Management per the primary team. Re-check CBC. (8) Anemia Current Visit: Yes Status: Chronic Etiology unclear: poor nutrition + GI loss. FOBT +. Improved after PRBC transfusion. Consider GI consult. Further workup and evaluation per the primary team. Repeat CBC. 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 (10) Protein calorie malnutrition Current Visit: Yes Status: Chronic The patient is unable to take anything PO due to trismus. POA is open to enteral feedings if a tube can be placed. On chronic TPN prior to admission. Nutrition team has been consulted and following. Qualifiers: Protein-calorie malnutrition severity: severe Qualified Code(s): E43 - Unspecified severe protein-calorie malnutrition (11) Progressive supranuclear palsy Current Visit: No Status: Chronic Consider palliative care consult. - Subjective Interval history: Patient seen and examined. No acute events noted overnight. Patient resting quietly in bed, eyes open. No acute distress noted. Patient non-verbal and unable to verbalize. No family at bedside. No acute distress noted. Infect Dis PN-Objective Data - Labs CBC & Chem 7: 11/04/17 08:17 11/05/17 05:19 Labs: Laboratory Results - last 24 hr 11/03/17 11/04/17 11/04/17 11:05 08:17 12:24 WBC 4.2 L RBC 4.29 Hgb 11.2 L Hct 35.1 L MCV 81.8 L MCH 26.1 L MCHC 31.9 RDW 16.7 H Plt Count 92 L MPV 10.7 Immature Gran % 0.2 Seg Neutrophils % 61.5 Lymphocytes % 26.4 Monocytes % 6.9 Eosinophils % 4.5 Basophils % 0.5 Neutrophils # 2.6 Lymphocytes # 1.1 Monocytes # 0.3 Eosinophils # 0.2 Basophils # 0.0 Immature Plt Fraction 2.9 Sodium Potassium Chloride Carbon Dioxide BUN Creatinine Est GFR ( Amer) Est GFR (Non-Af Amer) BUN/Creatinine Ratio Glucose POC Glucose 87 92 Calculated Osmolality Calcium Phosphorus Magnesium 11/04/17 11/04/17 11/05/17 16:54 23:28 05:19 WBC RBC Hgb Hct MCV MCH MCHC RDW Plt Count MPV Immature Gran % Seg Neutrophils % Lymphocytes % Monocytes % Eosinophils % Basophils % Neutrophils # Lymphocytes # Monocytes # Eosinophils # Basophils # Immature Plt Fraction Sodium 138 Potassium 3.3 L Chloride 108 H Carbon Dioxide 24 BUN 4 L Creatinine 0.59 L Est GFR ( Amer) > 60 Est GFR (Non-Af Amer) > 60 BUN/Creatinine Ratio 7 Glucose 99 POC Glucose 89 104 H Calculated Osmolality 283 Calcium 7.9 L Phosphorus 2.9 Magnesium 1.8 Cultures: Cultures 10/29/17 10:03 Blood Culture - Final Peripheral Venipuncture No growth. 10/29/17 10:02 Blood Culture - Final Peripheral Venipuncture No growth. 10/28/17 18:19 Catheter Tip Culture - Final Intravenous or Arterial Cath Gram Positive Rods 10/29/17 13:54 Legionella Antigen - Final Urine,Catheterized Streptococcus pneumoniae Antigen (M - Final Serology 10/28/17 10/27/17 Range/Units 10:15 23:48 Stool Occult Blood Positive A (Negative) Stl C. diff Tox B Gene Negative (Negative) Exam - Constitutional Vitals: Temp Pulse Resp BP Pulse Ox 97.6 F 48 16 132/71 98 11/05/17 07:40 11/05/17 07:40 11/05/17 07:40 11/05/17 07:40 11/05/17 07:40 General appearance: average body habitus, no acute distress, no febrile - Head Head exam: Present: atraumatic, normal inspection, normocephalic - Eye Eye exam: Present: normal appearance, PERRL Pupils: Present: normal accommodation - ENT ENT exam: Present: mucous membranes dry - Neck Neck exam: Present: normal inspection - Respiratory Respiratory exam: Present: decreased breath sounds (throughout, poor respiratory effort), CTAB. Absent: rales, respiratory distress, rhonchi, wheezes - Cardiovascular Cardiovascular exam: Present: RRR, +S1, +S2 - GI/Abdominal GI/Abdominal exam: Present: normal bowel sounds, soft. Absent: distended, tenderness Additional comments: Mane catheter noted to be draining clear yellow urine. - Extremities Exam Extremities exam: Present: normal inspection. Absent: joint swelling, pedal edema, tenderness - Neurological Exam Neurological exam: Present: altered (Eyes open, follows some commands, non- verbal). Absent: no focal deficits (Moves BLE and RUE on command. LUE contracted/paralysis/flaccid) - Skin Skin exam: Present: dry, intact, normal color, warm - VTE Documentation of Mechanical Device: Intermittent pneumatic compression device Consult Discharge Plan - Plan Referrals: NONE,PCP [Primary Care Provider] - - Attending Attestation I examined this patient and my medical decision-making was reviewed with the Resident Physician. I agree with the documented findings, disposition and treatment plan as described except to the extent set forth below.
--- NOTE | 2017-11-05 10:47 | General Surgery Progress Note ---
Addendum entered and electronically signed by Nilda Davenport CNP 11/05/17 13:09: Reviewed ethics committee recommendations and discussed with Dr. Nava. After discussion, surgery does not feel that it is appropriate to proceed with an exploratory laparotomy for a J-tube placement. The risks of the type of procedure outweigh the benefits for this patient. I discussed with the primary service and they verbalized understanding. Original Note: <Nilda Davenport - Last Filed: 11/05/17 10:44> Date of Encounter: 11/05/17 Time of Encounter: 10:30 - Assessment and Plan (1) Dysphagia Status: Acute Recommend ethics consultation prior to surgical intervention for feeding tube placement Surgery team agrees that placement of a feeding tube would not improve the quality of the patient's life Will follow and await ethics committee recommendations Qualifiers: Dysphagia type: unspecified Qualified Code(s): R13.10 - Dysphagia, unspecified (2) Aspiration pneumonia due to gastric secretions Status: Acute Recommend ethics consultation prior to surgical intervention for feeding tube placement Surgery team agrees that placement of a feeding tube would not improve the quality of the patient's life Will follow and await ethics committee recommendations Qualifiers: Laterality: right Lung location: middle lobe of lung Qualified Code(s): J69.0 - Pneumonitis due to inhalation of food and vomit (3) Protein calorie malnutrition Status: Chronic Recommend ethics consultation prior to surgical intervention for feeding tube placement Surgery team agrees that placement of a feeding tube would not improve the quality of the patient's life Will follow and await ethics committee recommendations Qualifiers: Protein-calorie malnutrition severity: severe Qualified Code(s): E43 - Unspecified severe protein-calorie malnutrition (4) Progressive supranuclear palsy Status: Chronic (5) UTI (urinary tract infection) Status: Acute Antibiotic management per ID Qualifiers: Urinary tract infection type: site unspecified Hematuria presence: without hematuria Qualified Code(s): N39.0 - Urinary tract infection, site not specified (6) Pneumonia Status: Acute Antibiotic management per ID Qualifiers: Pneumonia type: aspiration pneumonia Aspiration pneumonia type: unspecified Laterality: right Lung location: lower lobe of lung Qualified Code(s): J69.0 - Pneumonitis due to inhalation of food and vomit (7) Candidemia Status: Acute Antifungal management per ID Subjective Patient reports: no new complaints, afebrile Objective Vital Signs - Last 8 Hours Temp Pulse Resp BP Pulse Ox 11/05/17 07:40 97.6 F 48 16 132/71 98 11/05/17 04:09 97.4 F L 50 14 148/81 96 Intake and Output 11/04/17 11/05/17 11/05/17 23:59 07:59 15:59 Intake Total 100 / 100 100 / 100 Output Total 750 / 750 1500 / 1500 Balance -650 / -650 -1400 / -1400 Intake: IV Fluids 100 / 100 100 / 100 Zosyn 3.375 GM In 0.9 % Sodium 100 / 100 100 / 100 Chloride (Mini-Bag +) 100 ML @ 25 mls/hr IVPB Q8HR [facility] Rx#: [id number] Oral 0 / 0 0 / 0 Output: Catheter 750 / 750 1500 / 1500 Other: Meal Dinner Percent of Meal Consumed 0% Stool Size Small Small Stool Consistency liquid liquid Stool Characteristics Normal for Patient Stool Color Brown Brown # Bowel Movements 1 1 # Bowel Movement Diapers 1 Weight 48.2 kg Blood Glucose* 104 88 Patient Weight 11/05/17 23:59 Weight 48.2 kg - General physical appearance chronically ill, other (patient contracted) - Eyes PERRL - ENT dry mucosa - Neck Neck exam: trachea midline - Respiratory normal respiratory effort, clear to auscultation, other (diminished breath sounds bilaterally) - Cardiovascular Cardiovascular exam: Present: bradycardia - Abdomen Abdomen: Present: bowel sounds present, soft - Musculoskeletal other (severe deconditioning and contractures) - Psychiatric other (Unable to assess; patient non-verbal) - Labs 11/04/17 08:17 11/05/17 05:19 Diabetes panel 11/05/17 Range/Units 05:19 Sodium 138 (136-145) mEq/L Potassium 3.3 L (3.5-5.1) mEq/L Chloride 108 H (98-107) mEq/L Carbon Dioxide 24 (23-29) mEq/L BUN 4 L (8-23) mg/dL Creatinine 0.59 L (0.60-1.20) mg/dL Glucose 99 (70-105) mg/dL Calcium 7.9 L (8.6-10.3) mg/dL Calcium panel 11/05/17 Range/Units 05:19 Calcium 7.9 L (8.6-10.3) mg/dL Phosphorus 2.9 (2.7-4.5) mg/dL Pituitary panel 11/05/17 Range/Units 05:19 Sodium 138 (136-145) mEq/L Potassium 3.3 L (3.5-5.1) mEq/L Chloride 108 H (98-107) mEq/L Carbon Dioxide 24 (23-29) mEq/L BUN 4 L (8-23) mg/dL Creatinine 0.59 L (0.60-1.20) mg/dL Glucose 99 (70-105) mg/dL Calcium 7.9 L (8.6-10.3) mg/dL Adrenal panel 11/05/17 Range/Units 05:19 Sodium 138 (136-145) mEq/L Potassium 3.3 L (3.5-5.1) mEq/L Chloride 108 H (98-107) mEq/L Carbon Dioxide 24 (23-29) mEq/L BUN 4 L (8-23) mg/dL Creatinine 0.59 L (0.60-1.20) mg/dL Glucose 99 (70-105) mg/dL Calcium 7.9 L (8.6-10.3) mg/dL - VTE Documentation of Mechanical Device: Intermittent pneumatic compression device Consult Discharge Plan - Plan Referrals: NONE,PCP [Primary Care Provider] - - Attending Attestation For this encounter, I have reviewed the INSTRUCTIONAL ASSISTANT or PA documentation, treatment plan, and medical decision making; and I have had face to face time with this patient. <Fernando Nava E - Last Filed: 11/06/17 11:55> Date of Encounter: 11/06/17 Objective - Labs 11/04/17 08:17 11/05/17 05:19 - Attending Attestation I contacted Peyton Howie, the power of disability attorney, we had a brief 5-10 minute conversation regarding this Miguel condition. It is my belief, that putting in a feeding tube is cruel and unusual punishment for this patient. She has the inability to verbalize any discomfort nor does she have the ability to move. Placement of a J-tube would require a general anesthetic. There is significant chance that she would be bound to the ventilator following the procedure. It also puts her at increased risk for aspiration. I tried to explain to Mrs. Denise that not eating was not painful. However introducing enteral nutrition without the ability to monitor the patient's status could cause abdominal cramping and undue discomfort. She was belligerent in her responses. At that point I recommended they seek a fourth opinion from another physician. I described to Ms. Denise that I would not participate in prolonging Mrs. Miguel without the ability to her to to communicate. Ethically, I feel it is wrong to continue to prolong this patient suffering with tube feeds.
[2017-11-05] MEDS: D5% in 0.45% NACL w KCl 10 MEQ/1,000 ML MLS IVC SCH (11:44)
[2017-11-05 12:04] VITALS: BP 158/77
--- NOTE | 2017-11-05 15:30 | Discharge Summary ---
<Kai Cunha - Last Filed: 11/05/17 19:23> Date of Encounter: 11/05/17 Time of Encounter: 09:20 - Discharge Diagnosis (1) Sepsis Priority: Primary Status: Resolved Qualifiers: Sepsis type: Huy Qualified Code(s): B37.7 - Candidal sepsis (2) Candidemia Priority: Primary Status: Acute (3) Protein calorie malnutrition Priority: Secondary Status: Chronic Qualifiers: Protein-calorie malnutrition severity: severe Qualified Code(s): E43 - Unspecified severe protein-calorie malnutrition (4) Anemia Priority: Secondary Status: Chronic Qualifiers: Anemia type: other cause Other causes of anemia: chronic disease, other Qualified Code(s): D63.8 - Anemia in other chronic diseases classified elsewhere (5) Abdominal pain Priority: Secondary Status: Resolved Qualifiers: Abdominal location: generalized Qualified Code(s): R10.84 - Generalized abdominal pain (6) UTI (urinary tract infection) Priority: Secondary Status: Acute Qualifiers: Urinary tract infection type: site unspecified Hematuria presence: without hematuria Qualified Code(s): N39.0 - Urinary tract infection, site not specified (7) Pneumonia Priority: Secondary Status: Acute Qualifiers: Pneumonia type: aspiration pneumonia Aspiration pneumonia type: unspecified Laterality: right Lung location: lower lobe of lung Qualified Code(s): J69.0 - Pneumonitis due to inhalation of food and vomit (8) Generalized pain Priority: Secondary Status: Chronic (9) Progressive supranuclear palsy Priority: Secondary Status: Chronic (10) Central line-associated bloodstream infection Priority: Secondary Status: Acute Qualifiers: Encounter type: subsequent encounter Qualified Code(s): T80.211D - Bloodstream infection due to central venous catheter, subsequent encounter Hospital course: Ms. 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 The patient is nonverbal, however at the senior living she was found to have tachycardia, shortness of breath and significant fever. She was transported to the ED at which time a chest x-ray was done which showed right lower lobe pneumonia, as well as a UA which showed a UTI. The patient also received labs which did demonstrate a lactic acidosis. The patient was admitted for severe sepsis secondary to UTI, hospital acquired pneumonia. Initially, the patient was found to be hypotensive and she was started on aggressive IV fluid rehydration along with broad-spectrum antibiotics including Zosyn, meropenem and vancomycin. Additionally, we were suspicious for possible fungal infection due to the patient's long-term use of TPN, so fluconazole was started as well. She did not immediately respond to these antibiotics, however did not respond to more fluids. Her blood cultures eventually did come back positive for huy parapsilosis, and infectious disease was consulted at that time. At the recommendation of infectious disease, the PICC line was removed and the patient was taken off TPN at that time. The patient also was positive urine cultures with MRSA. We continued to treat this while providing IV hydration to this patient. The patient also appeared to have significant abdominal pain on examination, and a CT of the abdomen/pelvis suggested constipation may be the cause. She improved following bowel movement. Goals of care were discussed with the patient's POA who insisted that consultation for PEG tube insertion be made. It was noted that on prior admission approximately 2 months ago the patient had an evaluation by interventional radiology at which time they determined that it would be inappropriate to provide PEG tube insertion for this patient. We did consult gastroenterology who recommended that the patient not receive a PEG tube, and instead is a tube is to be placed J-tube would be more appropriate due to risk of aspiration with PEG tube. We ask surgery to consult and they requested an ethics committee consult. Following, the surgeon determined that it would be inappropriate to do this surgery at this time, and additionally that the surgery was too high risk to be completed at this facility. Infectious disease recommended against the addition of TPN to this patient's regimen due to the increased risk for serious infection. We agreed with this decision because we felt that the addition of another intravenous line would introduce increased risk of infection. The patient did continue to improve clinically with regard to vitals and evidence of systemic infection. At the request of the POA, the patient was transferred to [facility] in [place] for further care, and for evaluation for surgical intervention. Discharge discussed with: nurse, social work, case management, performance consultant, other (Power of Cigarette Tester) - Time Spent with Patient Total time spent providing and/or coordinating discharge services: Greater than 30 minutes - Discharge Medications Home Medications: Dextrose Gel [Gluctose] 15 gm PO ONCE PRN gel..gram. 09/06/17 [Rx] Glucagon, Human Recombinant [Glucagen] 1 mg IM ONCE PRN vial 09/06/17 [Rx] Lacri-Lube [Lacri-lube] 1 appl BOTH EYES BID tube 09/06/17 [Rx] Acetaminophen [Tylenol 650mg SUPP] 650 mg RC Q4H PRN 10/26/17 [History] Dextrose 10 % in Water [Dextrose 10%-Water IV Solution] 1,000 ml IV AD 10/26/17 [History] Heparin 5,000 unit SQ Q12H 10/26/17 [History] Morphine Oral CONC [Roxanol] 5 mg SL Q4H PRN 10/26/17 [History] Ondansetron [Zofran] 4 mg IM Q4H PRN 10/26/17 [History] Polyvinyl Alcohol [Artificial Tears] 1 drop BOTH EYES Q4H PRN 10/26/17 [History] Dextrose 50 % in Water (Syg) [Dextrose 50% (Syg)] 25 ml IVP AD PRN syringe 01/17 [Rx] Dextrose Gel [Gluctose] 15 gm PO ONCE PRN gel..gram. 11/05/17 [Rx] Dextrose Gel [Gluctose] 30 gm PO ONCE PRN gel..gram. 11/05/17 [Rx] Glucagon, Human Recombinant [Glucagen] 1 mg IM ONCE PRN vial 11/05/17 [Rx] Insulin LISPRO [HumaLOG] 0 units SQ Q6HR vial 11/05/17 [Rx] Pantoprazole [Protonix] 40 mg IVP DAILY vial 11/05/17 [Rx] Allergies/Adverse Reactions: 3 Allergy/AdvReac Type Severity Reaction Status Date / Time codeine Allergy Itching Verified 10/26/17 18:24 Date of admission: 10/26/17 22:26 Primary care physician: PCP NONE Consults: 10/27/17 09:42 consult to heat treating furnace tender [Consult to Nutrition] [CONS] Routine Comment: Consulting Provider: NUTRITION Reason for Dietary Consult: TPN Start and Manage 10/27/17 09:58 Consult to Solid Waste Truck Driver [CONS] Routine Reason for SW Consult: Patient from [facility] 10/28/17 09:29 Consult to Infectious Diseases [CONS] Routine Consulting Provider: Infectious Disease [place] Reason for Consult: severe sepsis, with pneumonia and UTI, and candidemia Time Notified: 09:30 Call Completed: No 10/28/17 10:11 Consult to Physician [CONS] Routine Consulting Provider: Thad Stovall Reason for Consult: invasive candidemia Time Notified: 10:15 Call Completed: Yes 10/28/17 12:08 Consult to Invasive Line Access Team [CONS] Routine Reason for Consult: POOR ACCESS Line Type: EPIV 11/02/17 08:29 Consult to Invasive Line Access Team [CONS] Routine Reason for Consult: PICC Insertion Line Type: PICC 11/03/17 13:55 Consult to Gastroenterology [CONS] Routine Consulting Provider: Gastroenterology Kasia Reason for Consult: Evaluate for PEG insertion Call Completed: Yes 11/04/17 11:47 Consult to Ethics [CONS] Routine Comment: Reason for Consult: Requests J-tube insertion against medical advice Time Notified: 11:50 Call Completed: Yes Discharging clinician: Kai Cunha Anticipated date of discharge: 11/05/17 - Constitutional Vitals: Temp Pulse Resp BP Pulse Ox 97.7 F 50 18 158/77 100 11/05/17 11:47 11/05/17 11:47 11/05/17 11:47 11/05/17 11:47 11/05/17 11:47 General appearance: Present: A&O X 0, mild distress (Less so than previously), underweight Exam: - Head Head exam: Present: atraumatic, normocephalic - Eye Eye exam: Present: PERRL, conjuntiva pink, sclera anicteric Pupils: Present: PERRL - Neck Neck exam: Present: supple, trachea midline. Absent: lymphadenopathy - Respiratory Respiratory exam: Present: decreased breath sounds, CTAB, rales. Absent: accessory muscle use, rhonchi, wheezes - Cardiovascular Cardiovascular exam: Present: RRR, +S1, +S2. Absent: diastolic murmur, gallop, rubs, systolic murmur - GI/Abdominal GI/Abdominal exam: Present: distended, normal bowel sounds, soft, no peritoneal signs. Absent: tenderness - Extremities Exam Extremities exam: Present: warm, radial pulses palpable and symmetrical. Absent : calf tenderness, cyanotic, pedal edema Additional comments: Generalized weakness All extremities are atrophied Upper extremities are minimally contracted - Neurological Exam Neurological exam: Absent: CN II-XII intact, oriented X3, no focal deficits, pronater drift, facial droop, speech deficit - Skin Skin exam: Present: dry, intact - Patient Status Disposition: Transfer Critical Access Hosp Condition: Serious Functional capacity at discharge: bed bound Overall status at discharge: other - Discharge Instructions Follow Up With: NONE,PCP [Primary Care Provider] - - Diet and Activity Activity: as per physical therapy Diet: other - VTE Documentation of Mechanical Device: Intermittent pneumatic compression device <Bruno Flores - Last Filed: 11/05/17 20:00> Date of Encounter: 11/05/17 - Discharge Diagnosis (1) Sepsis Status: Resolved Qualifiers: Sepsis type: Huy Qualified Code(s): B37.7 - Candidal sepsis (2) Central line-associated bloodstream infection Status: Acute Qualifiers: Encounter type: subsequent encounter Qualified Code(s): T80.211D - Bloodstream infection due to central venous catheter, subsequent encounter (3) Pneumonia Status: Acute Qualifiers: Pneumonia type: aspiration pneumonia Aspiration pneumonia type: unspecified Laterality: right Lung location: lower lobe of lung Qualified Code(s): J69.0 - Pneumonitis due to inhalation of food and vomit (4) Protein calorie malnutrition Status: Chronic Qualifiers: Protein-calorie malnutrition severity: severe Qualified Code(s): E43 - Unspecified severe protein-calorie malnutrition (5) Anemia Status: Chronic Qualifiers: Anemia type: other cause Other causes of anemia: chronic disease, other Qualified Code(s): D63.8 - Anemia in other chronic diseases classified elsewhere (6) Progressive supranuclear palsy Status: Chronic Hospital course: Ms. Miguel is a 72 year old female - Time Spent with Patient Total time spent providing and/or coordinating discharge services: 39min Date of admission: 10/26/17 22:26 Primary care physician: PCP NONE Consults: 10/27/17 09:42 consult to heat treating furnace tender [Consult to Nutrition] [CONS] Routine Comment: Consulting Provider: NUTRITION Reason for Dietary Consult: TPN Start and Manage 10/27/17 09:58 Consult to Solid Waste Truck Driver [CONS] Routine Reason for SW Consult: Patient from [facility] 10/28/17 09:29 Consult to Infectious Diseases [CONS] Routine Consulting Provider: Infectious Disease [place] Reason for Consult: severe sepsis, with pneumonia and UTI, and candidemia Time Notified: 09:30 Call Completed: No 10/28/17 10:11 Consult to Physician [CONS] Routine Consulting Provider: Thad Stovall Reason for Consult: invasive candidemia Time Notified: 10:15 Call Completed: Yes 10/28/17 12:08 Consult to Invasive Line Access Team [CONS] Routine Reason for Consult: POOR ACCESS Line Type: EPIV 11/02/17 08:29 Consult to Invasive Line Access Team [CONS] Routine Reason for Consult: PICC Insertion Line Type: PICC 11/03/17 13:55 Consult to Gastroenterology [CONS] Routine Consulting Provider: Gastroenterology Kasia Reason for Consult: Evaluate for PEG insertion Call Completed: Yes 11/04/17 11:47 Consult to Ethics [CONS] Routine Comment: Reason for Consult: Requests J-tube insertion against medical advice Time Notified: 11:50 Call Completed: Yes - Constitutional Vitals: Temp Pulse Resp BP Pulse Ox 97.7 F 50 18 158/77 100 11/05/17 11:47 11/05/17 11:47 11/05/17 11:47 11/05/17 11:47 11/05/17 11:47 - Attending Attestation I examined this patient and my medical decision-making was reviewed with the Resident Physician on 11/05/17. I agree with the documented findings, disposition and treatment plan as described except to the extent set forth below. Ms Miguel has been admitted for candidemia and sepsis. She had PICC removed and placed on IV medications. Exam Alert Appears comfortable Heart reg No wheeze Abd soft PICC removed and she was placed on IV Diflucan and IV abx for UTI. VALENTÍN had multiple discussions regarding POC. She relayed that patient wanted everything done including feeding tube. PICC was not reinserted initially due to infection. ID approved reinsertion but this was held due to discussion of enteral tube and risk of PICC for reinfection. We were allowing longer time without IV device. Multiple physicians and services consulted regarding enteral tube placement. All felt that this was not a procedure that they felt should be done in this patient and risks were higher. It was suggested that patient be moved to another facility for further evaluation. VLAENTÍN notified and was upset about these decisions despite being told reasoning. She felt we were "killing" patient. Ethics had been involved as well. During this time patient was maintained on IV fluids. Labs improved and clinically she improved as well. Ultimately decision was made to pursue transfer. [facility] called - this would be a "lateral" transfer and patient would be responsible for transport cost. [facility] contacted and accepted patient. She has been discharged to [facility].
[2017-11-05] MEDS ORDERED: Aminoglycoside Consult 1 EACH MC ONE (19:04)
== END 2017-11-05 19:05 | disposition critical access hospital (66) | DRG 314 ==
LOC: EMEROO 18:04 → 2NENU 18:04 → SUATTDRO 22:26 → 2NENU 10-27 02:00
PROVIDERS: ADMIT Internal Medicine; ATTEND Internal Medicine